=== PATIENT | male | born 1945 | race Caucasian/White ===

== ENCOUNTER 2023-04-12 18:54 | Emergency (ER) | payer MEDICARE, SELFPAY ==
[2023-04-12 19:12] VITALS: BP 151/61; PULSE 104; RESP 18; TEMP 36.7; O2SAT 95
--- NOTE | 2023-04-12 19:18 | ED.URI ---
HPI - URI/Sore Throat General Stated Complaint: Body Aches/Sore Throat/Cough History of Present Illness HPI Narrative: Patient presents requesting a covid test. Patient states 3 ays ago his symptoms started with runny nose, cough and body aches. no shortnnes of breath and no chest pain Related Data Home Medications Medication Instructions Recorded Confirmed allopurinol 300 mg tablet 300 mg PO DAILY 04/12/23 04/12/23 amlodipine 10 mg tablet 10 mg PO DAILY 04/12/23 04/12/23 atorvastatin 80 mg tablet 80 mg PO DAILY 04/12/23 04/12/23 finasteride 5 mg tablet 5 mg PO DAILY 04/12/23 04/12/23 lisinopril 40 mg tablet 40 mg PO DAILY 04/12/23 04/12/23 meloxicam 15 mg tablet 15 mg PO DAILY 04/12/23 04/12/23 terazosin 5 mg capsule 5 mg PO DAILY 04/12/23 04/12/23 testosterone 50 mg/5 gram (1 %) 2 packet transdermal DAILY 04/12/23 04/12/23 transdermal gel tramadol 50 mg tablet 50 mg PO TID PRN Pain (Scale Score 04/12/23 04/12/23 7-10) Allergies Allergy/AdvReac Type Severity Reaction Status Date / Time No Known Allergies Allergy Verified 04/12/23 19:25 Course Course Level of Care: Express Care Visit Vital Signs Vital signs: Vital Signs Temperature 36.7 C 04/12/23 19:12 Pulse Rate 104 H 04/12/23 19:12 Respiratory Rate 18 04/12/23 19:12 Blood Pressure 151/61 H 04/12/23 19:12 Pulse Oximetry 95 04/12/23 19:12 Oxygen Delivery Room Air 04/12/23 19:12 Temperature 36.7 C 04/12/23 19:12 Pulse Rate 104 H 04/12/23 19:12 Respiratory Rate 18 04/12/23 19:12 Blood Pressure 151/61 H 04/12/23 19:12 Pulse Oximetry 95 04/12/23 19:12 Oxygen Delivery Room Air 04/12/23 19:12 Discharge Plan Discharge Clinical Impression: COVID-19 Patient Disposition: Home, Self-Care Condition: Stable Instructions: Droplet Precautions (ED), COVID-19 (Coronavirus Disease 2019) (ED), Face Coverings (Masks) and COVID-19 (ED) Additional Instructions: Stay home - protect others by not exposing them. You are a public health risk if you have the flu. Don't go into public unless necessary. - Wash your hands, cover your cough/sneeze. - Stay hydrated - sip on things frequently. Water, tea, diluted lemon juice, and bone broth are all good choices. Eat if it sounds good, if not, just keep drinking - Vitamin C, Zinc, Echinacea may help in moderation. - Honey is as good as Robitussin for a cough, and has less side effects (do not give honey to babies under 2)- - Fevers = your body's way of fighting the virus. Your body knows that you can survive the fever, but hopes the virus can't. It means your immune system works - yay! It doesn't feel so good but as long as it can be kept below 103 and you can drink fluids, it is ok to have a fever. Remember, the fever is not the enemy! - The normal dose for acetaminophen (Tylenol) for an adult is 650 - 1,000 mg every 4-6 hours. It helps with pain and fever. - The normal dose for ibuprofen (Advil, Motrin) is 400 mg every 6 hours WITH FOOD. Do not take ibuprofen if you have heart disease, kidney disease, or ulcers. Acetaminophen would then be safer for you. - Taking more acetaminophen than recommended can cause liver failure. You don't want a liver transplant, follow the directions. - Taking more ibuprofen than recommended will increase your risk of high blood pressure, heart attack, kidney failure, or ulcers, but will NOT decrease your pain more than the normal dose. So please follow the directions. - If you are having trouble breathing, are vomiting so much that you aren't peeing at least 3 times per day, you have a severely stiff neck, a weird rash, fever greater than 103 or you seriously think you will not survive please return, call 911 or go to the Emergency Department. Prescriptions: No Action meloxicam 15 mg tablet 15 mg PO DAILY lisinopril 40 mg tablet 40 mg PO DAILY tramadol 50 mg tablet 50 mg PO TID PRN (Reason: Pain (Scale Score 7-10))
[2023-04-12 19:25] VITALS: BP 151/61; PULSE 104; RESP 18; TEMP 36.7; O2SAT 95
== END 2023-04-12 19:30 | disposition home or self-care (01) ==
PROVIDERS: Emergency Provider Nurse Practitioner Family; PCP Physician Assistant
DX: U07.1 COVID-19 (principal)
CPT/HCPCS: 87426; 87804; 99213; G0463

== ENCOUNTER 2024-01-25 10:03 | Emergency (ER) | payer MEDICARE, SELFPAY ==
--- NOTE | ~2024-01-25 | XR_ITS ---
EXAMINATION: XR chest 2V DATE: 01/25/2024 10:39 INDICATION: 2 weeks of cough TECHNIQUE: PA and lateral views of the chest were obtained. COMPARISON: None FINDINGS: Mild hyperexpansion of lungs with flattening of the diaphragm suggestive but not diagnostic of COPD. Very small right pleural effusion with blunting at the posterior sulcus. Mild streaky opacities at bi lateral lung bases and favor atelectasis over pneumonia. Subtle opacity with smooth curve margin pote ntially pleural-based projecting over the anterolateral right upper lung zone most evident for across the anterolateral right second rib. No pulmonary edema, pneumothorax or left pleural effusion. Heart size is normal. Mild thoracic spondylosis. IMPRESSION: 1. . Suggestive but not diagnostic of COPD. 2. Small right pleural effusion and mild streaky bibasilar opacities and favor atelectasis over pneum onia. 3. Indeterminate subtle masslike opacity projecting over the lateral right upper lung zone, potential ly pleural-based. Recommend chest CT for further evaluation. Reviewed, dictated and finalized at location [facility]. [facility] IMPRESSION: 1. . Suggestive but not diagnostic of COPD. 2. Small right pleural effusion and mild streaky bibasilar opacities and favor atelectasis over pneumonia. 3. Indeterminate subtle masslike opacity projecting over the lateral right uppe r lung zone, potentially pleural-based. Recommend chest CT for further evaluati on.
[2024-01-25 10:12] VITALS: BP 144/56; PULSE 66; RESP 16; TEMP 36.3; O2SAT 97
--- NOTE | 2024-01-25 10:23 | ED_ITS ---
HPI - URI/Sore Throat General Chief Complaint: Upper Respiratory Infection Stated Complaint: Chest Congestion/Shortness of Breath Time Seen by Provider: 01/25/24 10:17 Source: patient Mode of arrival: ambulatory Limitations: no limitations History of Present Illness HPI Narrative: 70-year-old male with history of hypertension presented for complaint of cough and chest congestion for 2 weeks. States the chest feels clogged, cough is nonproductive. Denies associated shortness of breath, wheezing, nausea, vomiting, diarrhea, fevers or lethargy. Taking Mucinex, TheraFlu for symptoms. Related Data Home Medications Medication Instructions Recorded Confirmed allopurinol 300 mg tablet 300 mg PO DAILY 04/12/23 04/12/23 amlodipine 10 mg tablet 10 mg PO DAILY 04/12/23 04/12/23 atorvastatin 80 mg tablet 80 mg PO DAILY 04/12/23 04/12/23 finasteride 5 mg tablet 5 mg PO DAILY 04/12/23 04/12/23 lisinopril 40 mg tablet 40 mg PO DAILY 04/12/23 04/12/23 meloxicam 15 mg tablet 15 mg PO DAILY 04/12/23 04/12/23 terazosin 5 mg capsule 5 mg PO DAILY 04/12/23 04/12/23 testosterone 50 mg/5 gram (1 %) 2 packet transdermal DAILY 04/12/23 04/12/23 transdermal gel tramadol 50 mg tablet 50 mg PO TID PRN Pain (Scale Score 04/12/23 04/12/23 7-10) Allergies Allergy/AdvReac Type Severity Reaction Status Date / Time No Known Allergies Allergy Verified 04/12/23 19:25 Review of Systems Review of Systems: CONSTITUTIONAL: Denies body aches, fever, chills, or sweats. EYES: Denies visual changes, redness, or discharge. ENT: Denies rhinorrhea, congestion, sore throat, or otalgia. CARDIOVASCULAR: Denies chest pain, palpitations, or edema. RESPIRATORY: Reports cough, denies sob, wheezing. GASTROINTESTINAL: Denies abdominal pain, nausea, vomiting, or diarrhea. SKIN: Denies rash MUSCULOSKELETAL: Denies back pain, joint pain, or myalgia. NEUROLOGIC: Denies headache All systems reviewed & are unremarkable except as noted in HPI and below PMFSH Past Medical History Medical History (Updated 01/25/24 @ 11:14 by QI Dotson HTN (hypertension) Comments At time of signature, I have reviewed and agree with nursing past medical, surgical, social and family history unless otherwise noted. Please see nursing chart for further information. There is no relevant family history pertinent to the presenting complaint Exam Narrative: GENERAL: Well-appearing, in no acute distress. EYES: EOMI. No redness or drainage. Conjunctivae normal. ENT: Mucous membranes pink and moist. No rhinorrhea. TMs normal bilaterally. Throat normal. Uvula midline. NECK: Normal AROM. Supple. CHEST: No respiratory distress. Faint rub to right mid lung otherwise Lungs clear. 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 HEART: Regular rate and rhythm. No murmur appreciated. ABDOMEN: Soft, nontender, nondistended, normal active bowel sounds. EXTREMITIES: Normal range of motion. No edema. SKIN: Warm, dry, Capillary refill normal. Normal skin turgor. NEURO: Alert and oriented x3. Gait steady. PSYCH: Normal affect. Course Course Emergency Course: Patient is aware of diagnosis, understands and agrees to treatment plan. Anticipatory guidance given. Patient agrees to follow-up as directed and is aware of reasons to seek care at the emergency department. Portions of this record may have been created with voice recognition software Level of Care: Express Care Visit Vital Signs Vital signs: Vital Signs Temperature 97.4 F L 01/25/24 10:12 Pulse Rate 66 01/25/24 10:12 Respiratory Rate 16 01/25/24 10:12 Blood Pressure 144/56 H 01/25/24 10:12 Pulse Oximetry 97 01/25/24 10:12 Oxygen Delivery Room Air 01/25/24 10:12 Temperature 97.4 F L 01/25/24 10:12 Pulse Rate 66 01/25/24 10:12 Respiratory Rate 16 01/25/24 10:12 Blood Pressure 144/56 H 01/25/24 10:12 Pulse Oximetry 97 01/25/24 10:12 Oxygen Delivery Room Air 01/25/24 10:12 MDM - URI/Sore Throat MDM Narrative Medical decision making narrative: Discussed physical exam findings and CXR with pt. States he was exposed to mesothelioma 24 years ago. Advised close f/u with pcp today. Faxed report of CXR to Jostin Gregory PA-C, provided disc for pt. Advised supportive measures and signs/symptoms to go to the ER. Pt is appropriate for outpt treatment and f/u. v/u. Differential Diagnosis Differential diagnosis: Likely bronchitis and other (Angioedema, perforation, asthma, pneumonia, PE, tension pneumothorax, cardiac tamponade [place], pericarditis, pleural effusion, CHF, bronchitis, cardiac arrhythmia) Imaging Data Radiologist's impression: Patient: Rufino Mike : 1945 MR#: [id number] Age: 78 Acct:[id number] Loc: [facility] ADM Date: 01/25/24Attending Dr: Ordering Physician: Yuko Ortega APRN Date of Service: 01/25/24 Procedure(s): XR chest 2V Accession Number(s): [id number] cc: Yuko Ortega APRN~ EXAMINATION: XR chest 2V DATE: 01/25/2024 10:39 INDICATION: 2 weeks of cough TECHNIQUE: PA and lateral views of the chest were obtained. COMPARISON: None FINDINGS: Mild hyperexpansion of lungs with flattening of the diaphragm suggestive but not diagnostic of COPD. Very small right pleural effusion with blunting at the posterior sulcus. Mild streaky opacities at bilateral lung bases and favor atelectasis over pneumonia. Subtle opacity with smooth curve margin potentially pleural-based projecting over the anterolateral right upper lung zone most evident for across the anterolateral right second rib. No pulmonary edema, pneumothorax or left pleural effusion. Heart size is normal. Mild thoracic spondylosis. IMPRESSION: 1. . Suggestive but not diagnostic of COPD. 2. Small right pleural effusion and mild streaky bibasilar opacities and favor atelectasis over pneumonia. 3. Indeterminate subtle masslike opacity projecting over the lateral right upper lung zone, potentially pleural-based. Recommend chest CT for further evaluation. Discharge Plan Discharge Clinical Impression: Acute lower respiratory tract infection, Abnormal chest x-ray Patient Disposition: Home, Self-Care Condition: Stable Instructions: Antibiotic Form, Pneumonia (ED) Additional Instructions: We discussed the need to follow up with your primary care provider today regarding the abnormal chest xray, and the need for CT scan for further evaluation. Call your primary care provider today. Pneumonia is a lung infection that can cause a fever, cough, and trouble breathing. How it spreads: When someone with bacterial pneumonia coughs, sneezes, or talks, they release respiratory droplets into the air that can be inhaled by others.?You can also get pneumonia by touching a contaminated surface or object and then touching your mouth or nose. You're generally contagious for around 48 hours after starting antibiotics and your fever goes away.? To prevent the spread of pneumonia, you can:? ? Get vaccinated? ? Wash your hands often with soap and water for 20 seconds? ? Cover your mouth with a tissue when you cough or sneeze? ? Avoid people who are already sick with pneumonia? ? Stay home when you have pneumonia Take antibiotics as directed until complete. eat small frequent meals. Get lots of rest and drink fluids. Alternate Tylenol and ibuprofen for pain/fever [id number] cough medication can cause drowsiness, take according to package directions If you have nasal congestion, you can take Zyrtec, Claritin along with Flonase spray Call your Primary Care Doctor and make a follow-up appointment in 3 days. Go to the ER for worsening symptoms or concerns Prescriptions: New azithromycin [Zithromax Z-Reynaldo] 250 mg tablet See Rx Instructions .ROUTE .COMPLEX Qty: 6 0RF Rx Instructions: For 250 mg dose pack: take 500 mg today (day 1), then 250 mg for 4 days (days 2-5) methylprednisolone [Medrol (Reynaldo)] 4 mg tablets,dose pack See Rx Instructions .ROUTE .COMPLEX Qty: 21 0RF Rx Instructions: orally per package directions No Action meloxicam 15 mg tablet 15 mg PO DAILY lisinopril 40 mg tablet 40 mg PO DAILY tramadol 50 mg tablet 50 mg PO TID PRN (Reason: Pain (Scale Score 7-10)) testosterone 50 mg/5 gram (1 %) gel 2 packet transdermal DAILY terazosin 5 mg capsule 5 mg PO DAILY atorvastatin 80 mg tablet 80 mg PO DAILY amlodipine 10 mg tablet 10 mg PO DAILY finasteride 5 mg tablet 5 mg PO DAILY allopurinol 300 mg tablet 300 mg PO DAILY Follow-up/Referrals: PHYSICIAN NOT ON STAFF,NONSTAFF [Primary Care Provider] - Time of Disposition: 11:15
== END 2024-01-25 11:23 | disposition home or self-care (01) ==
PROVIDERS: Emergency Provider Nurse Practitioner Family
DX: J22 Unspecified acute lower respiratory infection (principal); R91.8 Other nonspecific abnormal finding of lung field; I10 Essential (primary) hypertension
CPT/HCPCS: 71046; 99213; G0463

== ENCOUNTER 2024-10-30 20:31 | Observation (INO) | payer MEDICARE, SELFPAY ==
--- NOTE | ~2024-10-30 | CT_ITS ---
EXAMINATION: CT brain carl glez, 10/30/2024 20:55 CDT HISTORY: confusion COMPARISON: No comparisons available. Technique: Axial images obtained of the brain without contrast. One or more of the following dose reduction techniques were used: automated exposure control, adjustment of the mA and/or kV according to patient size, use of iterative reconstruction technique. Findings: No acute infarct or parenchymal hemorrhage. No abnormal mass or mass effect. No midline shift. No extra-axial fluid collections. No hydrocephalus. Mastoid air cells unremarkable. Sinuses and orbits unremarkable. No acute fracture. No significant facial or scalp soft tissue swelling evident. No radiopaque foreign body is seen. Impression: 1.No acute intracranial abnormality. Reviewed, dictated and finalized at location A. Impression: 1.No acute intracranial abnormality.
--- NOTE | ~2024-10-30 | XR_ITS ---
EXAMINATION: XR chest 1V portable 10/30/2024 21:33 INDICATION: Confusion TECHNIQUE:Portable AP supine frontal images of the chest were obtained. COMPARISON: 02/12/2024 FINDINGS: Left-sided central venous catheter with its tip at the junction between the left brachiocephalic vein and superior vena cava. No pneumothorax. No pleural effusion. No free air under the diaphragm. Cardiomediastinal silhouette is mildly enlarged. Right hilar region is prominent. IMPRESSION: 1: Right hilar region is prominent. Differential includes overlapping vasculature, adenopathy, consolidation or mass. A chest CT with contrast is recommended. 2. Left-sided central venous catheter with its tip at the junction between the left brachiocephalic vein and superior vena cava. Reviewed, dictated and finalized at location Q. IMPRESSION: 1: Right hilar region is prominent. Differential includes overlapping vasculatu re, adenopathy, consolidation or mass. A chest CT with contrast is recommended. 2. Left-sided central venous catheter with its tip at the junction between the left brachiocephalic vein and superior vena cava.
--- NOTE | ~2024-10-30 | MR_ITS ---
EXAMINATION: MR brain/brain stem wo/w con DATE: 10/31/2024 10:55 INDICATION: CTA brain/carotid dated 10/30/2024 TECHNIQUE: Magnetic resonance imaging (MRI) of the brain and brainstem was performed without and with 15 cc MultiHance intravenous contrast. Sequences included sagittal and axial T1-weighted SE, axial diffusion-weighted FS SE, axial T2*-weighted GRE, axial T2-weighted FLAIR Propeller, and axial T2-weighted Propeller. Apparent diffusion coefficient (ADC) maps were created. COMPARISON: CTA brain/carotid dated 10/30/2024. FINDINGS: Brain parenchymal volume is normal for age. There are scattered mild periventricular and subcortical white matter changes, most likely related to small vessel ischemic disease (microangiopathy). No acute infarction or hemorrhage. No ventriculomegaly or midline shift. No abnormal contrast enha ncement. Paranasal sinuses are unremarkable. Structures of the posterior fossa including 7/8th cranial nerve complexes are normal. IMPRESSION: 1. No acute intracranial abnormality. 2: Chronic age-related findings. Reviewed, dictated and finalized at location O.
--- NOTE | ~2024-10-30 | CT_ITS ---
EXAMINATION: CTA brain carotid DATE: 10/31/2024 13:27 CDT INDICATION: Confusion TECHNIQUE: Computed tomographic angiography (CTA) of the head was performed with intravenous contrast. CTA of the neck was performed with intravenous contrast. The dose-length product was 1009.97 mGy-cm. Maximum intensity projection and volume rendered 3D-reconstructions were created by the technologist on a separate workstation. COMPARISON: None. FINDINGS: HEAD CTA: Bilateral middle cerebral arteries, anterior cerebral arteries and posterior cerebral arteries are grossly unremarkable. Basilar artery is unremarkable. Left vertebral artery is smaller than the right vertebral artery but is patent. Dental hardware with surrounding artifact which slightly limits evaluation. Visualized venous sinuses are unremarkable. NECK CTA: Dental hardware with shadowing artifact which limits evaluation. Evaluation is slightly limited due to motion artifact. Origin of the right common carotid artery is unremarkable. Right common carotid artery, right external carotid artery and right internal carotid artery are unremarkable. Origin of the left common carotid artery is widely patent. Small amount of odalis cified plaque in the mid left common carotid artery causing less than 10% stenosis. Small amount of calcified plaque in the proximal left internal carotid artery causing less than 10% stenosis. Visualized left external carotid artery is unremarkable. Remaining portions of the left internal carotid artery are unremarkable. Ventricular arteries are unremarkable. Left vertebral artery is smaller than the right vertebral artery. IMPRESSION: 1. Unremarkable CTA of the head. Left vertebral artery is smaller than the right vertebral artery but is patent. 2. Small amount of calcified plaque in the mid left common carotid artery causing less than 10% stenosis. Small amount of calcified plaque in the proximal left internal carotid artery causing less than 10% stenosis. Otherwise, unremarkable CTA of the neck. Reviewed, dictated and finalized at location Q. IMPRESSION: 1. Unremarkable CTA of the head. Left vertebral artery is smaller than the righ t vertebral artery but is patent. 2. Small amount of calcified plaque in the mid left common carotid artery causi ng less than 10% stenosis. Small amount of calcified plaque in the proximal lef t internal carotid artery causing less than 10% stenosis. Otherwise, unremarkab le CTA of the neck.
[2024-10-30 20:36] VITALS: BP 143/67; PULSE 92; RESP 18; TEMP 36.8; O2SAT 97
--- NOTE | 2024-10-30 20:43 | ECG_ITS ---
Test Date: 2024-10-30 21:10:07 Measurements Intervals Karval Rate: 73 P: 34 WV: 183 QRS: 20 QRSD: 86 T: 49 QT: 362 QTc: 400 Interpretive Statements SINUS RHYTHM POSSIBLE LEFT ATRIAL ENLARGEMENT [-0.1mV P WAVE IN V1/V2] No previous ECG available for comparison Electronically Signed On 10-31-2024 10:31:33 CDT by Kalpesh Malhotra M.D.
[2024-10-30 21:08] VITALS: BP 176/71; PULSE 75; PULSE 76; RESP 15; O2SAT 98
[2024-10-30 21:13] LABS: Hematocrit 34.7 % (42.0-52.0); Hemoglobin 11.1 g/dL (14.0-18.0); Immature Granulocyte Percent A 0.1 % (0-0.5); Lymphocytes Absolute Auto 1.36 K/mm3 (0.9-3.2); Mean Corpuscular HGB Conc 32.0 g/dl (32-36); Mean Corpuscular Hemoglobin 27.6 pg (26-34); Mean Corpuscular Volume 86.3 fl (80-100); Nucleated Red Blood Cells Absolute Auto 0.000 K/mm3 (0.0-0.012); Nucleated Red Blood Cells Perc 0.0 % (0.0-0.2); Platelet Count Result 233 k/mm3 (150-375); Red Blood Count 4.02 M/mm3 (4.6-6.20); White Blood Count 8.6 K/mm3 (4.5-10.0)
[2024-10-30 21:15] VITALS: BP 176/71; PULSE 80; RESP 16; O2SAT 100
[2024-10-30 21:24] LABS: INR 1.0; Prothrombin Time 13.2 Seconds (11.1-14.7)
[2024-10-30 21:25] LABS: Partial Thromboplastin Time 23.9 Seconds (22.3-36.8)
[2024-10-30 21:27] LABS: Add Urine Microscopic? YES; Appearance Urine Clear (Clear); Glucose Urine UA Negative (Negative); Leukocyte Esterase Ur Negative LEU/UL (Negative); Nitrate Urine Negative (Negative); Non Pathogenic Casts 0-2; Specific Grav Ur 1.037 (1.001-1.035)
[2024-10-30 21:28] LABS: Alanine Aminotransferase 28 U/L (6-50); Albumin Level 3.9 g/dL (3.5-5.1); Alkaline Phosphatase 122 U/L (38-126); Anion Gap 7 mmol/L (4-12); Aspartate Amino Transferase 28 U/L (17-59); Bilirubin,Total 0.3 mg/dL (0.2-1.3); Blood Urea Nitrogen 33 mg/dL (9-20); Calcium 9.0 mg/dL (8.4-10.2); Carbon Dioxide 26 mmol/L (22-30); Chloride 103 mmol/L (98-107); Estimated CRCL calculation 60 ml/min; Estimated Glomerular Filt Rate > 60; Glucose 100 mg/dL (65-110); Potassium 4.3 mmol/L (3.4-5.0); Sodium 136 mmol/L (137-145); Total Protein 7.1 g/dL (6.3-8.2)
--- NOTE | 2024-10-30 21:36 | ED.GENADULT ---
HPI - General Adult General Chief complaint: Neuro Symptoms/Deficit Stated complaint: can't remember anything Time Seen by Provider: 10/30/24 20:42 History of Present Illness HPI narrative: Patient is a 79-year-old male who presents emergency department this evening due to concern for stroke-like symptoms. Patient states approximately 30 minutes to an hour prior to arrival he started to feel confused and states that he can not remember things and could not explain to his significant other when he wanted to do was having some trouble finding words. Denies any history of strokes. Denies any blood thinner use. Denies any head trauma today. Otherwise patient is answering all my questions appropriately, is alert and oriented to person, place, time and situation, any of score 0. Related Data Home Medications ?Medication ?Instructions ?Recorded ?Confirmed ?Last Taken ?Type allopurinol 300 mg tablet 300 mg PO DAILY 04/12/23 04/12/23 Unknown History amlodipine 10 mg tablet 10 mg PO DAILY 04/12/23 04/12/23 Unknown History atorvastatin 80 mg tablet 80 mg PO DAILY 04/12/23 04/12/23 Unknown History finasteride 5 mg tablet 5 mg PO DAILY 04/12/23 04/12/23 Unknown History lisinopril 40 mg tablet 40 mg PO DAILY 04/12/23 04/12/23 Unknown History meloxicam 15 mg tablet 15 mg PO DAILY 04/12/23 04/12/23 Unknown History terazosin 5 mg capsule 5 mg PO DAILY 04/12/23 04/12/23 Unknown History testosterone 50 mg/5 gram (1 %) 2 packet transdermal DAILY 04/12/23 04/12/23 Unknown History transdermal gel tramadol 50 mg tablet 50 mg PO TID PRN Pain (Scale Score 04/12/23 04/12/23 Unknown History 7-10) Allergies Allergy/AdvReac Type Severity Reaction Status Date / Time No Known Allergies Allergy Verified 04/12/23 19:25 Review of Systems Review of Systems: All systems are reviewed and are negative unless stated otherwise in the HPI. [facility] Past Medical History Medical History HTN (hypertension) Exam Narrative: General: Alert, awake, afebrile, in no acute distress. HEENT: PERRL, no rhinorrhea, no post nasal drip, oropharynx clear. Neck: Trachea midline, no JVD, no lymphadenopathy. Cardiovascular: Regular rate and rhythm, no murmurs, rubs or gallops, no peripheral edema. Respiratory: Clear to auscultation bilaterally, no tachypnea, no wheezing, no rhonchi, no rubs, no respiratory distress. Abdomen: Soft, nontender, nondistended, no rebound, no guarding, no peritoneal signs. Musculoskeletal: No joint swelling or deformity, normal muscle tone. Skin: No rashes or petechia, no signs of infection. Psychiatric: Alert and oriented, normal behavior and judgment for situation. Neurological: Alert and oriented to person, place, and time. Follows all commands. No focal deficits, 5/5 motor strength in the bilateral upper and lower extremity, sensation intact and equal in the bilateral upper and lower extremity, cranial nerves 2-12 grossly intact speech is clear and fluent, gait intact and normal. Course Vital Signs Vital signs: Vital Signs Temperature 98.3 F 10/30/24 20:36 Pulse Rate 92 10/30/24 20:36 Respiratory Rate 18 10/30/24 20:36 Blood Pressure 143/67 H 10/30/24 20:36 Pulse Oximetry 97 10/30/24 20:36 Oxygen Delivery Room Air 10/30/24 20:36 Temperature 98.3 F 10/30/24 20:36 Pulse Rate 80 10/30/24 21:15 Respiratory Rate 16 10/30/24 21:15 Blood Pressure 176/71 H 10/30/24 21:15 Pulse Oximetry 100 10/30/24 21:15 Oxygen Delivery Room Air 10/30/24 20:36 Medical Decision Making MDM Narrative Medical decision making narrative: The patient was evaluated by myself in the emergency department. History is obtained from patient who is an independent historian and physical exam was performed. External medical records were reviewed at this time. IV was established and pertinent tests were ordered. EKG was obtained which revealed sinus rhythm rate 73 beats per Min. No ST changes, T wave inversions or evidence of acute ischemia. EKG was independently interpreted by me and is currently pending official cardiology read. Laboratory results obtained revealing no acute process. Urinalysis unremarkable. Imaging studies obtained included CT brain without IV contrast and CT angiogram head and neck which was independently interpreted by me revealing no acute process, which is pending final radiology interpretation. At this time, patient was informed of these findings at bedside. Case discussed with the on-call neurologist Dr. Del Toro at 2150 and he accepted consultation. case was discussed with the on-call hospitalist Dr. Carlson who accepted admission. Differential diagnosis considerations include CVA, delirium, dementia. Comorbidities impacting this visit include none. I have evaluated and discussed social determinants of health with the patient that could potentially impact subsequent diagnosis and treatment plans. On repeat assessment of the patient, reevaluation revealed that the patient is doing well and is in no acute distress. Patient symptoms have improved since he arrived to our emergency department. Repeat vital signs were all reviewed and noted to be stable. Differential diagnosis and treatment plan were discussed with the patient at bedside. Patient agrees with discussion and after shared medical decision making agrees with admission. All questions were answered to the patient's satisfaction. Vital Signs Vital Signs: Vital Signs Temperature 98.3 F 10/30/24 20:36 Pulse Rate 92 10/30/24 20:36 Respiratory Rate 18 10/30/24 20:36 Blood Pressure 143/67 H 10/30/24 20:36 Pulse Oximetry 97 10/30/24 20:36 Oxygen Delivery Room Air 10/30/24 20:36 Temperature 98.3 F 10/30/24 20:36 Pulse Rate 80 10/30/24 21:15 Respiratory Rate 16 10/30/24 21:15 Blood Pressure 176/71 H 10/30/24 21:15 Pulse Oximetry 100 10/30/24 21:15 Oxygen Delivery Room Air 10/30/24 20:36 Lab Data 10/30/24 21:00 10/30/24 21:00 Labs: Lab Results 10/30/24 10/30/24 10/30/24 Range/Units 20:40 21:00 21:18 WBC 8.6 (4.5-10.0) K/mm3 RBC 4.02 L (4.6-6.20) M/mm3 Hgb 11.1 L (14.0-18.0) g/dL Hct 34.7 L (42.0-52.0) % MCV 86.3 (80-100) fl MCH 27.6 (26-34) pg MCHC 32.0 (32-36) g/dl RDW 16.4 H (11.5-14.5) % Plt Count 233 (150-375) k/mm3 MPV 10.3 (7.4-10.4) fl Immature Gran % (Auto) 0.1 (0-0.5) % Neut % (Auto) 65.9 (45.5-73.1) % Lymph % (Auto) 15.8 L (18.3-44.2) % [place] % (Auto) 8.7 H (2.6-8.5) % Eos % (Auto) 8.7 H (0-4.4) % Baso % (Auto) 0.8 (0.2-1.2) % Lymph # (Auto) 1.36 (0.9-3.2) K/mm3 [place] # (Auto) 0.8 H (0.1-0.6) K/mm3 Eos # (Auto) 0.8 H (0-0.3) K/mm3 Baso # (Auto) 0.1 (0.0-0.1) K/mm3 Abs Immat Gran (auto) 0.01 (0.00-0.031) K/mm3 Absolute Neuts (auto) 5.7 (1.3-6.7) K/mm3 Absolute Nucleated RBC 0.000 (0.0-0.012) K/mm3 Nucleated RBC % 0.0 (0.0-0.2) % PT 13.2 (11.1-14.7) Seconds INR 1.0 APTT 23.9 (22.3-36.8) Seconds Sodium 136 L (137-145) mmol/L Potassium 4.3 (3.4-5.0) mmol/L Chloride 103 (98-107) mmol/L Carbon Dioxide 26 (22-30) mmol/L Anion Gap 7 (4-12) mmol/L BUN 33 H (9-20) mg/dL Creatinine 0.81 (0.7-1.3) mg/dL Estim Creat Clear Calc 60 ml/min Estimated GFR > 60 (59 - ) Glucose 100 (65-110) mg/dL POC Capillary Glucose 95 (65-105) mg/dl Calcium 9.0 (8.4-10.2) mg/dL Magnesium 1.6 (1.6-2.3) mg/dL Total Bilirubin 0.3 (0.2-1.3) mg/dL AST 28 (17-59) U/L ALT 28 (6-50) U/L Alkaline Phosphatase 122 (38-126) U/L Total Protein 7.1 (6.3-8.2) g/dL Albumin 3.9 (3.5-5.1) g/dL Urine Color Yellow (Yellow) Urine Appearance Clear (Clear) Urine pH 6.5 (5.0-9.0) Ur Specific [place] 1.037 H (1.001-1.035) Urine Protein 1+ H (Negative) mg/dL Urine Glucose (UA) Negative (Negative) mg/dL Urine Ketones Negative (Negative) mg/dL Ur Blood (Man) Negative (Negative) Urine Nitrate Negative (Negative) Urine Bilirubin Negative (Negative) Urine Urobilinogen 1.0 (<2.0) mg/dL Leukocyte Esterase Rfl Negative (Negative) PENNIE/UL Urine RBC 0-2 (0-2) /hpf Urine WBC 0-5 (0-3) /hpf Ur Squamous Epith Cells None seen (Few) /hpf Urine Bacteria None seen /hpf Urine Casts 0-2 Discharge Plan Discharge Clinical Impression: Confusion, Expressive aphasia Patient Disposition: Still a Patient Condition: Improved Patient Language: [place] Citizen Prescriptions: No Action meloxicam 15 mg tablet 15 mg PO DAILY lisinopril 40 mg tablet 40 mg PO DAILY tramadol 50 mg tablet 50 mg PO TID PRN (Reason: Pain (Scale Score 7-10)) testosterone 50 mg/5 gram (1 %) gel 2 packet transdermal DAILY terazosin 5 mg capsule 5 mg PO DAILY atorvastatin 80 mg tablet 80 mg PO DAILY amlodipine 10 mg tablet 10 mg PO DAILY finasteride 5 mg tablet 5 mg PO DAILY allopurinol 300 mg tablet 300 mg PO DAILY azithromycin [Zithromax Z-Reynaldo] 250 mg tablet See Rx Instructions .ROUTE .COMPLEX Qty: 6 0RF Rx Instructions: For 250 mg dose pack: take 500 mg today (day 1), then 250 mg for 4 days (days 2-5) methylprednisolone [Medrol (Reynaldo)] 4 mg tablets,dose pack See Rx Instructions .ROUTE .COMPLEX Qty: 21 0RF Rx Instructions: orally per package directions Follow-up/Referrals: PHYSICIAN NOT ON STAFF,NONSTAFF [Non-Staff] Time of Disposition: 22:40
--- OUTSIDE RECORDS SUMMARY | 2024-10-30 21:50 | XMS_ITS | Clinical Summary ---
Author Organization [facility] Address [address] [place] [id number] Care Team Providers Care Materials Buyer Name Role Phone Jostin Gregory Primary Care Provider Liliana Cameron MD Unavailable Libertad Bolden MD Unavailable Johnny Kohler MD Unavailable [phone] Narinder Gore MD PhD Unavailable Allergies No known active allergies Medications multivitamin-Ca -iron-minerals tabletIndicatio ns:Mineral Deficiency Prevention,Magy min Deficiency Prevention Take 1 tablet by mouth every evening Active aspirin 81 mg enteric coated tabletIndicatio ns:prevention of thrombosis Take 1 tablet (81 mg total) by mouth every evening Active terazosin (HYTRIN) 5 mg capsule Take 1 capsule (5 mg total) by mouth nightly 90 capsule 11 4 025 Active acetaminophen 500 mg capsuleIndicati ons:Pain Take 2 capsules (1,000 mg total) by mouth every 6 (six) hours 5 Active polyethylene glycol (MIRALAX) 17 gram/dose bulk powder Take 17 g by mouth daily 5 Active allopurinoL (ZYLOPRIM) 300 mg tablet TAKE 1 TABLET BY MOUTH EVERY DAY 90 tablet 3 5 Active ramipriL (ALTACE) 5 mg capsule Take 1 capsule (5 mg total) by mouth daily 1 capsule 5 Active Gemtesa 75 mg tablet Take 75 mg by mouth daily 5 Active naloxone (NARCAN) 4 mg/actuation spray,non-aeros ol Administer 1 spray into affected nostril(s) as needed for opioid reversal or respiratory depression Call 911. Administer a single spray in one nostril. Repeat every 3 minutes as needed if no or minimal response. 1 each 1 5 Active finasteride (PROSCAR) 5 mg tablet Take 1 tablet (5 mg total) by mouth daily 90 tablet 3 5 Active famotidine (PEPCID) 20 mg tablet TAKE 1 TABLET BY MOUTH TWICE A DAY 180 tablet 3 5 Active inhalational spacing device spacer 1 each daily 1 each 5 Active albuterol HFA (PROVENTIL HFA,VENTOLIN HFA,PROAIR HFA) 90 mcg/actuation inhaler Inhale 2 puffs every 4 (four) hours as needed for shortness of breath (cough) 6.7 each 1 5 Active testosterone 50 mg/5 gram (1 %) APPLY 2 PACKETS ON THE SKIN DAILY 900 g 3 5 Active pancrelipase (CREON) 36,000 units of lipase capsule Take 2 pills with meals and 1 pill with snacks. Do not exceed 9 pills in 24 hours. 300 capsule 3 5 Active atorvastatin (LIPITOR) 40 mg tablet 1 tablet ONCE DAILY (route: oral) 5 Active cholecalciferol (VITAMIN D-3) 2000 unit tablet Take 1 tablet (2,000 Units total) by mouth daily Active oxyBUTYnin XL (DITROPAN-XL) 10 mg 24 hr tabletIndicatio ns:Nocturia Take 1 tablet (10 mg total) by mouth daily 30 tablet 11 5 026 Active amLODIPine (NORVASC) 10 mg tablet Take 1 tablet (10 mg total) by mouth daily 5 Active oxyCODONE (ROXICODONE) 5 mg immediate release tabletIndicatio ns:Pain Take 1 tablet (5 mg total) by mouth every 4 (four) hours as needed for pain 40 tablet 5 Active sertraline (ZOLOFT) 50 mg tabletIndicatio ns:Mesothelioma (pleural) (HCC),Depressio n, unspecified depression type Take 1 tablet (50 mg total) by mouth daily 30 tablet 1 5 026 Active fentaNYL (DURAGESIC) 25 mcg/hrIndicatio ns:Cancer related pain,Mesothelio ma (pleural) (HCC) Place 1 patch on the skin every third day for 72 hours 10 patch 5 025 Discontin ued(Thera py completed ) oxyCODONE (ROXICODONE) 5 mg immediate release tabletIndicatio ns:Pain Take 1 tablet (5 mg total) by mouth every 4 (four) hours as needed for pain 40 tablet 5 025 Discontin ued(Reord er) Active Problems Patient Care Coordination No te Formatting of this note migh t be different from the original. Referring provider: BIB Grider, Dr. Boogie Menchaca Mr. Rufino Mike is a 78-year-old with pleural thickening. He initially presented with symptoms of a cough and had an abnormal chest x-ray. On 02/10/2024 the patient underwent chest CT with contrast which showed a new small right pleural effusion with associated compressive atelectasis. There was chronic partially calcified pleural plaquing likely reflecting prior asbestos exposure. There does appear to be increased indeterminate noncalcified pleural thickening within the anterior right upper lobe and right lung base. On 02/25/2024 the patient underwent a PET scan which showed multifocal right pleural nodularity with a dominant mass, superiorly demonstrating marked FDG avidity, suspicious for malignant mesothelioma. There are other scattered areas of pleural thickening with moderate to marked increased FDG avidity which may represent additional sites of disease. There was interval increase in size of a now moderate pleural effusion which demonstrates minimal FDG avidity, suspicious for an associated malignant pleural effusion. There was interval development of fat stranding surrounding the pancreas with associated diffusely mildly increased FDG avidity which may be seen in the setting of acute interstitial edematous pancreatitis. Unfortunately they were unable to do a percutaneous biopsy as the right pleural lesion was not assessable. Patient has a history of renal oncocytoma status post resection in 2021 and testicular cancer status post radiation in the . He does report significant expressed this exposure in the past. Patient is a never smoker. Patient presents today for further surgical evaluation. Problem Noted Date Diagnosed Date Mediastinal lymphadenopathy 09/13/2024 Lightheadedness 08/31/2024 Dyspnea 06/14/2024 Fitting and adjustment of vascular catheter 03/27 Mesothelioma (pleural) 04/04/2024 Cancer Staging:Clinical stage from 04/04/2024:Stage IIIA(cT3, cN0, cM0) - Signed by Johnny Kohler MD on 04/04/2024 Pathologic stage from 04/04/2024: Unsigned Gout 03/23/2024 Assessment & Plan (03/23/2024 6:22 PM LEHR STRIPPER): - Restart home allopurinol VERNELL on CPAP 07/08/2023 Assessment & Plan (07/08/2023 7:04 AM CDT): On CPAP and following w/ Dr. Bolden Anemia of chronic disease 07/08/2023 Overview (07/08/2023): H/H have been stable. His last iron was normal and so is B12. We will continue to monitor and update the iron panel with next labs Vitamin D deficiency 07/08/2023 Overview (07/08/2023): D level 35, last 32. Carpal tunnel syndrome on right 07/02/2023 Hiatal hernia 06/09/2023 Renal cell carcinoma, left 06/09/2022 Personal history of colonic polyps 03/25/2022 Overview (03/25/2022): Added automatically from request for surgery [id number] Assessment & Plan (06/30/2022 10:47 AM CDT): Last colonoscopy completed 08/2017. Repeat colonoscopy due this year. 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 09/05/2021 Assessment & Plan (03/23/2024 6:20 PM LEHR STRIPPER): - Restart pancrelipase Irritable bowel syndrome with diarrhea 2 Pancreatic insufficiency 06/26/2021 Assessment & Plan (06/26/2021 9:58 AM CDT): On creo from gi and helps for most part Benign prostatic hyperplasia 06/26/2021 Assessment & Plan (03/23/2024 6:21 PM LEHR STRIPPER): - Restart home finasteride Assessment & Plan (06/26/2021 10:13 AM CDT): See's uro again Orthostatic hypotension 06/26/2021 Assessment & Plan (06/26/2021 10:16 AM CDT): Mild and see if can push sitting bp a l ittle lower and not cause standing light headness Intermittent diarrhea 03/13/2021 Diarrhea 11/30/2020 Assessment & Plan (02/14/2021 4:22 PM LEHR STRIPPER): Patient has chronic diarrhea. Will start by stool culture and stool studies. Trial of Flagyl 500 mg p.o. t.i.d. for 7 days. Discussed with the patient diet modification to decrease dairy products. If no improvement with these simple lesions then will plan repeat colonoscopy with biopsy in the next visit. Assessment & Plan (11/30/2020 12:51 PM CDT): Intermittent. Usually associated with bloating and nausea whenever he eats salad in restaurants. I suspect this is more likely due to lactose intolerance. He was counseled to avoid excessive cheese, and other dairy products. He was advised to keep a food diary. Advised to call me if symptoms worsen. Gastroesophageal reflux disease 11/30/2020 Assessment & Plan (02/14/2021 4:23 PM LEHR STRIPPER): He has symptoms of mild gastroesophageal reflux disease and dyspepsia. This could be related to his the diabetes. He will continue Pepcid this time and the see if diet modifications will help. If not we can try Reglan before meals. Follow-up in the GI office in 4-6 weeks. Assessment & Plan (11/30/2020 12:50 PM CDT): Intermittently symptomatic. Doing well okay on Pepcid 20 mg daily. Counseled on anti-reflux measures. Diastasis recti 11/30/2020 Assessment & Plan (11/30/2020 12:49 PM CDT): Chronic. Continue close observation. PSA elevation 09/28/2019 Assessment & Plan (06/26/2021 10:12 AM CDT): Has seen uro for awhile and will refer Assessment & Plan (10/25/2020 10:34 AM CDT): psa down to .34 and now V laura nl . Release the dx. Or remove Assessment & Plan (09/28/2019 10:07 AM CDT): Will recheck PSA. referrral to urologist, Dr Hart At low risk for fall 02/08/2018 Assessment & Plan (06/26/2021 10:07 AM CDT): Low fall risk Assessment & Plan (02/10/2019 11:30 AM LEHR STRIPPER): Low fall risk Assessment & Plan (02/08/2018 11:05 AM LEHR STRIPPER): Low risk PE (physical exam), annual 02/08/2018 Assessment & Plan (11/12/2023 7:22 AM CDT): Discussed routine screenings and vaccines Assessment & Plan (06/26/2021 10:11 AM CDT): Well exam low fall risk depreoisn screen neg ad nscores 0. Cognitive screen Nl see's dr purdy(gi) and dr tom . Up to date on colon had flu shot both p shots covid updated. Shingles shot series Consider Assessment & Plan (02/10/2019 11:30 AM LEHR STRIPPER): Low fall risk depresion screen nl cog screen nl had flu shot and both hp shots colon up to date. Consider the shingles s hot series. Activity p rogram is important to ddo Assessment & Plan (02/08/2018 11:33 AM LEHR STRIPPER): depresoin screen not meeting criteria but screen to start higher. Declines meds for now and keep tract of. Screening cmp. ldl at 90/. Check spa on return. Colon screen 2017 and 4 monre yrs. psa marek and check onreturn. Flu shot todoay. Shingles shot in future. p shots up to date Chronic right shoulder pain 02/08/2018 Assessment & Plan (02/08/2018 11:27 AM LEHR STRIPPER): r shoulder reports partial tear but litle to co to me today. This is anot something to do Surgery for under your discription. So sself pt trial and ortho r\f/u or [id number] Retferral for. 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 Encouraged to schedule appointmennt for eval sooner than 05/2025 Continue Rx: Atorvastatin, ramipril aspirin daily Assessment & Plan (06/26/2021 10:07 AM CDT): Angina stable and keep meds same Assessment & Plan (03/14/2021 9:38 AM LEHR STRIPPER): Stable check pasin and con tmreedds as on Assessment & Plan (09/19/2019 10:36 AM CDT): Chest pain s table and contmeds and risk contorll Assessment & Plan (02/10/2019 11:33 AM LEHR STRIPPER): Chest pain r=free ekg with pacs nsr rate 69 axis 25 and nl. The extra b eats I heard are pac's not a fib that was loking for Assessment & Plan (01/13/2019 11:51 AM LEHR STRIPPER): Cardiac workup last year was negative patient remains asymptomatic continue current medications and focus on risk factor modifications especially he has borderline diabetes and needs to lose weight Assessment & Plan (05/12/2018 10:52 AM CDT): Stable heart. No changes and risk contorll Assessment & Plan (02/08/2018 11:14 AM LEHR STRIPPER): Chest pain free. And cont meds Assessment & Plan (08/06/2017 8:45 AM CDT): Stable with pain meds. Cont and watch heat. IGT (impaired glucose tolerance) 09/17/2016 Assessment & Plan (06/26/2021 10:05 AM CDT): a1c stable and a1c 5.7 now Assessment & Plan (10/25/2020 10:32 AM CDT): a1c droped to 5.7 from 6.1 so much beteter. Assessment & Plan (09/19/2019 10:37 AM CDT): a1c at 5.8 adm stable and mildly high Assessment & Plan (02/10/2019 11:28 AM LEHR STRIPPER): a1c ag 6.2 and 6.5 diabettes Assessment & Plan (05/12/2018 10:53 AM CDT): a1c at 5.8 and 5.6 nl. Assessment & Plan (02/08/2018 11:14 AM LEHR STRIPPER): a1c at 5.7 and 5.6 nl. Assessment & Plan (08/06/2017 8:46 AM CDT): a1c up to 6.0 and watch diet Assessment & Plan (04/08/2017 5:05 PM LEHR STRIPPER): a1c at 5.6 and 5.6 andlessnl. Assessment & Plan (09/17/2016 10:48 AM CDT): The a1c at 5.8 and a5.6 and less nl. So close but not quit nl. Igt is the reduction of tolerance to simple carbs and usually looked at as a pre diabetic state. For most losing weight. Controlling the intake of simple carbs is helpful in improving this. We follow the a1c of most patients to monitor this Nocturia 09/17/2016 Assessment & Plan (07/16/2023 11:17 AM CDT): Pt to follow up with urologist. Assessment & Plan (08/22/2021 2:53 PM CDT): Check psa Assessment & Plan (02/10/2019 11:32 AM LEHR STRIPPER): Check psa on return Assessment & Plan (05/12/2018 10:52 AM CDT): psa at .893 and good. Assessment & Plan (02/08/2018 11:26 AM LEHR STRIPPER): Check psa on retiurn. Assessment & Plan (09/17/2016 10:49 AM CDT): chesk psa on return Male hypogonadism 09/03/2016 Assessment & Plan (07/16/2023 11:16 AM CDT): Chronic , stable Continue T replacement Update PSA Assessment & Plan (08/22/2021 2:53 PM CDT): Continue T replacement with Androgel Assessment & Plan (03/14/2021 9:39 AM LEHR STRIPPER): ldl at 72 and with known ascvd risk would suggest ading a Small dose of zetia and drop tighte 5 mg on generally joyce drop 20 points and would not expet to need more Or ciet and see. Assessment & Plan (04/20/2020 10:18 AM LEHR STRIPPER): Continue T replacement with Androgel Assessment & Plan (09/28/2019 10:07 AM CDT): Continue T replacement with Androgel Assessment & Plan (09/22/2018 9:41 AM CDT): continue T replacement. rx sent Assessment & Plan (09/21/2017 2:42 PM CDT): Continue Androgel. Assessment & Plan (03/23/2017 11:26 AM LEHR STRIPPER): Continue Androgel Advised him on seeing his urologist to have prostate checked Assessment & Plan (09/17/2016 10:50 AM CDT): On hormones and not clear if makes a difference. joyce ask to review if this is worth the risk. As heart risk Hypertension, essential 12/24/2015 Overview (05/30/2016): BENIGN HYPERTENSION Assessment & Plan (09/05/2024 9:11 AM CDT): BP Readings from Last 3 Encounters: 09/05/24 110/60 08/31/24 163/72 08/22/24 141/51 Chronic condition. Stable and at goal SBP <140. Continue ramipril as Rx. -takes at HS, 12 hours before this visit Discussed the risks of hypertension. Recommend heart-healthy diet and regular exercise. Assessment & Plan (08/04/2024 7:30 AM CDT): Recommend DASH diet, heart healthy lifestyle, exercise. Discussed the risks of hypertension. Assessment & Plan (03/28/2024 10:23 AM LEHR STRIPPER): Recommend DASH diet, heart healthy lifestyle, exercise. Discussed the risks of hypertension. Assessment & Plan (11/12/2023 7:23 AM CDT): Recommend DASH diet, heart healthy lifestyle, exercise. Discussed the risks of hypertension. Assessment & Plan (07/08/2023 7:02 AM CDT): Recommend DASH diet, heart healthy lifestyle, exercise. Discussed the risks of hypertension. Assessment & Plan (01/07/2023 7:03 AM LEHR STRIPPER): Recommend DASH diet, heart healthy lifestyle, exercise. Discussed the risks of hypertension. Assessment & Plan (06/30/2022 10:48 AM CDT): -chronic, stable -continue on amlodipine 10 mg daily, lisinopril 40 mg daily -follow up in 6 months with PCP Assessment & Plan (06/09/2022 8:35 AM CDT): Recommend DASH diet, heart-healthy lifestyle, exercise. Discussed the risks of hypertension. Assessment & Plan (12/16/2021 11:34 AM CDT): Bp in the office today BP Readings from Last 1 Encounters: 12/16/21 144/50 Continue current regimen Recommend DASH diet, heart-healthy lifestyle, exercise. Discussed the risks of hypertension. F/u at annual Assessment & Plan (06/26/2021 10:06 AM CDT): Echo htn effects otherwise stable puch sfor tight bp Hypertension, Medical treament revolves around weight control, salt management, and meds when necessary. long as weight loss is necessary and you are able to drop weight we can cont to monitor the blood pressure and not add meds. Once the weight is not changing then it becomes nesessary to add meds to be able to reach the goal bp. Assessment & Plan (03/14/2021 9:39 AM LEHR STRIPPER): bp good and heart stable no added meds Assessment & Plan (10/25/2020 10:32 AM CDT): The bp much better and probaly has to do with cpap now and Stay same on meds heart stable Hypertension, Medical treament revolves around weight control, salt management, and meds when necessary. long as weight loss is necessary and you are able to drop weight we can cont to monitor the blood pressure and not add meds. Once the weight is not changing then it becomes nesessary to add meds to be able to reach the goal bp. Assessment & Plan (06/20/2020 7:44 AM CDT): Recommend DASH diet, heart-healthy lifestyle, exercise. Discussed the risks of hypertension. Assessment & Plan (09/19/2019 10:36 AM CDT): bp good and heart stable and cont meds as on . Assessment & Plan (06/16/2019 10:01 AM CDT): Recommend DASH diet, heart-healthy lifestyle, exercise. Discussed the risks of hypertension. Assessment & Plan (02/10/2019 11:27 AM LEHR STRIPPER): bp stable on meds and no changes an dself check mopnthly the heart st able and ekg essentially nl meds on stay and no changes for now Assessment & Plan (03/18/2018 9:51 AM LEHR STRIPPER): BP is now well-controlled and cont current meds. Recommend DASH diet, heart- healthy lifestyle, exercise. Discussed the risks of hypertension. Assessment & Plan (02/08/2018 11:32 AM LEHR STRIPPER): Bp[ better then past but still high. If can cont to drop wt will drop bpHypertension, Medical treament revolves around weight control, salt management, and meds when necessary. long as weight loss is necessary and you are able to drop weight we can cont to monitor the blood pressure and not add meds. Once the weight is not changing then it becomes nesessary to add meds to be able to reach the goal bp.add terazosin 1mg at night and then afdter severqal week if still up then go to 2 pill and rpot Assessment & Plan (08/06/2017 8:48 AM CDT): bp good but sweat.heat.work can drop more and needs to be aware of. fornow bp not droping with standing and perfect. But a short distane away is low. Spell the other day in peak heat and then going back outthe next day. Did not learn enough from first day and a long sugmmer. Please ;change behavior or will be in the er or worseHypertension, Medical treament revolves around weight control, salt management, and meds when necessary. long as weight loss is necessary and you are able to drop weight we can cont to monitor the blood pressure and not add meds. Once the weight is not changing then it becomes nesessary to add meds to be able to reach the goal bp. Assessment & Plan (04/08/2017 5:03 PM LEHR STRIPPER): bp needs tighter given issue in ghte past. maxed on lisinorp. norvax interacts with statins at Higher doses. Wt off not reachable. Go to 25 on the hctz and see if will doHypertension, Medical treament revolves around weight control, salt management, and meds when necessary. long as weight loss is necessary and you are able to drop weight we can cont to monitor the blood pressure and not add meds. Once the weight is not changing then it becomes nesessary to add meds to be able to reach the goal bp. Assessment & Plan (09/17/2016 10:45 AM CDT): bp good and no changesHypertension, Medical treament revolves around weight control, salt management, and meds when necessary. long as weight loss is necessary and you are able to drop weight we can cont to monitor the blood pressure and not add meds. Once the weight is not changing then it becomes nesessary to add meds to be able to reach the goal bp. 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 Exercise is recommended. Hyperlipidemia 07/09/2013 Overview (05/28/2016): MIXED HYPERLIPIDEMIA Assessment & Plan (03/23/2024 6:19 PM LEHR STRIPPER): - Restart atorvastatin Assessment & Plan (11/12/2023 7:23 AM CDT): Counseled on heart healthy diet exercise Assessment & Plan (07/08/2023 7:02 AM CDT): Counseled on heart healthy diet and exercise Assessment & Plan (12/16/2021 11:33 AM CDT): Stable Recent labs look great F/u at annual. Annual labs ordered under pcp Assessment & Plan (06/26/2021 10:06 AM CDT): ldl at 60 and great and keep hereYour cholesterol in the form of ldl (bad) cholesterol,hdl(good) cholesterol and triglycerides are monitored. The triglycerides respond to reduction/controll of your simple carbs/sugars In such items as sugared soda/sweet tea along with fruit juices(containing natural sugar) even if no added sugar is added. LDL cholesterol is reduced with reducing daily intake of fats and krys. saturated fats. The monosaturated fats like olive oil are not harmful except in the calories they contained. Whole milk cheese needs to be remembered along with whole milk products And limited. Assessment & Plan (10/25/2020 10:33 AM CDT): ldl dropepod to 59 from 80. Now great and keep hereYour cholesterol in the form of ldl (bad) cholesterol,hdl(good) cholesterol and triglycerides are monitored. The triglycerides respond to reduction/controll of your simple carbs/sugars In such items as sugared soda/sweet tea along with fruit juices(containing natural sugar) even if no added sugar is added. LDL cholesterol is reduced with reducing daily intake of fats and krys. saturated fats. The monosaturated fats like olive oil are not harmful except in the calories they contained. Whole milk cheese needs to be remembered along with whole milk products And limited. Assessment & Plan (09/19/2019 10:38 AM CDT): ldl at last food and pending fro this am no chanfds and con tmeds and check on From today Assessment & Plan (02/10/2019 11:28 AM LEHR STRIPPER): ldl at 63 and want in low 60's for chance of reversal of cad stay On meds as onYour cholesterol in the form of ldl (bad) cholesterol,hdl(good) cholesterol and triglycerides are monitored. The triglycerides respond to reduction/controll of your simple carbs/sugars In such items as sugared soda/sweet tea along with fruit juices(containing natural sugar) even if no added sugar is added. LDL cholesterol is reduced with reducing daily intake of fats and krys. saturated fats. The monosaturated fats like olive oil are not harmful except in the calories they contained. Whole milk cheese needs to be remembered along with whole milk products And limited. Assessment & Plan (01/13/2019 11:51 AM LEHR STRIPPER): Lipid numbers are good on current doses of statin Assessment & Plan (05/12/2018 10:54 AM CDT): hdl up to 38 ldl down to 67. On fenofiabrate 135 and maxed atorvastin . As not an issue. 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 His hdl higher from it. Told I would not now start but as wstable and correction meds will cotn on as is. Your cholesterol in the form of ldl (bad) cholesterol,hdl(good) cholesterol and triglycerides are monitored. The triglycerides respond to reduction/controll of your simple carbs/sugars In such items as sugared soda/sweet tea along with fruit juices(containing natural sugar) even if no added sugar is added. LDL cholesterol is reduced with reducing daily intake of fats and krys. saturated fats. The monosaturated fats like olive oil are not harmful except in the calories they contained. Whole milk cheese needs to be remembered along with whole milk products And limited. Assessment & Plan (02/08/2018 11:13 AM LEHR STRIPPER): ldl at 90 and good for now. Relates ocasional calf cramp. But not clear if foot d ropingYour cholesterol in the form of ldl (bad) cholesterol,hdl(good) cholesterol and triglycerides are monitored. The triglycerides respond to reduction/controll of your simple carbs/sugars In such items as sugared soda/sweet tea along with fruit juices(containing natural sugar) even if no added sugar is added. LDL cholesterol is reduced with reducing daily intake of fats and krys. saturated fats. The monosaturated fats like olive oil are not harmful except in the calories they contained. Whole milk cheese needs to be remembered along with whole milk products And limited. Assessment & Plan (08/06/2017 8:49 AM CDT): ldl great at 69 and want her or lower. If goes up will Push meds moreYour cholesterol in the form of ldl (bad) cholesterol,hdl(good) cholesterol and triglycerides are monitored. The triglycerides respond to reduction/controll of your simple carbs/sugars In such items as sugared soda/sweet tea along with fruit juices(containing natural sugar) even if no added sugar is added. LDL cholesterol is reduced with reducing daily intake of fats and krys. saturated fats. The monosaturated fats like olive oil are not harmful except in the calories they contained. Whole milk cheese needs to be remembered along with whole milk products And limited. Assessment & Plan (04/08/2017 5:04 PM LEHR STRIPPER): ldl at 75 and great. No changesYour cholesterol in the form of ldl (bad) cholesterol,hdl(good) cholesterol and triglycerides are monitored. The triglycerides respond to reduction/controll of your simple carbs/sugars In such items as sugared soda/sweet tea along with fruit juices(containing natural sugar) even if no added sugar is added. LDL cholesterol is reduced with reducing daily intake of fats and krys. saturated fats. The monosaturated fats like olive oil are not harmful except in the calories they contained. Whole milk cheese needs to be remembered along with whole milk products And limited. Assessment & Plan (09/17/2016 10:47 AM CDT): ldl at 57 and this is at a level that we see some arterial disease being rever sed. Your cholesterol in the form of ldl (bad) cholesterol,hdl(good) cholesterol and triglycerides are monitored. The triglycerides respond to reduction/controll of your simple carbs/sugars In such items as sugared soda/sweet tea along with fruit juices(containing natural sugar) even if no added sugar is added. LDL cholesterol is reduced with reducing daily intake of fats and krys. saturated fats. The monosaturated fats like olive oil are not harmful except in the calories they contained. Whole milk cheese needs to be remembered along with whole milk products And limited. Resolved Problems Problem Noted Date Diagnosed Date Resolved Date Pleural effusion 05/03/2024 08/04/2024 Malignant pleural effusion 03/23/2024 0 08/04/2024 Assessment & Plan (03/23/2024 6:18 PM LEHR STRIPPER): 03/23: s/p R thoracoscopy with drainage of effusion, pleural biopsies, and placement of PleurX catheter - PleurX catheter clamped - DVT ppx - multimodal oral pain regimen - antiemetics Abnormal PET scan of lung 03/22/2024 Asymptomatic gallstones 06/09/202306/23 Rotator cuff strain, right, initial encounter 04/12/1907/08/2023 Accidental fall 04/12/2023 07/08/2023 Right hand pain 04/01/2023 07/08/2023 Left renal mass 12/12/2021 06/09/2022 Renal mass 11/26/2021 01/07/2023 Overview (11/26/2021): Added automatically from request for surgery [id number] Assessment & Plan (12/16/2021 12:27 PM CDT): Recent partial nephrectomy on 12/12. Continue following with Dr. Smith Weight loss 09/05/2021 01/07/2023 Paroxysmal supraventricular tachycardia 06/26/2021 11/12/2023 Assessment & Plan (06/26/2021 10:04 AM CDT): Seen on prior monitor no clinical presence or indiction to eval further Tubular adenoma of colon 03/13/2021 History of colonoscopy with polypectomy 03/13/2021 07/08/2023 Class 1 obesity due to exces s calories with body mass index (BMI) of 31.0 to 31.9 in adult 06/16/2019 06/09/2022 Assessment & Plan (06/26/2021 10:07 AM CDT): Wt stable Assessment & Plan (03/14/2021 9:38 AM LEHR STRIPPER): Wt stable and keep here or drop Assessment & Plan (10/25/2020 10:33 AM CDT): Work to drop wt Assessment & Plan (06/16/2019 10:16 AM CDT): He was counseled on the importance of maintaining a healthy weight and the risks of obesity. Weight loss recommended. PAC (premature atrial contraction) 02/10/2019 06/26/2021 Assessment & Plan (02/10/2019 11:34 AM LEHR STRIPPER): ekg not showing a fib that was loking for but a nl varient of irr heart beat that by self not concern . Not aware of but Reviewed diffreencwe Essential hypertension 01/13/201902/10 Assessment & Plan (01/13/2019 11:51 AM LEHR STRIPPER): Stable continue current medications BMI 31.0-31.9,adult 02/08/2018 10/26/19 Assessment & Plan (09/19/2019 10:41 AM CDT): Work to dorp some Assessment & Plan (02/10/2019 11:30 AM LEHR STRIPPER): Work to keep stable Assessment & Plan (05/12/2018 10:52 AM CDT): Work to drop a few Colon cancer screening 08/06/201702/08 Assessment & Plan (08/06/2017 8:50 AM CDT): 5 yr f.u due Other male erectile dysfunction 03/23/2017 02/08/2018 Assessment & Plan (09/21/2017 2:42 PM CDT): On Sildenafil. Assessment & Plan (03/23/2017 11:25 AM LEHR STRIPPER): Start Sildenafil. Recurrent abdominal pain 01/22/2017 Assessment & Plan (01/22/2017 3:42 PM LEHR STRIPPER): Scattered recurrent abd pain . Pizza last night and now nl. Vomiting seemed to clear c.o Will check sono of gallbaldder and if neg consider a hipatobiliray scan to further eval . Maybe ct. 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 On asa and plavix Abnormal glucose tolerance test (GTT) 07/09/2013 09/17/2016 Overview (05/30/2016): IMPAIRED ORAL GLUCSE DEB Encounters Date Type Department Care Team Description 10/27/2024 9:30 AM CDT Infusion [facility] [place] [facility] [address] [place] [address] [address] [place] [address] Mario Dumont, SHANAE Fitting and adjustment of vascular catheter (Primary Dx); Mesothelioma (pleural) (HCC) 10/27/2024 9:15 AM CDT Office Visit [facility] [address] [place] [address] Medical Office [address] [place] [address] Johnny Kohler MD Mesothelioma (pleural) (HCC) (Primary Dx); Mesothelioma, malignant (HCC); Cancer related pain; Depression, unspecified depression type 10/27/2024 8:45 AM CDT Lab [facility] [address] [facility] [address] [place] [address] Mesothelioma (pleural) (HCC) 10/27/2024 [facility] Out[facility] Care [address] [address] Avery Granda LPN 10/27/2024 [facility] Outreach [address] [address] Sandra Hicks MA 10/26/2024 Telephone [facility] Physicians [facility] Oncology [address] [place] [address] Medical Office [facility] [address] [place] [address] Aga Murphy, CLT 10/24/2024 5:41 PM CDT - 10/24/2024 8:10 PM CDT Emergency [facility] Emergency Department [address] [place] [address] Memory loss (Primary Dx) Discharge Disposition: Discharge to home or self care 10/13/2024 2:00 PM CDT Office Visit [facility] Medicine Oncology [address] [place] [address] [address] [place] [address] Narinder Gore MD PhD Mesothelioma (pleural) (HCC) (Primary Dx) 10/03/2024 9:30 AM CDT Infusion [address] [place] [address] Sree Lee, SHANAE Mesothelioma (pleural) (HCC) (Primary Dx); Fitting and adjustment of vascular catheter 10/03/2024 9:15 AM CDT Office Visit [facility] [address] [place] [address] Medical Office [address] [place] [address] Johnny Kohler MD Mesothelioma (pleural) (HCC) 10/03/2024 8:45 AM CDT Lab [facility] at [address] [place] [address] Mesothelioma (pleural) (HCC) 09/27/2024 Orders Only [facility] [address] [place] [address] Medical Office [address] [place] [address] Johnny Kohler MD Mesothelioma (pleural) (HCC) (Primary Dx) 09/26/2024 7:49 AM CDT - 09/26/2024 11:59 PM CDT Hospital Encounter [address] [address] Mesothelioma (pleural) (HCC); Mesothelioma, malignant (HCC) Discharge Disposition: Discharge to home or self care 09/23/[address] [address] PhoebeJaya 09/12/2024 1:45 PM CDT Office Visit [facility] Pulmonary at [address] [place] [address] Boogie Menchaca DO Mesothelioma (pleural) (HCC) (Primary Dx); Mediastinal lymphadenopathy; Shortness of breath 09/12/2024 9:30 AM CDT Infusion [address] [place] [address] Fitting and adjustment of vascular catheter (Primary Dx); Mesothelioma (pleural) (HCC) 09/12/2024 9:15 AM CDT Office Visit [facility] [address] [place] [address] Medical Office [address] [place] [address] Emelyn Boone, SQL PROGRAMMER ANALYST Mesothelioma (pleural) (HCC) 09/12/2024 8:45 AM CDT Lab [facility] at [address] [place] [address] Mesothelioma (pleural) (HCC) 09/05/2024 8:30 AM CDT Office Visit [facility] [place] [address] [facility] [address] [place] [address] Ngoc Hollis NP Hypertension, essential (Primary Dx); 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 09/02/2024 Telephone [facility] [place] [address] [facility] [address] [place] [address] Jostin Gregory PA Hospital Follow Up 09/02/2024 [facility] Outreach [address] [address] Selin Cheung MA 09/01/2024 [facility] Outreach [address] [address] Selin Cheung MA 08/31/2024 1:20 PM CDT - 08/31/2024 4:08 PM CDT Emergency [facility] Emergency Department [address] [place] [address] Lightheadedness (Primary Dx); Dyspnea, unspecified type Discharge Disposition: Discharge to home or self care 08/31/2024 Orders Only [facility] of [address] [place] [address] Johnny Kohler MD 08/22/2024 10:30 AM CDT Infusion [facility] [place] [address] [facility] [address] [place] [address] Mesothelioma (pleural) (HCC) (Primary Dx); Fitting and adjustment of vascular catheter 08/22/2024 10:00 AM CDT Office Visit [facility] [address] [place] [address] Office [address] [place] [address] Johnny Kohler MD Mesothelioma (pleural) (HCC) (Primary Dx); Mesothelioma, malignant (HCC) 08/22/2024 9:30 AM CDT Lab [facility] [place] [address] [facility] [address] [place] [address] Mesothelioma (pleural) (HCC) 08/19/2024 Telephone [facility] [address] [place] [address] Office [address] [place] [address] Johnny Kohler MD 08/16/2024 Orders Only [facility] of [address] Office [facility] [address] [place] [address] Johnny Kohler MD 08/05/2024 Telephone [facility] of [address] Office [facility] [address] [place] [phone] Aga Murphy, [place] 08/05/2024 Telephone [facility] Primary Care at [address] [address] Jostin Gregory PA 08/05/2024 Orders Only [facility] Primary Care at [address] [phone] Jostin Gregory PA Vitamin D deficiency (Primary Dx); Hypertension, essential; Acquired hypothyroidism; Hyperlipidemia, unspecified hyperlipidemia type; IFG (impaired fasting glucose) 08/04/2024 11:45 AM CDT Lab [address] [address] Vitamin D deficiency; Pure hypercholesterolemia; IGT (impaired glucose tolerance) 08/04/2024 11:00 AM CDT Office Visit [facility] Primary Care at [address] [phone] Jostin Gregory PA Pure hypercholesterolemia (Primary Dx); Hypertension, essential; Mesothelioma (pleural) (HCC); Vitamin D deficiency; IGT (impaired glucose tolerance); Acquired hypothyroidism; VERNELL on CPAP; BMI 25.0-25.9,adult 08/04/2024 Results Follow-Up [facility] Primary Care at [address] [phone] Jostin Gregory PA Surgical pathology 08/02/2024 Telephone [facility] Primary Care at [address] [phone] Jostin Gregory PA Appointment 08/01/2024 9:30 AM CDT [facility] Cancer [address] [place] [address] Fitting and adjustment of vascular catheter (Primary Dx); Mesothelioma (pleural) (HCC) 08/01/2024 9:15 AM CDT Office Visit [facility] [address] [place] [address] B [facility] [address] [place] [address] Johnny Kohler MD Hypotension, unspecified hypotension type (Primary Dx); Mesothelioma (pleural) (HCC); Cancer related pain 08/01/2024 8:45 AM CDT Lab [facility] at [address] [place] [address] Mesothelioma (pleural) (HCC); Hypotension, unspecified hypotension type 08/01/2024 Documentation [facility] of [address] [facility] [address] [place] [address] Ada Sow RN from Last 3 Months Immunizations Immunization Administration Dates Next Due Influenza, Quadrivalent, Hig h Dose, Preservative Free, Intrr 01/07/2023,01/06/2022,01/05/2022,01/09,12/01/2019 Influenza, Split 02/10/2012,02/11/2011 Influenza, Trivalent, High D ose, Split, Preservative Free, Intramuscular 11/12/2023,01/03/2019,02/08/2018,01/30,11/19/2015,03/20/2015 Influenza, Unspecified 11/12/2023(Deferr ed: Patient Refused),12/16/2021(Deferred: Patient Refused),10/25/2020(Deferred: Patient Refused) Moderna SARS-CoV-2 Monovalen t Vaccination (12+ YRS) 01/09/2021,05/05/2020,04/07/2020 Pneumococcal Conjugate PCV 13 11/19/2015 Pneumococcal Polysaccharide PPV23 02/10/2012 Tdap 03/28/2009 Surgical History Surgery Date Site/Laterality Comments COLONOSCOPY 03/24/2012 SURGERY SCROTAL / TESTICULAR 02/23/1985 - 02/22/1986 Bilateral Testicular cancer w/removal of testes CARDIAC CATHETERIZATION 02/23/2013 - 02/22/2014 NEPHRECTOMY 12/12/2021 Left COLONOSCOPY W/ BIOPSIES 09/16/2017 COLONOSCOPY W/ BIOPSIES 09/17/2022 CARPAL TUNNEL RELEASE 07/27/2023 Right BILATERAL VATS ABLATION 03/23/2024 PORTACATH PLACEMENT 04/08/2024 Medical History Medical History Date Comments Diabetes mellitus (HCC) Diabetes Gout gout Hx Other Medical 04/17/2013 viral gastroent eritis; Outcome: improved Hypertension Hypertension Chronic coronary artery disease Coronary artery disease Colon polyp Sleep apnea CPAP Hyperlipidemia Pancreas (digestive gland) w orks poorly Diarrhea d/t pancreas Renal mass, left Cancer (HCC) testicular Pleural nodule Mesothelioma, malignant (HCC) Mesothelioma (pleural) (HCC) mesothelioma Mesothelioma, malignant (HCC) Mesothelioma (pleural) (HCC) Renal cancer (HCC) Mesothelioma (pleural) (HCC) Family History Medical History Relation Name Comments Alzheimer's disease Brother 1 Raji Mike Dementia Brother 1 Raji Mike Dementia; Coronary artery disease Father Maverick nary artery disease; Dementia Mother Anesthesia problems Neg Hx Relation Name Status Comments Brother 1 Raji Mike Brother 2 Leonel Alive Father possible blood clot Mother Social History Tobacco Use Types Packs/Day Years Used Date Smoking Tobacco: Never Passive Smoke Exposure: Never Smokeless Tobacco: Never Tobacco Cessation:Counseling Given: Not Answered Alcohol Use Standard Drinks/Week Comments No 0 (1 standard drink = 0.6 oz pur e alcohol) PHQ-2 Answer Date Recorded PHQ-2 Total Score (If total score is 3 or more points, staff should administer the PHQ-9) 0 08/04/2024 AUDIT-C Answer Date Recorded Q1: How often do you have a drink containing alc ohol? Never 10/03/2024 Average Number of Drinks Not on file 025 Frequency of Binge Drinking Not on file 09/23 Personal Safety Answer Date Recorded Have you ever been in or are you currently in a harmful physical or emotional relationship or is someone making you feel afraid or unsafe? Denies 10/24/2024 Sex and Gender Information Value Date Recorded Sex Assigned at Not on file Legal Sex Male 9:41 AM LEHR STRIPPER Gender Identity Not on file Sexual Orientation Not on file Obstetrics History Last Filed Vital Signs Vital Sign Reading Time Taken Comments Blood Pressure 136/59 10/27/2024 9:16 AM CDT Pulse 80 10/27/2024 9:16 AM CDT Temperature 36.3 C (97.3 F) 10/27/2024 9:16 AM CDT Respiratory Rate 20 10/27/2024 9:16 AM CDT Oxygen Saturation 95% 10/27/2024 9:16 AM CDT Inhaled Oxygen Concentration - - Weight 75.1 kg (165 lb 9.6 oz) 10/27/2024 9:16 A M CDT Height 175.3 cm (5' 9) 10/03/2024 9:39 AM CDT Body Mass Index 24.45 10/03/2024 9:39 AM CDT Plan of Treatment Health Maintenance Due Date Last Done Comments Zoster Vaccine (1 of 2) 10/16/1995 DTaP/Tdap/Td Vaccine (2 - Td or Tdap) 03/28/2019 03/28/2009 Covid-19 Vaccine (4 - 2024-2 6 season) 2024 01/09/2021, 05/05/2020, 04/07/2020 Influenza Vaccine (#1) 2024 , 01/07/2023, 01/06/2022, Additional history exists Well Visit 65+ 11/11/2024 11/12/2023, 0509/2022, 06/26/2021, Additional history exists Prostate Cancer Screening-PSA 07/06/2025, 07/16/2023, 07/03/2022, Additional history exists Depression Screening 08/04/2025 08/04/2024, 07/06/2024, 03/28/2024, Additional history exists Fall Risk Assessment 10/27/2025 10/27/2024, 10/03/2024, 08/22/2024, Additional history exists Pneumococcal vaccine 65+ Completed 11/19/2015, 01/23 Hepatitis C Screening Completed 05/01/2016 Colon Cancer Screening-CT Colonography Discontinued 09/17/2022, 09/16/2017, 03/24/2012, Additional history exists Colon Cancer Screening-Colonoscopy Discontinued 09/17/2022, 09/16/2017, 03/24/2012, Additional history exists Colon Cancer Screening-DNA Stool Discontinued 09/17/2022, 09/16/2017, 03/24/2012, Additional history exists Colon Cancer Screening-FIT Discontinued 09/17, 09/16/2017, 03/24/2012, Additional history exists Colon Cancer Screening-FOBT Discontinued 08/24, 09/16/2017, 03/24/2012, Additional history exists Colon Cancer Screening-Sigmoidoscopy Discontinued 09/17/2022, 09/16/2017, 03/24/2012, Additional history exists Colorectal Cancer Screening Discontinued Hepatitis B Screening Completed 11/12/2023 Medical Devices Implanted Type Area Ward Nurse Device Identifier Shelf Expiration Date Model / Serial / Lot Carol Vicky Powerport Mri Airguard 8fr 1 Lumen Attachable Catheter Latex Free [id number] - [id number] Implanted:Qty: 1 on 04/08/2024 by Sylvester Rosales MD at [facility] Left: Subclavian Carol [place] 05/23/2025 [id number] / / [id number] Procedures Procedure Name Priority Date/Time Associated Diagnosis Comments EGFR STAT 10/27/2024 9:05 AM CDT Mesothelioma (pleural) (HCC) DIFFERENTIAL AUTO Routine 10/27/2024 9:0 5 AM CDT Mesothelioma (pleural) (HCC) CBC WITH AUTO DIFFERENTIAL Routine 10/27/2024 9:05 AM CDT Mesothelioma (pleural) (HCC) COMPREHENSIVE METABOLIC PANEL STAT 10/27/2024 9:05 AM CDT Mesothelioma (pleural) (HCC) URINALYSIS, MICROSCOPIC ONLY STAT 10/24/2024 7:42 PM CDT URINALYSIS AND REFLEX TO MICROSCOPIC AND CULTURE STAT 10/24/2024 7:42 PM CDT EGFR STAT 10/24/2024 6:56 PM CDT DIFFERENTIAL AUTO STAT 10/24/2024 6:5 6 PM CDT MAGNESIUM Routine 10/24/2024 6:56 PM CDT COMPREHENSIVE METABOLIC PANEL STAT 10/24/2024 6:56 PM CDT CBC WITH AUTO DIFFERENTIAL STAT 10/24/2024 6:56 PM CDT INFLUENZA A/B, RSV, AND COVID-19 PCR STAT 10/24/2024 6:[address] HEAD WO CONTRAST ED 10/24/2024 6 :27 PM CDT XR CHEST 1 VIEW ED 10/24/2024 6:20 PM CDT ECG 12-LEAD Routine 10/24/2024 6:15 PM CDT T4, FREE Routine 10/03/2024 9:25 AM CDT Mesothelioma (pleural) (HCC) EGFR STAT 10/03/2024 9:25 AM CDT Mesothelioma (pleural) (HCC) DIFFERENTIAL AUTO Routine 10/03/2024 9:2 5 AM CDT Mesothelioma (pleural) (HCC) CBC WITH AUTO DIFFERENTIAL Routine 10/03/2024 9:25 AM CDT Mesothelioma (pleural) (HCC) COMPREHENSIVE METABOLIC PANEL STAT 10/03/2024 9:25 AM CDT Mesothelioma (pleural) (HCC) CORTISOL Routine 10/03/2024 9:25 AM CDT Mesothelioma (pleural) (HCC) THYROID FUNCTION CASCADE Routine 10/03/2024 9:25 AM CDT Mesothelioma (pleural) (HCC) CT CHEST W CONTRAST Schedule Routine, Read Routine (OP Routine) 09/26/2024 8:31 AM CDT Mesothelioma (pleural) (HCC) Mesothelioma, malignant (HCC) DIFFERENTIAL AUTO Routine 09/12/2024 8:3 0 AM CDT Mesothelioma (pleural) (HCC) CBC WITH AUTO DIFFERENTIAL Routine 09/12/2024 8:30 AM CDT Mesothelioma (pleural) (HCC) EGFR STAT 09/12/2024 8:20 AM CDT Mesothelioma (pleural) (HCC) COMPREHENSIVE METABOLIC PANEL STAT 09/12/2024 8:20 AM CDT Mesothelioma (pleural) (HCC) TROPONIN T HIGH-SENSITIVITY 4-HR Timed 08/31/2024 3:08 PM CDT XR CHEST PA LATERAL 2 VIEWS ED 08/31/2024 1:57 PM CDT EGFR STAT 08/31/2024 11:08 AM CDT DIFFERENTIAL AUTO STAT 08/31/2024 11: 08 AM CDT TROPONIN T HIGH-SENSITIVITY SERIES (BASELINE, 2HR, 4HR, 6HR) STAT 08/31/2024 11:08 AM CDT COMPREHENSIVE METABOLIC PANEL STAT 08/31/2024 11:08 AM CDT CBC WITH AUTO DIFFERENTIAL STAT 08/31/2024 11:08 AM CDT ECG 12-LEAD STAT 08/31/2024 11:02 AM CDT EGFR STAT 08/22/2024 9:00 AM CDT Mesothelioma (pleural) (HCC) DIFFERENTIAL AUTO Routine 08/22/2024 9:0 0 AM CDT Mesothelioma (pleural) (HCC) CBC WITH AUTO DIFFERENTIAL Routine 08/22/2024 9:00 AM CDT Mesothelioma (pleural) (HCC) COMPREHENSIVE METABOLIC PANEL STAT 08/22/2024 9:00 AM CDT Mesothelioma (pleural) (HCC) CORTISOL Routine 08/22/2024 9:00 AM CDT Mesothelioma (pleural) (HCC) THYROID FUNCTION CASCADE Routine 08/22/2024 9:00 AM CDT Mesothelioma (pleural) (HCC) HEMOGLOBIN A1C Routine 08/04/2024 11:47 AM CDT Pure hypercholesterolem ia IGT (impaired glucose tolerance) LIPID PANEL Routine 08/04/2024 11:47 AM CDT Pure hypercholesterolem ia IGT (impaired glucose tolerance) VITAMIN D 25 HYDROXY Routine 08/04/2024 11:47 AM CDT Vitamin D deficiency TEMPUS XT DNA AND RNA SOLID TUMOR Routine 08/01/2024 9:39 AM CDT Mesothelioma (pleural) (HCC) Cancer related pain Hypotension, unspecified hypotension type CORTISOL Routine 08/01/2024 8:15 AM CDT Mesothelioma (pleural) (HCC) Hypotension, unspecified hypotension type EGFR STAT 08/01/2024 8:15 AM CDT Mesothelioma (pleural) (HCC) DIFFERENTIAL AUTO Routine 08/01/2024 8:1 5 AM CDT Mesothelioma (pleural) (HCC) CBC WITH AUTO DIFFERENTIAL Routine 08/01/2024 8:15 AM CDT Mesothelioma (pleural) (HCC) COMPREHENSIVE METABOLIC PANEL STAT 08/01/2024 8:15 AM CDT Mesothelioma (pleural) (HCC) PSA SCREEN Routine 07/06/2024 12:07 PM CDT Nocturia COLONOSCOPY 09/17/2022 9:33 AM CDT HM HEPATITIS C SCREENING Routine 05/01/2016 from Last 3 Months or Most Recently Relevant to Health Maintenance Results * eGFR (10/27/2024 9:05 AM CDT) eGFR >90 >=60 mL/min/1. 73 m2 Comment: Interpretive Data Reference Interval Normal >/= 90 mL/min/1.73m2 Mildly decreased* 60 - 89 mL/min/1.73m2 Mildly to moderately decreased 45 - 59 mL/min/1.73m2 Moderately to severely decreased 30 - 44 mL/min/1.73m2 Severely decreased 15 - 29 mL/min/1.73m2 Kidney Failure < 15 mL/min/1.73m2 *Relative to young adult level Estimated glomerular filtration rate is determined by the 2020 CKD-EPI equation recommended by the National [employer] (A Unifying Approach to GFR Estimation: Recommendations of the NKF-ASK Task Force on Reassessing the Inclusion of Race in Diagnosing Kidney Disease, JASN 2020). The CKD-EPI equation should not be used for patients with unstable renal function and has not been validated in children and those over 70. Current interpretive data was last reviewed 2020. Testing performed by: [facility], [place], [address] Blood 10/27/2024 9:05 AM CDT 10/27/2024 9:22 AM CDT us Johnny Kohler MD LAB BLOOD ORDERABLES Ramya l Result GABBY CHAIREZ ([place]) 1 [facility] [place] [address] * (ABNORMAL) Differential, auto (10/27/2024 9:05 AM CDT) Neutrophil abs 5.27 1.50 - 6.50 K/cumm GABBY CHAIREZ ([place]) Comment:Testing performed by : [facility] [address], Medical Office [address], [place] [address] Imm gran abs 0.01 0.00 - 0.10 K/cumm GABBY CHAIREZ ([place]) Comment:Testing performed by : [facility] [address], Medical Office [facility] [address], [place] [address] Lymphocyte abs 1.49 0.80 - 3.30 K/cumm [facility] ([place]) Comment:Testing performed by : [facility] [address], Medical Office [address], [place] [address] Monocyte abs 0.52 0.20 - 0.80 K/cumm [facility] ([place]) Comment:Testing performed by : [facility] [address], Medical Office [address], [place] [address] Eosinophil abs 0.77(H) 0.00 - 0.50 K/cumm [facility] ([place]) Comment:Testing performed by : [facility] [address], Medical Office [address], [place] [address] Basophil abs 0.09 0.00 - 0.10 K/cumm [facility] ([place]) Comment:Testing performed by : [facility] [address], Medical Office [address], [place] [address] Neutrophil pct 64.7 % [facility] ([place]) Comment: Interpretive Data Percent cell count reference ranges are not reported, since discordance with absolute values may lead to misinterpretation of CBC data. Current Interpretive Data was last revised on 2022. Testing performed by: [facility] [address], Medical Office [facility] [address], [place] [address] Imm gran pct 0.1 % [facility] ([place]) Comment: Interpretive Data Percent cell count reference ranges are not reported, since discordance with absolute values may lead to misinterpretation of CBC data. Current Interpretive Data was last revised on 2022. Testing performed by: [facility] [address], Medical Office [facility] [address], [place] [address] Lymphocyte pct 18.3 % [facility] ([place]) Comment: Interpretive Data Percent cell count reference ranges are not reported, since discordance with absolute values may lead to misinterpretation of CBC data. Current Interpretive Data was last revised on 2022. Testing performed by: [facility] [address], Medical Office [address], [place] [address] Monocyte pct 6.4 % [facility] ([place]) Comment: Interpretive Data Percent cell count reference ranges are not reported, since discordance with absolute values may lead to misinterpretation of CBC data. Current Interpretive Data was last revised on 2022. Testing performed by: [facility] [address], Medical Office [facility] [address] [facility] [address], [place] [address] Eosinophil pct 9.4 % JOHANNY CHAIREZ ([place]) Comment: Interpretive Data Percent cell count reference ranges are not reported, since discordance with absolute values may lead to misinterpretation of CBC data. Current Interpretive Data was last revised on 2022. Testing performed by: [facility] [address], Medical Office [facility] B [facility] [address], [place] [address] Basophil pct 1.1 % GABBY CHAIREZ ([place]) Comment: Interpretive Data Percent cell count reference ranges are not reported, since discordance with absolute values may lead to misinterpretation of CBC data. Current Interpretive Data was last revised on 2022. Testing performed by: [facility] [address], Medical Office [facility] B [facility] [address], [place] [address] Blood 10/27/2024 9:05 AM CDT 10/27/2024 9:08 AM CDT Johnny Kohler MD LAB BLOOD ORDERABLES Ramya marcos Result GABBY CHAIREZ ([place]) 1 [facility] Department [place] [address] * (ABNORMAL) CBC with auto differential (10/27/2024 9:05 AM CDT) WBC 8.15 3.80 - 9.90 K/cumm GABBY CHAIREZ ([place]) Comment:Testing performed by : [facility] [address], Medical Office [facility] [address], [place] [address] Hgb 12.6(L) 13.0 - 17.5 g/dL GABBY CHAIREZ ([place]) Comment:Testing performed by : [facility] [address], Medical Office [facility] [address], [place] [address] Hct 38.9 38.9 - 50.3 % GABBY CHAIREZ ([place]) Comment:Testing performed by : [facility] [address], Medical Office [facility] [address], [place] [address] Plt 193 150 - 400 K/cumm [facility] ([place]) Comment:Testing performed by : [facility] [address], Medical Office [facility] [address], [place] [address] MPV 10.3 9.1 - 12.3 fL [facility] ([place]) Comment:Testing performed by : [facility] [address], Medical Office [facility] [address], [place] [address] RBC 4.53 4.30 - 5.80 M/cumm [facility] ([place]) Comment:Testing performed by : [facility] [address], Medical Office [facility] [address], [place] [address] MCV 85.9 81.3 - 96.4 fL [facility] ([place]) Comment:Testing performed by : [facility] [address], Medical Office [facility] B [facility] [address], [place] [address] MCH 27.8 27.1 - 33.3 pg [facility] ([place]) Comment:Testing performed by : [facility] [address], Medical Office [facility] [address], [place] [address] MCHC 32.4 32.3 - 35.7 g/dL [facility] ([place]) Comment:Testing performed by : [facility] [address], Medical Office [facility] [address], [place] [address] RDW CV 16.3(H) 11.1 - 14.9 % [facility] ([place]) Comment:Testing performed by : [facility] [address], Medical Office [facility] [address], [place] [address] RDW SD 52.4(H) 35.7 - 48.1 fL [facility] ([place]) Comment:Testing performed by : [facility] [address], Medical Office [facility] B [facility] [address], [place] [address] Blood 10/27/2024 9:05 AM CDT 10/27/2024 9:08 AM CDT us Johnny Kohler MD LAB BLOOD ORDERABLES Ramya marcos Result [facility] ([place]) 1 [facility] Department [place] [address] * (ABNORMAL) Comprehensive metabolic panel (10/27/2024 9:05 AM CDT) Sodium 138 135 - 145 mmol/L [facility] ([place]) Potassium, pl 4.1 3.3 - 4.9 mmol/L [facility] ([place]) Chloride 103 97 - 110 mmol/L [facility] ([place]) CO2 24 22 - 32 mmol/L [facility] ([place]) Anion gap 11 2 - 15 mmol/L [facility] ([place]) BUN 25 6 - 25 mg/dL [facility] ([place]) Creatinine 0.74(L) 0.80 - 1.30 mg/dL [facility] ([place]) Glucose 110 70 - 199 mg/dL [facility] ([place]) Comment: Interpretive Data Fasting glucose >/= 126 mg/dl is diagnostic for diabetes. Fasting is defined as no caloric intake for at least 8 hours. Fasting glucose between 100 mg/dl to 125 mg/dl is diagnostic of prediabetes. In a patient with classic symptoms of hyperglycemia or hyperglycemic crisis, a random glucose >/= 200 mg/dl is diagnostic for diabetes. In the absence of unequivocal hyperglycemia, results should be confirmed by repeat testing. The classification and Diagnosis of Diabetes Diabetes Care 2021; 46: S19-S40. Current interpretive data was last revised 2022. Calcium 9.8 8.5 - 10.3 mg/dL [facility] ([place]) Bilirubin, total 0.4 0.1 - 1.2 mg/dL [facility] ([place]) Protein, pl 7.4 6.5 - 8.5 g/dL [facility] ([place]) Albumin 3.9 3.5 - 5.0 g/dL [facility] ([place]) Alk phos 140(H) 40 - 130 Units/L [facility] ([place]) ALT 17 7 - 55 Units/L [facility] ([place]) AST 19 10 - 50 Units/L [facility] ([place]) Blood 10/27/2024 9:05 AM CDT 10/27/2024 9:22 AM CDT us Johnny Kohler MD LAB BLOOD ORDERABLES Ramya l Result GABBY CHAIREZ ([place]) 1 [facility] [place] [address] * (ABNORMAL) Urinalysis reflex to microscopic and culture Urine (10/24/2024 7:42 PM CDT) Color, ur Yellow Yellow Clarity, ur Clear Clear [facility] ([place]) Specific gravity, ur 1.021 1.003 - 1.030 [facility] ([place]) pH, urine 6.5 [facility] ([place]) Comment: Interpretive Data U rine pH is affected by diet, medications, systemic acid-base disturbances, and renal tubular function. pH may affect urinary stone formation. For example, urine pH below 6.0 may help reduce the tendency for calcium phosphate stones and pH greater than 6.0 may reduce the tendency for uric acid stone formation. Source: [facility] [employer] Current Interpretive Data was last revised on 2017 Protein, ur ql 1+(A) Negative [facility] ([place]) Glucose, ur ql Negative Negative [facility] ([place]) Ketones, ur Negative Negative [facility] ([place]) Bilirubin, ur Negative Negative [facility] ([place]) Blood, ur Negative Negative [facility] ([place]) Urobilinogen, ur <2.0 <2.0 mg/dL [facility] ([place]) Nitrite, ur Negative Negative [facility] ([place]) Leukocyte esterase, ur Negative Negative [facility] ([place]) UA reflex comment Reflex to microscopic UA will be performed. [facility] ([place]) Urine 10/24/2024 7:42 PM CDT 10/24/2024 7:45 PM CDT us [facility] LAB MICROBIOLOGY - GENERAL CRISTA GONZALEZ Final Result GABBY CHAIREZ ([place]) 1 [facility] [place] [address] * (ABNORMAL) Urinalysis, microscopic only (10/24/2024 7:42 PM CDT) WBC, ur 0-5 0 - 5 /HPF RBC, ur 0-2 0 - 2 /HPF [facility] ([place]) Mucous, ur Present(A) GABBY A ([place]) Hyaline casts, ur 1-5 0 - 10 /LPF [facility] ([place]) Culture Reflex Comment Reflex conditions for urine culture (WBC >10) not met. [facility] ([place]) Urine 10/24/2024 7:42 PM CDT 10/24/2024 7:45 PM CDT Brook [facility] LAB URINE ORDERABLES Final Resu lt [facility] ([place]) 1 [facility] [place] [address] * Influenza A/B, RSV, and COVID-19 PCR Nasopharyngeal (10/24/2024 6:56 PM CDT) COVID-19 RNA Negative Negative Influenza A RNA Negative Negative [facility] ([place]) Influenza B RNA Negative Negative [facility] ([place]) RSV RNA Negative Negative [facility] ([place]) Comment: Interpretive data: Testing performed by [facility]. This test is performed using the [employer] Xpert Xpress CoV-2/Flu/RSV plus assay. This is a multiplex, real- time reverse transcriptase PCR assay intended for the qualitative detection of nucleic acid from SARS-CoV-2, influenza A, influenza B, and respiratory syncytial virus. This assay has been cleared by the [place] Food and Drug administration. The performance characteristics have been verified by the [facility]. Results must be considered in the clinical context, and a negative result does not rule out infection. Interpretive Data last revised 2023 Nasopharyngeal 10/24/2024 6: 56 PM CDT 10/24/2024 7:08 PM CDT Narrative [facility] ([place]) - 10/24/2024 7:50 PM CDT Is the Patient experiencing symptoms consistent with COVID?->Yes [facility] LAB MICROBIOLOGY - GENERAL ORDE RABLES Final Result Performing Organization Address City/[facility]/ZIP Co de Phone Number GABBY CHAIREZ ([place]) 1 [facility] [place] [address] * eGFR (10/24/2024 6:56 PM CDT) eGFR >90 >=60 mL/min/1. 73 m2 Comment: Interpretive Data Reference Interval Normal >/= 90 mL/min/1.73m2 Mildly decreased* 60 - 89 mL/min/1.73m2 Mildly to moderately decreased 45 - 59 mL/min/1.73m2 Moderately to severely decreased 30 - 44 mL/min/1.73m2 Severely decreased 15 - 29 mL/min/1.73m2 Kidney Failure < 15 mL/min/1.73m2 *Relative to young adult level Estimated glomerular filtration rate is determined by the 2020 CKD-EPI equation recommended by the National Kidney [employer] (A Unifying Approach to GFR Estimation: Recommendations of the NKF-ASK Task Force on Reassessing the Inclusion of Race in Diagnosing Kidney Disease, JASN 2020). The CKD-EPI equation should not be used for patients with unstable renal function and has not been validated in children and those over 70. Current interpretive data was last reviewed 2020. Blood 10/24/2024 6:56 PM CDT 10/24/2024 7:08 PM CDT Brook [facility] LAB BLOOD ORDERABLES Final Resu lt GABBY CHAIREZ ([place]) 1 [facility] [place] [address] * (ABNORMAL) Differential, auto (10/24/2024 6:56 PM CDT) Neutrophil abs 4.98 1.50 - 6.50 K/cumm Imm gran abs 0.03 0.00 - 0.10 K/cumm GABBY MIHAELA ([place]) Lymphocyte abs 0.97 0.80 - 3.30 K/cumm [facility] ([place]) Monocyte abs 0.63 0.20 - 0.80 K/cumm [facility] ([place]) Eosinophil abs 1.23(H) 0.00 - 0.50 K/cumm [facility] ([place]) Basophil abs 0.05 0.00 - 0.10 K/cumm [facility] ([place]) Neutrophil pct 63.1 % [facility] ([place]) Comment: Interpretive Data Percent cell count reference ranges are not reported, since discordance with absolute values may lead to misinterpretation of CBC data. Current Interpretive Data was last revised on 2017. Imm gran pct 0.4 % [facility] ([place]) Comment: Interpretive Data Percent cell count reference ranges are not reported, since discordance with absolute values may lead to misinterpretation of CBC data. Current Interpretive Data was last revised on 2017. Lymphocyte pct 12.3 % [facility] ([place]) Comment: Interpretive Data Percent cell count reference ranges are not reported, since discordance with absolute values may lead to misinterpretation of CBC data. Current Interpretive Data was last revised on 2017. Monocyte pct 8.0 % [facility] ([place]) Comment: Interpretive Data Percent cell count reference ranges are not reported, since discordance with absolute values may lead to misinterpretation of CBC data. Current Interpretive Data was last revised on 2017. Eosinophil pct 15.6 % [facility] ([place]) Comment: Interpretive Data Percent cell count reference ranges are not reported, since discordance with absolute values may lead to misinterpretation of CBC data. Current Interpretive Data was last revised on 2017. Basophil pct 0.6 % [facility] ([place]) Comment: Interpretive Data Percent cell count reference ranges are not reported, since discordance with absolute values may lead to misinterpretation of CBC data. Current Interpretive Data was last revised on 2017. Blood 10/24/2024 6:56 PM CDT 10/24/2024 7:08 PM CDT Brook [facility]NEY LAB BLOOD ORDERABLES Final Resu lt [facility] ([place]) 1 [facility] [place] [address] * (ABNORMAL) CBC with auto differential (10/24/2024 6:56 PM CDT) WBC 7.89 3.80 - 9.90 K/cumm Hgb 11.4(L) 13.0 - 17.5 g/dL [facility] ([place]) Hct 35.3(L) 38.9 - 50.3 % [facility] ([place]) Plt 179 150 - 400 K/cumm [facility] ([place]) MPV 10.3 9.1 - 12.3 fL [facility] ([place]) RBC 4.05(L) 4.30 - 5.80 M/cumm [facility] ([place]) MCV 87.2 81.3 - 96.4 fL [facility] ([place]) MCH 28.1 27.1 - 33.3 pg [facility] ([place]) MCHC 32.3 32.3 - 35.7 g/dL [facility] ([place]) RDW CV 16.6(H) 11.1 - 14.9 % [facility] ([place]) RDW SD 52.4(H) 35.7 - 48.1 fL [facility] ([place]) NRBC abs 0.00 0.00 - 0.01 K/cumm [facility] ([place]) Blood 10/24/2024 6:56 PM CDT 10/24/2024 7:08 PM CDT us Brook [facility] LAB BLOOD ORDERABLES Final Resu lt GABBY CHAIREZ ([place]) 1 [facility] [employer] [place] [address] * Magnesium (10/24/2024 6:56 PM CDT) Magnesium 1.5 1.4 - 2.5 mg/dL [facility] ([place]) Blood 10/24/2024 6:56 PM CDT 10/24/2024 7:08 PM CDT us Brook [facility] LAB BLOOD ORDERABLES Final Resu lt [facility] ([place]) 1 [facility] [place] [address] * (ABNORMAL) Comprehensive metabolic panel (10/24/2024 6:56 PM CDT) Sodium 140 135 - 145 mmol/L [facility] ([place]) Potassium, pl 4.0 3.3 - 4.9 mmol/L [facility] ([place]) Chloride 101 97 - 110 mmol/L [facility] ([place]) CO2 26 22 - 32 mmol/L [facility] ([place]) Anion gap 13 2 - 15 mmol/L [facility] ([place]) BUN 21 6 - 25 mg/dL [facility] ([place]) Creatinine 0.70(L) 0.80 - 1.30 mg/dL [facility] ([place]) Glucose 104 70 - 199 mg/dL [facility] ([place]) Comment: Interpretive Data Fasting glucose >/= 126 mg/dl is diagnostic for diabetes. Fasting is defined as no caloric intake for at least 8 hours. Fasting glucose between 100 mg/dl to 125 mg/dl is diagnostic of prediabetes. In a patient with classic symptoms of hyperglycemia or hyperglycemic crisis, a random glucose >/= 200 mg/dl is diagnostic for diabetes. In the absence of unequivocal hyperglycemia, results should be confirmed by repeat testing. The classification and Diagnosis of Diabetes Diabetes Care 2021; 46: S19-S40. Current interpretive data was last revised 2022. Calcium 9.4 8.5 - 10.3 mg/dL [facility] ([place]) Bilirubin, total 0.3 0.1 - 1.2 mg/dL [facility] ([place]) Protein, pl 6.6 6.5 - 8.5 g/dL [facility] ([place]) Albumin 3.6 3.5 - 5.0 g/dL [facility] ([place]) Alk phos 128 40 - 130 Units/L [facility] ([place]) ALT 14 7 - 55 Units/L [facility] ([place]) AST 15 10 - 50 Units/L GABBY CHAIREZ ([place]) Blood 10/24/2024 6:56 PM CDT 10/24/2024 7:08 PM CDT Brook Eduardo MCCARTNEY LAB BLOOD ORDERABLES Final Resu lt GABBY CHAIREZ ([place]) 1 [facility] [place] [address] * CT Head WO Contrast (10/24/2024 6:27 PM CDT) Anatomical Region Laterality Modality Head and Neck N/A Computed Tomogra phy 10/24/2024 6:33 PM CDT Narrative 10/24/2024 6:40 PM CDT EXAM DESCRIPTION: CT HEAD WO CONTRAST REASON FOR STUDY: Memory loss feeling forgetful x 2 days. Pt states he woke up yesterday and felt like he was forgetting more. Pt denies pain or other problems. Pt is ax 4 TECHNIQUE: Axial images acquired through the brain without intravenous contrast. Images stored on PACS. Automated exposure control was used as a dose optimization technique for this examination. COMPARISON: None available FINDINGS: BRAIN: No hemorrhage, edema or mass effect. Periventricular white matter hypoattenuation is nonspecific but compatible with chronic microvascular ischemia in a patient of this age. There is mild cerebral volume loss and mild corresponding ex vacuo lateral and 3rd ventriculomegaly. No gross CT evidence for recent infarct. If there is clinical concern for acute ischemia, an MRI can be performed. No suspicious vascular hyperdensity is seen.. There are intracranial athero sclerotic calcifications. EXTRA-AXIAL SPACES: No fluid collections. No masses. CALVARIUM: No fracture. SINUSES/MASTOIDS: No fluid or mucosal thickening. 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 ORBITS: No significant abnormality. OTHER: No other significant abnormality. IMPRESSION: No acute intracranial findings. THIS IS AN ELECTRONICALLY VERIFIED FINAL REPORT 10/24/2024 6:40 PM - Electronically signed by Guillaume Michaud M.D. MZ: KWAN Report ID: [id number] Reading Location: [id number] Procedure Note Guillaume Michaud MD - 10/24/2024 EXAM DESCRIPTION: CT HEAD WO CONTRAST REASON FOR STUDY: Memory loss feeling forgetful x 2 days. Pt states he woke up yesterday and felt likehe was forgetting more. Pt denies pain or other problems. Pt is ax 4 TECHNIQUE: Axial images acquired through the brain without intravenous contrast. Images stored on PACS. Automated exposure control was used asa dose optimization technique for this examination. COMPARISON: None available FINDINGS: BRAIN: No hemorrhage, edema or mass effect. Periventricular whitematter hypoattenuation is nonspecific but compatible with chronic microvascular ischemia in a patient of this age. There is mild cerebral volume loss and mild corresponding ex vacuo lateral and 3rd ventriculomegaly. No gross CT evidence for recent infarct. If there is clinical concern for acuteischemia, an MRI can be performed. No suspicious vascular hyperdensity is seen..There are intracranial athero sclerotic calcifications. EXTRA-AXIAL SPACES: No fluid collections. No masses. CALVARIUM: No fracture. SINUSES/MASTOIDS: No fluid or mucosal thickening. Probable smallosteoma in the right frontal sinus. ORBITS: No significant abnormality. OTHER: No other significant abnormality. IMPRESSION: No acute intracranial findings. THIS IS AN ELECTRONICALLY VERIFIED FINAL REPORT 10/24/2024 6:40 PM - Electronically signed by Guillaume Michaud M.D. MZ: KWAN Report ID: [id number] Reading Location: [id number] [facility] MAIN CT PROCEDURES Final Result * XR Chest 1 Vw Portable (10/24/2024 6:20 PM CDT) Anatomical Region Laterality Modality Body, Chest N/A Computed Radiogr aphy 10/24/2024 6:29 PM CDT Narrative 10/24/2024 6:33 PM CDT EXAM DESCRIPTION: XR CHEST 1 VIEW REASON FOR STUDY: general weakness Pt arrives to ED via POV for feeling forgetful x 2 days. Pt states he woke up yesterday and felt like he was forgetting more. Pt denies pain or other problems. TECHNIQUE: 1 radiographic view(s) of the chest. COMPARISON: 08/31/2024. 05/02/2024. FINDINGS: LUNGS: Right basilar opacities are similar to 08/31/2024 and favored to be atelectasis. Correlate clinically to exclude pneumonia. There is a small right pleural effusion. Minimal left base atelectasis. No pneumothorax is seen. There are areas of calcified pleural plaquing HEART/MEDIASTINUM: Heart size and cardiomediastinal contours are unchanged. Aortic atherosclerosis is present. LINES/TUBES: Left subclavian approach port catheter projects in the superior vena cava. BONES: No acute displaced fracture or aggressive bone lesion is seen The visualized upper abdomen is grossly unremarkable. IMPRESSION: 1. Right basilar opacities are similar to 08/31/2024 and favored to be atelectasis. Correlate clinically to exclude pneumonia. 2. Small right pleural effusion. THIS IS AN ELECTRONICALLY VERIFIED FINAL REPORT 10/24/2024 6:33 PM - Electronically signed by Guillaume Michaud M.D. MZ: MZ Report ID: [id number] Reading Location: [id number] Procedure Note Guillaume Michaud MD - 10/24/2024 EXAM DESCRIPTION: XR CHEST 1 VIEW REASON FOR STUDY: general weakness Pt arrives to ED via POV for feeling forgetful x 2 days. Pt states he wokeup yesterday and felt like he was forgetting more. Pt denies pain or other problems. TECHNIQUE: 1 radiographic view(s) of the chest. COMPARISON: 08/31/2024. 05/02/2024. FINDINGS: LUNGS: Right basilar opacities are similar to 08/31/2024 and favored jignesh atelectasis. Correlate clinically to exclude pneumonia. There is a small right pleural effusion. Minimal left base atelectasis. No pneumothoraxis seen. There are areas of calcified pleural plaquing HEART/MEDIASTINUM: Heart size and cardiomediastinal contours areunchanged. Aortic atherosclerosis is present. LINES/TUBES: Left subclavian approach port catheter projects in thesuperior vena cava. BONES: No acute displaced fracture or aggressive bone lesion is seen The visualized upper abdomen is grossly unremarkable. IMPRESSION: 1. Right basilar opacities are similar to 08/31/2024 and favored to be atelectasis. Correlate clinically to exclude pneumonia. 2. Small right pleural effusion. THIS IS AN ELECTRONICALLY VERIFIED FINAL REPORT 10/24/2024 6:33 PM - Electronically signed by Guillaume Michaud M.D. MZ: KWAN Report ID: [id number] Reading Location: [place] [address] [facility] IMG XR PROCEDURES Final Result * ECG 12 lead (10/24/2024 6:15 PM CDT) 10/24/2024 6:15 PM CDT Narrative [facility] - 10/25/2024 8:24 AM CDT Vent Rate: 71 bpm RR Interval: 843 msec CA Interval: 152 msec QRS Duration: 85 msec QT Interval: 362 msec QTC Interval: 384 msec P-R-T Emerson: 40 - 17 - 70 degrees IMPRESSION: SINUS RHYTHM NONSPECIFIC T-WAVE ABNORMALITY BORDERLINE ECG No change compared to prior EKG Electronically Signed By: Jerry Bentley MD [facility] Brook MCCARTNEY ECG ORDERABLES Final Result [facility] * eGFR (10/03/2024 9:25 AM CDT) eGFR >90 >=60 mL/min/1. 73 m2 Comment: Interpretive Data Reference Interval Normal >/= 90 mL/min/1.73m2 Mildly decreased* 60 - 89 mL/min/1.73m2 Mildly to moderately decreased 45 - 59 mL/min/1.73m2 Moderately to severely decreased 30 - 44 mL/min/1.73m2 Severely decreased 15 - 29 mL/min/1.73m2 Kidney Failure < 15 mL/min/1.73m2 *Relative to young adult level Estimated glomerular filtration rate is determined by the 2020 CKD-EPI equation recommended by the National Kidney Foundation (A Unifying Approach to GFR Estimation: Recommendations of the NKF-ASK Task Force on Reassessing the Inclusion of Race in Diagnosing Kidney Disease, JASN 2020). The CKD-EPI equation should not be used for patients with unstable renal function and has not been validated in children and those over 70. Current interpretive data was last reviewed 2020. Testing performed by: [facility], [facility], [place], [address] Blood 10/03/2024 9:25 AM CDT 10/03/2024 9:39 AM CDT us Johnny Kohler MD LAB BLOOD ORDERABLES Ramya marcos Result GABBY CHAIREZ ([place]) 1 [facility] [place] [address] * (ABNORMAL) Differential, auto (10/03/2024 9:25 AM CDT) Neutrophil abs 4.77 1.50 - 6.50 K/cumm [facility] ([place]) Comment:Testing performed by : [facility] [address], Medical Office [facility] [address], [place] [address] Imm gran abs 0.01 0.00 - 0.10 K/cumm [facility] ([place]) Comment:Testing performed by : [facility] [address], Medical Office [facility] [address], [place] [address] Lymphocyte abs 1.19 0.80 - 3.30 K/cumm [facility] ([place]) Comment:Testing performed by : [facility] [address], Medical Office [facility] [address], [place] [address] Monocyte abs 0.53 0.20 - 0.80 K/cumm [facility] ([place]) Comment:Testing performed by : [facility] [address], Medical Office [facility] [address], [place] [address] Eosinophil abs 1.00(H) 0.00 - 0.50 K/cumm [facility] ([place]) Comment:Testing performed by : [facility] [address], Medical Office [address], [place] [address] Basophil abs 0.08 0.00 - 0.10 K/cumm [facility] ([place]) Comment:Testing performed by : [facility] [address], Medical Office [address], [place] [address] Neutrophil pct 62.9 % [facility] ([place]) Comment: Interpretive Data Percent cell count reference ranges are not reported, since discordance with absolute values may lead to misinterpretation of CBC data. Current Interpretive Data was last revised on 2022. Testing performed by: [facility] [address], Medical Office [facility] [address], [place] [address] Imm gran pct 0.1 % [facility] ([place]) Comment: Interpretive Data Percent cell count reference ranges are not reported, since discordance with absolute values may lead to misinterpretation of CBC data. Current Interpretive Data was last revised on 2022. Testing performed by: [facility] [address], Medical Office [facility] [address], [place] [address] Lymphocyte pct 15.7 % [facility] ([place]) Comment: Interpretive Data Percent cell count reference ranges are not reported, since discordance with absolute values may lead to misinterpretation of CBC data. Current Interpretive Data was last revised on 2022. Testing performed by: [facility] [address], Medical Office [facility] [address], [place] [address] Monocyte pct 7.0 % [facility] ([place]) Comment: Interpretive Data Percent cell count reference ranges are not reported, since discordance with absolute values may lead to misinterpretation of CBC data. Current Interpretive Data was last revised on 2022. Testing performed by: [facility] [address], Medical Office [address], [place] [address] Eosinophil pct 13.2 % [facility] ([place]) Comment: Interpretive Data Percent cell count reference ranges are not reported, since discordance with absolute values may lead to misinterpretation of CBC data. Current Interpretive Data was last revised on 2022. Testing performed by: [facility] [address], Medical Office [facility] [address], [place] [address] Basophil pct 1.1 % [facility] CHAIRE[facility] ([place]) Comment: Interpretive Data Percent cell count reference ranges are not reported, since discordance with absolute values may lead to misinterpretation of CBC data. Current Interpretive Data was last revised on 2022. Testing performed by: [facility] [address], Medical Office [facility] [address], [place] [address] Blood 10/03/2024 9:25 AM CDT 10/03/2024 9:29 AM CDT us Johnny Kohler MD LAB BLOOD ORDERABLES Ramya l Result [facility]BY CHAIRE[facility] ([place]) 1 [facility] [place] [address] * (ABNORMAL) Thyroid Function [place] (10/03/2024 9:25 AM CDT) TSH 4.93(H) 0.30 - 4.20 mcIUnit/mL [facility]AI[facility] ([place]) Blood 10/03/2024 9:25 AM CDT 10/03/2024 9:39 AM CDT us Johnny Kohler MD LAB BLOOD ORDERABLES Ramya l Result GABBY CHAIREZ ([place]) 1 [facility] Department [place] [address] * (ABNORMAL) CBC with auto differential (10/03/2024 9:25 AM CDT) WBC 7.58 3.80 - 9.90 K/cumm [facility]AI[facility] ([place]) Comment:Testing performed by : [facility] [address], Medical Office [facility] [address], [place] [address] Hgb 11.7(L) 13.0 - 17.5 g/dL [facility]BY CHAIRE[facility] ([place]) Comment:Testing performed by : [facility] [address], Medical Office [facility] [address], [place] [address] Hct 37.6(L) 38.9 - 50.3 % [facility] ([place]) Comment:Testing performed by : [facility] [address], Medical Office [facility] [address], [place] [address] Plt 250 150 - 400 K/cumm [facility] ([place]) Comment:Testing performed by : [facility] [address], Medical Office [facility] [address], [place] [address] MPV 9.7 9.1 - 12.3 fL [facility] ([place]) Comment:Testing performed by : [facility] [address], Medical Office [facility] [address], [place] [address] RBC 4.30 4.30 - 5.80 M/cumm [facility] ([place]) Comment:Testing performed by : [facility] [address], Medical Office [facility] [address], [place] [address] MCV 87.4 81.3 - 96.4 fL [facility] ([place]) Comment:Testing performed by : [facility] [address], Medical Office [facility] [address], [place] [address] MCH 27.2 27.1 - 33.3 pg [facility] ([place]) Comment:Testing performed by : [facility] [address], Medical Office [facility] [address], [place] [address] MCHC 31.1(L) 32.3 - 35.7 g/dL [facility] ([place]) Comment:Testing performed by : [facility] [address], Medical Office [facility] [address], [place] [address] RDW CV 17.2(H) 11.1 - 14.9 % [facility] ([place]) Comment:Testing performed by : [facility] [address], Medical Office [facility] [address], [place] [address] RDW SD 55.6(H) 35.7 - 48.1 fL [facility] ([place]) Comment:Testing performed by : [facility] [address], Medical Office [facility] [address], [place] [address] Blood 10/03/2024 9:25 AM CDT 10/03/2024 9:29 AM CDT Johnny Kohler MD LAB BLOOD ORDERABLES Ramya l Result GABBY CHAIREZ ([place]) 1 [facility] [place] [address] * T4, free (10/03/2024 9:25 AM CDT) [facility] Free T4 0.92 0.90 - 1.70 ng/dL [facility] ([place]) Blood 10/03/2024 9:25 AM CDT 10/03/2024 9:39 AM CDT N[facility]ative [facility] - 10/03/2024 1:41 PM CDT This test was reflexed from a TSH result. Johnny Kohler MD LAB BLOOD ORDERABLES Edit ed Result - Final Performing Organization Address [facility] Co de Phone Number GABBY CHAIREZ ([place]) [address] [place] [address] * Cortisol (10/03/2024 9:25 AM CDT) [facility] Cortisol 11.8 4.8 - 19.5 mcg/dl Comment: Interpretive Data Normal Range: 4.8 - 19.5 mcg/dL; Evening: Half of morning value. This analyte undergoes marked diurnal variation. Ranges indicated apply to morning specimens. Current interpretive data was last revised 2018. Testing performed by: [facility], [address] [place] [address]., [id number] Blood 10/03/2024 9:25 AM CDT 10/03/2024 11:19 AM CDT Johnny Kohler MD LAB BLOOD ORDERABLES Ramya l Result GABBY Mancuso[place]) [address] [place] [address] * (ABNORMAL) Comprehensive metabolic panel (10/03/2024 9:25 AM CDT) Sodium 141 135 - 145 mmol/L [facility] ([place]) Potassium, pl 4.4 3.3 - 4.9 mmol/L [facility] ([place]) Chloride 103 97 - 110 mmol/L [facility] ([place]) CO2 27 22 - 32 mmol/L [facility] ([place]) Anion gap 11 2 - 15 mmol/L [facility] ([place]) BUN 18 6 - 25 mg/dL [facility] ([place]) Creatinine 0.75(L) 0.80 - 1.30 mg/dL [facility] ([place]) Glucose 102 70 - 199 mg/dL [facility] ([place]) Comment: Interpretive Data Fasting glucose >/= 126 mg/dl is diagnostic for diabetes. Fasting is defined as no caloric intake for at least 8 hours. Fasting glucose between 100 mg/dl to 125 mg/dl is diagnostic of prediabetes. In a patient with classic symptoms of hyperglycemia or hyperglycemic crisis, a random glucose >/= 200 mg/dl is diagnostic for diabetes. In the absence of unequivocal hyperglycemia, results should be confirmed by repeat testing. The classification and Diagnosis of Diabetes Diabetes Care 2021; 46: S19-S40. Current interpretive data was last revised 2022. Calcium 9.5 8.5 - 10.3 mg/dL [facility] ([place]) Bilirubin, total 0.2 0.1 - 1.2 mg/dL [facility] ([place]) Protein, pl 6.9 6.5 - 8.5 g/dL [facility] ([place]) Albumin 3.7 3.5 - 5.0 g/dL [facility] ([place]) Alk phos 114 40 - 130 Units/L [facility] ([place]) ALT 15 7 - 55 Units/L [facility] ([place]) AST 15 10 - 50 Units/L [facility] ([place]) Blood 10/03/2024 9:25 AM CDT 10/03/2024 9:39 AM CDT us Johnny Kohler MD LAB BLOOD ORDERABLES Ramya marocs Result [facility] ([place]) 1 [facility] [place] [address] * CT Chest W Contrast (09/26/2024 8:31 AM CDT) Anatomical Region Laterality Modality Body N/A Computed Tomogra phy 09/30/2024 6:43 AM CDT Narrative 09/30/2024 7:01 AM CDT EXAM DESCRIPTION: CT CHEST W CONTRAST REASON FOR STUDY: Mesothelioma, assess treatment response, Pt. With mesothelioma, increasing pleural thickening and fluid collections on the right with increasing mediastinal and right hilar adenopathy, assess treatment response, assess for progression Hx of mesothelioma and testicular cancer, and immunotherapy treatments. TECHNIQUE: CT scan of the chest performed with intravenous contrast using helical scanning technique with dynamic intravenous contrast injection. Reconstructed coronal and sagittal MPR images reviewed. All images stored on PACS. Automated exposure control was used as a dose optimization technique for this examination. CONTRAST TYPE/DOSE: 75mL of IOVERSOL 350 MG IODINE/ML INTRAVENOUS SYRINGE injected via intravenous COMPARISON: 07/19/2024 CT FINDINGS: LUNGS: Central airways are patent. Band like density right infrahilar regions similar to previous with the adjacent pleural thickening. PLEURA: Small posterior right-sided effusion with marked surrounding pleural thickening redemonstrated and generally unchanged. Thin linear calcification in the region. Pleural thickening extends to the lateral and anterolateral aspect of the lower chest pleural surfaces similar to slightly increased from previous. Additional extent along the medial upper lobe similar to slightly increased from previous. Lobular contours are slightly increased in prominence diffusely. Adjacent ribs demonstrate multifocal lucencies in the posteromedial 4th, 5th, 6th, 7th ribs. Posterolateral lucent defects 7th, 9th, 10th, 11th ribs. Subtle linear lucencies within these foci could indicate developing pathologic nondisplaced nonsegmental fractures. MEDIASTINUM/JOSEFINA: Nonenlarged to mildly prominent lymph nodes thoracic inlet, retrocaval pretracheal space, subcarinal space similar to previous. Anterior mediastinal lymph node with a transverse dimension of 1.2 cm increased in size from previous. Adjacent lymph nodes along the pericardiophrenic recess generally similar to previous. HEART: Heart size remains enlarged. Coronary arterial calcification identified VASCULATURE: No thoracic aortic aneurysm. AXILLA: No adenopathy. CHEST WALL: No masses. No subcutaneous air. HARDWARE/LINES/TUBES: Left anterior chest implanted Infusaport with catheter tip extending to the brachiocephalic vein above the SVC junction. Similar to previous. UPPER ABDOMEN: No significant abnormality. MUSCULOSKELETAL: T5 vertebra along its inferior endplate anteriorly demonstrates a lucent lesion measuring 1.1 cm new from previous. OTHER: No other significant abnormality. IMPRESSION: 1. Redemonstration of right-sided pleural thickening and small effusion with adjacent band like densities in the lung parenchyma similar to slightly increased from previous. 2. Pleural thickening and nodularity diffusely similar to moderately increased from previously. 3. Multiple lucent lesions in the right-sided ribs and T5 vertebra new from previous concerning for metastatic disease. 4. Anterior mediastinal lymph node with a transverse dimension of 1.2 cm increased in size from previous. 5. Left anterior chest implanted Infusaport with catheter tip extending to the brachiocephalic vein above the SVC junction. Similar to previous. THIS IS AN ELECTRONICALLY VERIFIED FINAL REPORT 09/30/2024 7:01 AM - Electronically signed by Johnny Ortiz M.D. RB: DOMINIQUE Report ID: [id number] Reading Location: [id number] Procedure Note Johnny Ortiz MD - 09/30/2024 EXAM DESCRIPTION: CT CHEST W CONTRAST REASON FOR STUDY: Mesothelioma, assess treatment response, Pt. With mesothelioma, increasing pleural thickening and fluid collections on theright with increasing mediastinal and right hilar adenopathy, assess treatment response, assess for progression Hx of mesothelioma and testicular cancer, and immunotherapy treatments. TECHNIQUE: CT scan of the chest performed with intravenous contrast using helical scanning technique with dynamic intravenous contrast injection. Reconstructed coronal and sagittal MPR images reviewed. All images storedon PACS. Automated exposure control was used as a dose optimizationtechnique for this examination. CONTRAST TYPE/DOSE: 75mL of IOVERSOL 350 MG IODINE/ML INTRAVENOUS SYRINGE injected via intravenous COMPARISON: 07/19/2024 CT FINDINGS: LUNGS: Central airways are patent. Band like density right infrahilar regions similar to previous with the adjacent pleural thickening. PLEURA: Small posterior right-sided effusion with marked surroundingpleural thickening redemonstrated and generally unchanged. Thin linearcalcification in the region. Pleural thickening extends to the lateral andanterolateral aspect of the lower chest pleural surfaces similar to slightly increasedfrom previous. Additional extent along the medial upper lobe similar toslightly increased from previous. Lobular contours are slightly increased in prominence diffusely. Adjacent ribs demonstrate multifocal lucencies in the posteromedial 4th,5th, 6th, 7th ribs. Posterolateral lucent defects 7th, 9th, 10th, 11th ribs. Subtle linear lucencies within these foci could indicate developingpathologic nondisplaced nonsegmental fractures. MEDIASTINUM/JOSEFINA: Nonenlarged to mildly prominent lymph nodes thoracic inlet, retrocaval pretracheal space, subcarinal space similar to previous. Anterior mediastinal lymph node with a transverse dimension of 1.2 cm increased in size from previous. Adjacent lymph nodes along the pericardiophrenic recess generally similar to previous. HEART: Heart size remains enlarged. Coronary arterial calcification identified VASCULATURE: No thoracic aortic aneurysm. AXILLA: No adenopathy. CHEST WALL: No masses. No subcutaneous air. HARDWARE/LINES/TUBES: Left anterior chest implanted Infusaport withcatheter tip extending to the brachiocephalic vein above the SVC junction. Similarto previous. UPPER ABDOMEN: No significant abnormality. MUSCULOSKELETAL: T5 vertebra along its inferior endplate anteriorly demonstrates a lucent lesion measuring 1.1 cm new from previous. OTHER: No other significant abnormality. IMPRESSION: 1. Redemonstration of right-sided pleural thickening and small effusionwith adjacent band like densities in the lung parenchyma similar to slightly increased from previous. 2. Pleural thickening and nodularity diffusely similar to moderately increased from previously. 3. Multiple lucent lesions in the right-sided ribs and T5 vertebra newfrom previous concerning for metastatic disease. 4. Anterior mediastinal lymph node with a transverse dimension of 1.2 cm increased in size from previous. 5. Left anterior chest implanted Infusaport with catheter tip extendingto the brachiocephalic vein above the SVC junction. Similar to previous. THIS IS AN ELECTRONICALLY VERIFIED FINAL REPORT 09/30/2024 7:01 AM - Electronically signed by Johnny Ortiz M.D. RB: DOMINIQUE Report ID: [id number] Reading Location: [id number] Johnny Kohler MD IMG CT PROCEDURES Final R esult * (ABNORMAL) Differential, auto (09/12/2024 8:30 AM CDT) Neutrophil abs 3.45 1.50 - 6.50 K/cumm [facility] ([place]) Comment:Testing performed by : [facility] [address], Medical Office [address], [place] [address] Imm gran abs 0.02 0.00 - 0.10 K/cumm [facility] ([place]) Comment:Testing performed by : [facility] [address], Medical Office [facility] [address], [place] [address] Lymphocyte abs 1.15 0.80 - 3.30 K/cumm [facility] ([place]) Comment:Testing performed by : [facility] [address], Medical Office [address], [place] [address] Monocyte abs 0.58 0.20 - 0.80 K/cumm [facility] ([place]) Comment:Testing performed by : [facility] [address], Medical Office [address], [place] [address] Eosinophil abs 0.80(H) 0.00 - 0.50 K/cumm [facility] ([place]) Comment:Testing performed by : [facility] [address], Medical Office [address], [place] [address] Basophil abs 0.06 0.00 - 0.10 K/cumm [facility] ([place]) Comment:Testing performed by : [facility] [address], Medical Office [address], [place] [address] Neutrophil pct 56.9 % [facility] ([place]) Comment: Interpretive Data Percent cell count reference ranges are not reported, since discordance with absolute values may lead to misinterpretation of CBC data. Current Interpretive Data was last revised on 2022. Testing performed by: [facility] [address], Medical Office [address], [place] [address] Imm gran pct 0.3 % [facility] ([place]) Comment: Interpretive Data Percent cell count reference ranges are not reported, since discordance with absolute values may lead to misinterpretation of CBC data. Current Interpretive Data was last revised on 2022. Testing performed by: [facility] [address], Medical Office [address], [place] [address] Lymphocyte pct 19.0 % [facility] ([place]) Comment: Interpretive Data Percent cell count reference ranges are not reported, since discordance with absolute values may lead to misinterpretation of CBC data. Current Interpretive Data was last revised on 2022. Testing performed by: [facility] [address], Medical Office [address], [place] [address] Monocyte pct 9.6 % [facility] ([place]) Comment: Interpretive Data Percent cell count reference ranges are not reported, since discordance with absolute values may lead to misinterpretation of CBC data. Current Interpretive Data was last revised on 2022. Testing performed by: [facility] [address], Medical Office [address], [place] [address] Eosinophil pct 13.2 % [facility] ([place]) Comment: Interpretive Data Percent cell count reference ranges are not reported, since discordance with absolute values may lead to misinterpretation of CBC data. Current Interpretive Data was last revised on 2022. Testing performed by: [facility] [address], Medical Office [address], [place] [address] Basophil pct 1.0 % [facility] ([place]) Comment: Interpretive Data Percent cell count reference ranges are not reported, since discordance with absolute values may lead to misinterpretation of CBC data. Current Interpretive Data was last revised on 2022. Testing performed by: [facility] [address], Medical Office [address], [place] [address] Blood 09/12/2024 8:30 AM CDT 09/12/2024 8:35 AM CDT us Johnny Kohler MD LAB BLOOD ORDERABLES Ramya marcos Result GABBY CHAIREZ ([place]) 1 [facility] [place] [address] * (ABNORMAL) CBC with auto differential (09/12/2024 8:30 AM CDT) WBC 6.06 3.80 - 9.90 K/cumm [facility] ([place]) Comment:Testing performed by : [facility] [address], Medical Office [address], [place] [address] Hgb 11.2(L) 13.0 - 17.5 g/dL [facility] ([place]) Comment:Testing performed by : [facility] [address], Medical Office [facility] [address], [place] [address] Hct 36.1(L) 38.9 - 50.3 % [facility] ([place]) Comment:Testing performed by : [facility] [address], Medical Office [facility] [address], [place] [address] Plt 226 150 - 400 K/cumm [facility] ([place]) Comment:Testing performed by : [facility] [address], Medical Office [facility] [address], [place] [address] MPV 9.6 9.1 - 12.3 fL [facility] ([place]) Comment:Testing performed by : [facility] [address], Medical Office [facility] [address], [place] [address] RBC 4.17(L) 4.30 - 5.80 M/cumm [facility] ([place]) Comment:Testing performed by : [facility] [address], Medical Office [facility] [address], [place] [address] MCV 86.6 81.3 - 96.4 fL [facility] ([place]) Comment:Testing performed by : [facility] [address], Medical Office [address], [place] [address] MCH 26.9(L) 27.1 - 33.3 pg [facility] ([place]) Comment:Testing performed by : [facility] [address], Medical Office [address], [place] [address] MCHC 31.0(L) 32.3 - 35.7 g/dL [facility] ([place]) Comment:Testing performed by : [facility] [address], Medical Office [address], [place] [address] RDW CV 17.0(H) 11.1 - 14.9 % G[facility]BY CHAIRE[facility] ([place]) Comment:Testing performed by : [facility] [facility] [address], Medical Office [address], [place] [address] RDW SD 54.7(H) 35.7 - 48.1 fL GABBY CHAIREZ ([place]) Comment:Testing performed by : [facility] [address], Medical Office [facility] [address], [place] [address] Blood 09/12/2024 8:30 AM CDT 09/12/2024 8:35 AM CDT Johnny Kohler MD LAB BLOOD ORDERABLES Ramya l Result GABBY CHAIREZ ([place]) 1 [facility] [place] [address] * eGFR (09/12/2024 8:20 AM CDT) eGFR >90 >=60 mL/min/1. 73 m2 Comment: Interpretive Data Reference Interval Normal >/= 90 mL/min/1.73m2 Mildly decreased* 60 - 89 mL/min/1.73m2 Mildly to moderately decreased 45 - 59 mL/min/1.73m2 Moderately to severely decreased 30 - 44 mL/min/1.73m2 Severely decreased 15 - 29 mL/min/1.73m2 Kidney Failure < 15 mL/min/1.73m2 *Relative to young adult level Estimated glomerular filtration rate is determined by the 2020 CKD-EPI equation recommended by the National Kidney Foundation (A Unifying Approach to GFR Estimation: Recommendations of the NKF-ASK Task Force on Reassessing the Inclusion of Race in Diagnosing Kidney Disease, JASN 2020). The CKD-EPI equation should not be used for patients with unstable renal function and has not been validated in children and those over 70. Current interpretive data was last reviewed 2020. Testing performed by: [facility], One [facility], [place], [address] Blood 09/12/2024 8:20 AM CDT 09/12/2024 8:44 AM CDT us Johnny Kohler MD LAB BLOOD ORDERABLES Ramya marcos Result [facility] ([place]) 1 [facility] [place] [address] * (ABNORMAL) Comprehensive metabolic panel (09/12/2024 8:20 AM CDT) Sodium 139 135 - 145 mmol/L [facility] ([place]) Potassium, pl 4.2 3.3 - 4.9 mmol/L [facility] ([place]) Chloride 103 97 - 110 mmol/L [facility] ([place]) CO2 28 22 - 32 mmol/L [facility] ([place]) Anion gap 8 2 - 15 mmol/L [facility] ([place]) BUN 19 6 - 25 mg/dL [facility] ([place]) Creatinine 0.67(L) 0.80 - 1.30 mg/dL [facility] ([place]) Glucose 104 70 - 199 mg/dL [facility] ([place]) Comment: Interpretive Data Fasting glucose >/= 126 mg/dl is diagnostic for diabetes. Fasting is defined as no caloric intake for at least 8 hours. Fasting glucose between 100 mg/dl to 125 mg/dl is diagnostic of prediabetes. In a patient with classic symptoms of hyperglycemia or hyperglycemic crisis, a random glucose >/= 200 mg/dl is diagnostic for diabetes. In the absence of unequivocal hyperglycemia, results should be confirmed by repeat testing. The classification and Diagnosis of Diabetes Diabetes Care 2021; 46: S19-S40. Current interpretive data was last revised 2022. Calcium 9.3 8.5 - 10.3 mg/dL [facility] ([place]) Bilirubin, total 0.2 0.1 - 1.2 mg/dL [facility] ([place]) Protein, pl 6.7 6.5 - 8.5 g/dL [facility] ([place]) Albumin 3.6 3.5 - 5.0 g/dL [facility] ([place]) Alk phos 124 40 - 130 Units/L [facility] ([place]) ALT 21 7 - 55 Units/L [facility] ([place]) AST 18 10 - 50 Units/L [facility] ([place]) Blood 09/12/2024 8:20 AM CDT 09/12/2024 8:44 AM CDT us Johnny Kohler MD LAB BLOOD ORDERABLES Ramya l Result Performing Organization Address [facility] Co de Phone Number [facility] ([place]) 1 [facility] [place] [address] * (ABNORMAL) Troponin T high-sensitivity 4-hour (08/31/2024 3:08 PM CDT) Trop T hs 29(H) <=22 ng/L Comment: Interpretive Data For further hscTnT resources including the diagnostic algorithm and an aid in interpretation, copy and paste this link: https://nrl.testcatalog.org/show/hsTrop Current Interpretive Data last revised 2020. Trop T hs delta -5 ng/L [facility] ([place]) Trop T hs interp Equivocal [facility] ([place]) Blood 08/31/2024 3:08 PM CDT 08/31/2024 3:13 PM CDT us Kaushal Jordan MD LAB BLOOD ORDERABLES Final R esult Performing Organization Address City/[facility] Co de Phone Number GABBY CHAIREZ ([place]) 1 [facility] [place] [address] * XR Chest Pa Lateral 2 Vw (08/31/2024 1:57 PM CDT) Anatomical Region Laterality Modality Body, Chest N/A Computed Radiogr aphy 08/31/2024 2:13 PM CDT Narrative 08/31/2024 2:17 PM CDT EXAM DESCRIPTION: XR CHEST PA LATERAL 2 VIEWS REASON FOR STUDY: Shortness of breath Pt arrives to ED via POV c/o low blood pressure. Pt states he took it at home and it wouldn't register. Pt states he has hx of low BP. Pt reports being lightheaded. TECHNIQUE: 1 radiographic view(s) of the chest. COMPARISON: Chest radiograph 05/02/2024 FINDINGS: LUNGS: A chronic appearing small right pleural effusion appears stable. No left effusion. No evidence of pneumothorax. Right basilar opacities, favoring atelectasis. HEART/MEDIASTINUM: Cardiac silhouette normal in size. Mediastinal and hilar contours appear normal. LINES/TUBES: A left-sided MediPort catheter is in stable position in the SVC. BONES: No acute osseous abnormality. IMPRESSION: Stable chronic small right pleural effusion. Right basilar opacities favoring atelectasis. THIS IS AN ELECTRONICALLY VERIFIED FINAL REPORT 08/31/2024 2:17 PM - Electronically signed by Willian Gutierrez M.D. KR: MELODY Report ID: [id number] Reading Location: [place] [address] Procedure Note Willian Gutierrez MD - 08/31/2024 EXAM DESCRIPTION: XR CHEST PA LATERAL 2 VIEWS REASON FOR STUDY: Shortness of breath Pt arrives to ED via POV c/o low blood pressure. Pt states he took it athome and it wouldn't register. Pt states he has hx of low BP. Pt reports being lightheaded. TECHNIQUE: 1 radiographic view(s) of the chest. COMPARISON: Chest radiograph 05/02/2024 FINDINGS: LUNGS: A chronic appearing small right pleural effusion appears stable.No left effusion. No evidence of pneumothorax. Right basilar opacities, favoring atelectasis. HEART/MEDIASTINUM: Cardiac silhouette normal in size. Mediastinal andhilar contours appear normal. LINES/TUBES: A left-sided MediPort catheter is in stable position in theSVC. BONES: No acute osseous abnormality. IMPRESSION: Stable chronic small right pleural effusion. Right basilar opacitiesfavoring atelectasis. THIS IS AN ELECTRONICALLY VERIFIED FINAL REPORT 08/31/2024 2:17 PM - Electronically signed by Willian Gutierrez M.D. KR: MELODY Report ID: [id number] Reading Location: [id number] us Fred MCCARTNEY IMG XR PROCEDURES Final Resu lt * (ABNORMAL) Troponin T high-sensitivity series (baseline, 2hr, 4hr, 6hr) (08/31/2024 11:08 AM CDT) Trop T hs 34(H) <=22 ng/L Comment: Interpretive Data For further hscTnT resources including the diagnostic algorithm and an aid in interpretation, copy and paste this link: https://nrl.testcatalog.org/show/hsTrop Current Interpretive Data last revised 2020. Blood 08/31/2024 11:0 8 AM CDT 08/31/2024 11:11 AM CDT Kaushal Jordan MD LAB BLOOD ORDERABLES Final R esult [facility] [place] [address] [place] [address] [place] [address] * eGFR (08/31/2024 11:08 AM CDT) eGFR >90 >=60 mL/min/1. 73 m2 Comment: Interpretive Data Reference Interval Normal >/= 90 mL/min/1.73m2 Mildly decreased* 60 - 89 mL/min/1.73m2 Mildly to moderately decreased 45 - 59 mL/min/1.73m2 Moderately to severely decreased 30 - 44 mL/min/1.73m2 Severely decreased 15 - 29 mL/min/1.73m2 Kidney Failure < 15 mL/min/1.73m2 *Relative to young adult level Estimated glomerular filtration rate is determined by the 2020 CKD-EPI equation recommended by the National Kidney Foundation (A Unifying Approach to GFR Estimation: Recommendations of the NKF-ASK Task Force on Reassessing the Inclusion of Race in Diagnosing Kidney Disease, JASN 202). The CKD-EPI equation should not be used for patients with unstable renal function and has not been validated in children and those over 70. Current interpretive data was last reviewed 2020. Blood 08/31/2024 11:0 8 AM CDT 08/31/2024 11:11 AM CDT us Kaushal Jordan MD LAB BLOOD ORDERABLES Final R esult [facility] ([place]) 1 [facility] Department [place] [address] * (ABNORMAL) Differential, auto (08/31/2024 11:08 AM CDT) Neutrophil abs 4.90 1.50 - 6.50 K/cumm Imm gran abs 0.02 0.00 - 0.10 K/cumm [facility] ([place]) Lymphocyte abs 1.01 0.80 - 3.30 K/cumm [facility] ([place]) Monocyte abs 0.51 0.20 - 0.80 K/cumm [facility] ([place]) Eosinophil abs 0.68(H) 0.00 - 0.50 K/cumm [facility] ([place]) Basophil abs 0.07 0.00 - 0.10 K/cumm [facility] ([place]) Neutrophil pct 68.1 % [facility] ([place]) Comment: Interpretive Data Percent cell count reference ranges are not reported, since discordance with absolute values may lead to misinterpretation of CBC data. Current Interpretive Data was last revised on 2017. Imm gran pct 0.3 % [facility] ([place]) Comment: Interpretive Data Percent cell count reference ranges are not reported, since discordance with absolute values may lead to misinterpretation of CBC data. Current Interpretive Data was last revised on 2017. Lymphocyte pct 14.0 % [facility] ([place]) Comment: Interpretive Data Percent cell count reference ranges are not reported, since discordance with absolute values may lead to misinterpretation of CBC data. Current Interpretive Data was last revised on 2017. Monocyte pct 7.1 % [facility] ([place]) Comment: Interpretive Data Percent cell count reference ranges are not reported, since discordance with absolute values may lead to misinterpretation of CBC data. Current Interpretive Data was last revised on 2017. Eosinophil pct 9.5 % [facility] ([place]) Comment: Interpretive Data Percent cell count reference ranges are not reported, since discordance with absolute values may lead to misinterpretation of CBC data. Current Interpretive Data was last revised on 2017. Basophil pct 1.0 % [facility] ([place]) Comment: Interpretive Data Percent cell count reference ranges are not reported, since discordance with absolute values may lead to misinterpretation of CBC data. Current Interpretive Data was last revised on 2017. Blood 08/31/2024 11:0 8 AM CDT 08/31/2024 11:11 AM CDT us Kaushal Jordan MD LAB BLOOD ORDERABLES Final R esult [facility] ([place]) 1 [facility] Department [place] [address] * (ABNORMAL) CBC with auto differential (08/31/2024 11:08 AM CDT) WBC 7.19 3.80 - 9.90 K/cumm Hgb 11.1(L) 13.0 - 17.5 g/dL [facility] ([place]) Hct 36.4(L) 38.9 - 50.3 % [facility] ([place]) Plt 270 150 - 400 K/cumm [facility] ([place]) MPV 9.2 9.1 - 12.3 fL [facility] ([place]) RBC 4.24(L) 4.30 - 5.80 M/cumm [facility] ([place]) MCV 85.8 81.3 - 96.4 fL [facility] ([place]) MCH 26.2(L) 27.1 - 33.3 pg [facility] ([place]) MCHC 30.5(L) 32.3 - 35.7 g/dL [facility] ([place]) RDW CV 17.2(H) 11.1 - 14.9 % [facility] ([place]) RDW SD 54.1(H) 35.7 - 48.1 fL [facility] ([place]) NRBC abs 0.00 0.00 - 0.01 K/cumm [facility] ([place]) Blood 08/31/2024 11:0 8 AM CDT 08/31/2024 11:11 AM CDT us Kaushal Jordan MD LAB BLOOD ORDERABLES Final R esult [facility] ([place]) 1 [facility] [place] [address] * (ABNORMAL) Comprehensive metabolic panel (08/31/2024 11:08 AM CDT) Sodium 139 135 - 145 mmol/L Potassium, pl 4.1 3.3 - 4.9 mmol/L [facility] ([place]) Chloride 102 97 - 110 mmol/L [facility] ([place]) CO2 25 22 - 32 mmol/L [facility] ([place]) Anion gap 12 2 - 15 mmol/L [facility] ([place]) BUN 15 6 - 25 mg/dL [facility] ([place]) Creatinine 0.76(L) 0.80 - 1.30 mg/dL [facility] ([place]) Glucose 133 70 - 199 mg/dL [facility] ([place]) Comment: Interpretive Data Fasting glucose >/= 126 mg/dl is diagnostic for diabetes. Fasting is defined as no caloric intake for at least 8 hours. Fasting glucose between 100 mg/dl to 125 mg/dl is diagnostic of prediabetes. In a patient with classic symptoms of hyperglycemia or hyperglycemic crisis, a random glucose >/= 200 mg/dl is diagnostic for diabetes. In the absence of unequivocal hyperglycemia, results should be confirmed by repeat testing. The classification and Diagnosis of Diabetes Diabetes Care 2021; 46: S19-S40. Current interpretive data was last revised 2022. Calcium 9.4 8.5 - 10.3 mg/dL [facility] ([place]) Bilirubin, total 0.3 0.1 - 1.2 mg/dL [facility] ([place]) Protein, pl 6.8 6.5 - 8.5 g/dL [facility] ([place]) Albumin 3.6 3.5 - 5.0 g/dL [facility] ([place]) Alk phos 124 40 - 130 Units/L [facility] ([place]) ALT 15 7 - 55 Units/L [facility] ([place]) AST 15 10 - 50 Units/L [facility] ([place]) Blood 08/31/2024 11:0 8 AM CDT 08/31/2024 11:11 AM CDT Kaushal Jordan MD LAB BLOOD ORDERABLES Final R esult Performing Organization Address City/[facility] Co de Phone Number [facility] ([place]) 1 [facility] [place] [address] * ECG 12 lead (08/31/2024 11:02 AM CDT) 08/31/2024 11:0 2 AM CDT Narrative [facility] - 08/31/2024 2:09 PM CDT Vent Rate: 93 bpm RR Interval: 641 msec CA Interval: 141 msec QRS Duration: 81 msec QT Interval: 326 msec QTC Interval: 377 msec P-R-T Emerson: 49 - 28 - 60 degrees IMPRESSION: SINUS RHYTHM POSSIBLE LEFT ATRIAL ENLARGEMENT [-0.1mV P-WAVE IN V1/V2] BORDERLINE ECG NO CHANGE FROM PREVIOUS TRACING NOTED Electronically Signed By: Mark Mccray MD Kaushal Jordan MD ECG ORDERABLES Final Result Performing Organization Address [facility] de Phone Number [facility] Conjur [facility] * eGFR (08/22/2024 9:00 AM CDT) eGFR >90 >=60 mL/min/1. 73 m2 Comment: Interpretive Data Reference Interval Normal >/= 90 mL/min/1.73m2 Mildly decreased* 60 - 89 mL/min/1.73m2 Mildly to moderately decreased 45 - 59 mL/min/1.73m2 Moderately to severely decreased 30 - 44 mL/min/1.73m2 Severely decreased 15 - 29 mL/min/1.73m2 Kidney Failure < 15 mL/min/1.73m2 *Relative to young adult level Estimated glomerular filtration rate is determined by the 2020 CKD-EPI equation recommended by the National Kidney Foundation (A Unifying Approach to GFR Estimation: Recommendations of the NKF-ASK Task Force on Reassessing the Inclusion of Race in Diagnosing Kidney Disease, JASN 2020). The CKD-EPI equation should not be used for patients with unstable renal function and has not been validated in children and those over 70. Current interpretive data was last reviewed 2020. Testing performed by: [facility], [facility], [place], [address] Blood 08/22/2024 9:00 AM CDT 08/22/2024 9:12 AM CDT us Johnny Kohler MD LAB BLOOD ORDERABLES Ramya marcos Result GABBY CHAIREZ ([place]) 1 [facility] Department [place] [address] * (ABNORMAL) Differential, auto (08/22/2024 9:00 AM CDT) Neutrophil abs 5.69 1.50 - 6.50 K/cumm [facility] ([place]) Comment:Testing performed by : [facility] [address], Medical Office [facility] [address], [place] [address] Imm gran abs 0.01 0.00 - 0.10 K/cumm [facility] ([place]) Comment:Testing performed by : [facility] [address], Medical Office [facility] [address], [place] [address] Lymphocyte abs 0.79(L) 0.80 - 3.30 K/cumm [facility] ([place]) Comment:Testing performed by : [facility] [address], Medical Office [facility] [address], [place] [address] Monocyte abs 0.64 0.20 - 0.80 K/cumm [facility] ([place]) Comment:Testing performed by : [facility] [address], Medical Office [facility] [address], [place] [address] Eosinophil abs 0.49 0.00 - 0.50 K/cumm [facility] ([place]) Comment:Testing performed by : [facility] [address], Medical Office [facility] [address], [place] [address] Basophil abs 0.06 0.00 - 0.10 K/cumm [facility] ([place]) Comment:Testing performed by : [facility] [address], Medical Office [facility] [address], [place] [address] Neutrophil pct 74.1 % [facility] ([place]) Comment: Interpretive Data Percent cell count reference ranges are not reported, since discordance with absolute values may lead to misinterpretation of CBC data. Current Interpretive Data was last revised on 2022. Testing performed by: [facility] [address], Medical Office [facility] [address], [place] [address] Imm gran pct 0.1 % [facility] ([place]) Comment: Interpretive Data Percent cell count reference ranges are not reported, since discordance with absolute values may lead to misinterpretation of CBC data. Current Interpretive Data was last revised on 2022. Testing performed by: [facility] [address], Medical Office [facility] B [facility] [address], [place] [address] Lymphocyte pct 10.3 % [facility] ([place]) Comment: Interpretive Data Percent cell count reference ranges are not reported, since discordance with absolute values may lead to misinterpretation of CBC data. Current Interpretive Data was last revised on 2022. Testing performed by: [facility] [address], Medical Office [facility] B [facility] [address], [place] [address] Monocyte pct 8.3 % [facility] ([place]) Comment: Interpretive Data Percent cell count reference ranges are not reported, since discordance with absolute values may lead to misinterpretation of CBC data. Current Interpretive Data was last revised on 2022. Testing performed by: [facility] [address], Medical Office [facility] [address], [place] [address] Eosinophil pct 6.4 % [facility] ([place]) Comment: Interpretive Data Percent cell count reference ranges are not reported, since discordance with absolute values may lead to misinterpretation of CBC data. Current Interpretive Data was last revised on 2022. Testing performed by: [facility] [address], Medical Office [facility] [address], [place] [address] Basophil pct 0.8 % GABBY CHAIREZ ([place]) Comment: Interpretive Data Percent cell count reference ranges are not reported, since discordance with absolute values may lead to misinterpretation of CBC data. Current Interpretive Data was last revised on 2022. Testing performed by: [facility] [address], Medical Office [facility] [address], [place] [address] Blood 08/22/2024 9:00 AM CDT 08/22/2024 9:01 AM CDT us Johnny Kohler MD LAB BLOOD ORDERABLES Ramya l Result GABBY CHAIREZ ([place]) 1 [facility] [place] [address] * Thyroid Function [place] (08/22/2024 9:00 AM CDT) TSH 2.64 0.30 - 4.20 mcIUnit/mL Comment:Testing performed by : [facility], [facility], [place], [address] Blood 08/22/2024 9:00 AM CDT 08/22/2024 9:12 AM CDT us Johnny Kohler MD LAB BLOOD ORDERABLES Ramya l Result GABBY CHAIREZ ([place]) 1 [facility] [place] [address] * (ABNORMAL) CBC with auto differential (08/22/2024 9:00 AM CDT) WBC 7.68 3.80 - 9.90 K/cumm GABBY CHAIREZ ([place]) Comment:Testing performed by : [facility] [address], Medical Office [facility] [address], [place] [address] Hgb 10.9(L) 13.0 - 17.5 g/dL GABBY CHAIREZ ([place]) Comment:Testing performed by : [facility] [address], Medical Office [address], [place] [address] Hct 34.9(L) 38.9 - 50.3 % [facility] ([place]) Comment:Testing performed by : [facility] [address], Medical Office [facility] [address], [place] [address] Plt 240 150 - 400 K/cumm [facility] ([place]) Comment:Testing performed by : [facility] [address], Medical Office [facility] [address], [place] [address] MPV 9.3 9.1 - 12.3 fL [facility] ([place]) Comment:Testing performed by : [facility] [address], Medical Office [facility] [address], [place] [address] RBC 4.08(L) 4.30 - 5.80 M/cumm [facility] ([place]) Comment:Testing performed by : [facility] [address], Medical Office [facility] [address], [place] [address] MCV 85.5 81.3 - 96.4 fL [facility] ([place]) Comment:Testing performed by : [facility] [address], Medical Office [facility] [address], [place] [address] MCH 26.7(L) 27.1 - 33.3 pg [facility] ([place]) Comment:Testing performed by : [facility] [address], Medical Office [facility] [address], [place] [address] MCHC 31.2(L) 32.3 - 35.7 g/dL [facility] ([place]) Comment:Testing performed by : [facility] [address], Medical Office [facility] [address], [place] [address] RDW CV 17.1(H) 11.1 - 14.9 % [facility] ([place]) Comment:Testing performed by : [facility] [address], Medical Office [facility] [address], [place] [address] RDW SD 54.2(H) 35.7 - 48.1 fL [facility] ([place]) Comment:Testing performed by : [facility] [address], Medical Office [facility] [address], [place] [address] Blood 08/22/2024 9:00 AM CDT 08/22/2024 9:01 AM CDT us Johnny Kohler MD LAB BLOOD ORDERABLES Ramya l Result Performing Organization Address [facility] Co de Phone Number GABBY CHAIRE[facility] ([place]) 1 [facility] [place] [address] * Cortisol (08/22/2024 9:00 AM CDT) Cortisol 10.5 4.8 - 19.5 mcg/dl Comment: Interpretive Data Normal Range: 4.8 - 19.5 mcg/dL; Evening: Half of morning value. This analyte undergoes marked diurnal variation. Ranges indicated apply to morning specimens. Current interpretive data was last revised 2018. Testing performed by: [facility], [address] [place] [address]., [address] Blood 08/22/2024 9:00 AM CDT 08/22/2024 5:13 PM CDT us Johnny Kohler MD LAB BLOOD ORDERABLES Ramya l Result Performing Organization Address [facility] Co de Phone Number GABBY CHAIRE[facility] ([place]) 1 [facility] [place] [address] * (ABNORMAL) Comprehensive metabolic panel (08/22/2024 9:00 AM CDT) Sodium 135 135 - 145 mmol/L Comment:Testing performed by : [place], [address] Potassium, pl 4.3 3.3 - 4.9 mmol/L [facility] ([place]) Comment:Testing performed by : [place], [address] Chloride 101 97 - 110 mmol/L [facility] ([place]) Comment:Testing performed by : [place], [address] CO2 24 22 - 32 mmol/L [facility] ([place]) Comment:Testing performed by : [place], [address] Anion gap 11 2 - 15 mmol/L [facility] ([place]) Comment:Testing performed by : [facility], [facility], [place], [address] BUN 22 6 - 25 mg/dL [facility] ([place]) Comment:Testing performed by : [facility], [place], [address] Creatinine 0.79(L) 0.80 - 1.30 mg/dL [facility] ([place]) Comment:Testing performed by : [facility], [place], [address] Glucose 106 70 - 199 mg/dL [facility] ([place]) Comment: Interpretive Data Fasting glucose >/= 126 mg/dl is diagnostic for diabetes. Fasting is defined as no caloric intake for at least 8 hours. Fasting glucose between 100 mg/dl to 125 mg/dl is diagnostic of prediabetes. In a patient with classic symptoms of hyperglycemia or hyperglycemic crisis, a random glucose >/= 200 mg/dl is diagnostic for diabetes. In the absence of unequivocal hyperglycemia, results should be confirmed by repeat testing. The classification and Diagnosis of Diabetes Diabetes Care 2021; 46: S19-S40. Current interpretive data was last revised 2022. Testing performed by: [facility], [place], [address] Calcium 8.9 8.5 - 10.3 mg/dL [facility] ([place]) Comment:Testing performed by : [facility], [place], [address] Bilirubin, total 0.2 0.1 - 1.2 mg/dL [facility] ([place]) Comment:Testing performed by : [facility], [place], [address] Protein, pl 6.9 6.5 - 8.5 g/dL [facility] ([place]) Comment:Testing performed by : [facility], [place], [address] Albumin 3.3(L) 3.5 - 5.0 g/dL [facility] ([place]) Comment:Testing performed by : [facility], [place], [address] Alk phos 125 40 - 130 Units/L [facility] ([place]) Comment:Testing performed by : [facility], [place], [address] ALT 14 7 - 55 Units/L [facility] ([place]) Comment:Testing performed by : [facility], [place], [address] AST 13 10 - 50 Units/L [facility] ([place]) Comment:Testing performed by : [place], [address] Blood 08/22/2024 9:00 AM CDT 08/22/2024 9:12 AM CDT Johnny Kohler MD LAB BLOOD ORDERABLES Ramya l Result [facility]AI[facility] ([place]) 1 [facility] [place] [address] * (ABNORMAL) Vitamin D 25 hydroxy (08/04/2024 11:47 AM CDT) Vitamin D 25-OH 29(L) 30 - 80 ng/mL Blood 08/04/2024 11:4 7 AM CDT 08/04/2024 12:02 PM CDT Jostin MCCARTNEY LAB BLOOD ORDERABLES Fi nal Result Performing Organization Address [facility] Co de Phone Number [facility]BY CHAIREZ ([place]) [address] [place] [address] [place] [address] * (ABNORMAL) Hemoglobin A1c (08/04/2024 11:47 AM CDT) Hgb A1C 6.0(H) 4.0 - 5.6 % Estimated Average Glucose 126 mg/dL [facility] ([place]) Comment: The ADA recommends reporting an estimated Average Glucose (eAG) with all Hemoglobin A1c results using the equation derived from a study of 507 normal and diabetic adults. Minority populations were underrepresented and children were not included. (Diabetes Care 31:3576-9034, 2008). The eAG is not equivalent to a fasting glucose. Blood 08/04/2024 11:4 7 AM CDT 08/04/2024 12:02 PM CDT us Jostin MCCARTNEY LAB BLOOD ORDERABLES Fi nal Result [facility] ([place]) 1 [facility] [place] [address] * Lipid panel (08/04/2024 11:47 AM CDT) Cholesterol 146 30 - 199 mg/dL Comment: Interpretive Data Ages < or = 19 years Acceptable: <170 mg/dL Borderline high: 170-199 mg/dL High: >or= 200 mg/dL Ages > or = 20 years Desirable: <200 mg/dL Borderline high: 200-239 mg/dL High: >or= 240 mg/dL Literature References: 1. Expert Panel on Integrated Guidelines for Cardiovascular Health and Risk Reduction in Children and Adolescents. Pediatrics 2011;128:S213 2. NCEP Expert Panel. Circulation 2004;110:227 Current Interpretive Data was last revised on 2017. Triglycerides 105 <=149 mg/dL [facility]AI[facility] ([place]) Comment: Interpretive Data Ages < or = 9 years Acceptable: <75 mg/dL Borderline high: 75-99 mg/dL High: >or= 100 mg/dL Ages 10 to 20 years Acceptable: <90 mg/dL Borderline high: 90-129 mg/dL High: >or= 130 mg/dL Ages > or = 20 years Desirable: <150 mg/dL Borderline high: 150-199 mg/dL High: 200-499 mg/dL Very high: >or= 499 mg/dL Literature References: 1. Expert Panel on Integrated Guidelines for Cardiovascular Health and Risk Reduction in Children and Adolescents. Pediatrics 2011;128:S213 2. NCEP Expert Panel. Circulation 2004;110:227 Current Interpretive Data was last revised on 2017. HDL 40 >=40 mg/dL [facility]BY [facility] ([place]) Comment: Interpretive Data Ages < or = 19 years Acceptable: >45 mg/dL Borderline low: 40-45 mg/dL Low: <40 mg/dL Ages > or = 20 years Desirable: >or= 60 mg/dL Low: <40 mg/dL Literature References: 1. Expert Panel on Integrated Guidelines for Cardiovascular Health and Risk Reduction in Children and Adolescents. Pediatrics 2011;128:S213 2. NCEP Expert Panel. Circulation 2004;110:227 Current Interpretive Data was last revised on 2017. LDL, calculated 87 <=129 mg/dL [facility]AI[facility] ([place]) Comment: Interpretive Data Ages < or = 19 years Acceptable: <110 mg/dL Borderline high: 110-129 mg/dL High: >or= 130 mg/dL Ages > or = 20 years Optimal: <100 mg/dL Near optimal: 100-129 mg/dL Borderline high: 130-159 mg/dL High: >160 mg/dL Calculated using the Brian LDL-C estimating equation. This equation was implemented on 2023. Prior to this date LDL-C was estimated using the Friedewald equation. Literature References: 1. Expert Panel on Integrated Guidelines for Cardiovascular Health and Risk Reduction in Children and Adolescents. Pediatrics 2011;128:S213 2. NCEP Expert Panel. Circulation 2004;110:227 3. Brian Pacheco et al. TRIPP Cardiol. 2020 June 23;5(5):540-548. doi: 10.1001/jamacardio.2020.0013 Current Interpretive Data was last revised on 2023. Non-HDL Cholesterol 106 mg/dL [facility] ([place]) Comment: Interpretive Data Ages < or = 19 years Acceptable: <120 mg/dL Borderline high: 120-144 mg/dL High: >145 mg/dL Ages > or = 20 years When triglycerides are >200 mg/dL, Non-HDL cholesterol is a secondary target of therapy with treatment goals that are 30 mg/dL greater than the LDL cholesterol target. Literature References: 1. Expert Panel on Integrated Guidelines for Cardiovascular Health and Risk Reduction in Children and Adolescents. Pediatrics 2011;128:S213 2. NCEP Expert Panel. Circulation 2004;110:227 Current Interpretive Data was last revised on 2017. Chol/HDL ratio 4 JOHANNY CHAIREZ ([place]) Blood 08/04/2024 11:4 7 AM CDT 08/04/2024 12:02 PM CDT us Jostin MCCARTNEY LAB BLOOD ORDERABLES Fi nal Result [facility]BY CHAIRE[facility] ([place]) 1 [facility] [place] [address] * Tempus xT DNA and RNA - Tumor Only (08/01/2024 9:39 AM CDT) Reason for Study To identify somatic and germline mutations relevant to patient's cancer. 08/18/2024 9:35 AM CDT [facility] Genetic Diseases Assessed Cancer 08/18/2024 9:35 AM CDT [facility] Description of Ranges of DNA Sequences Examined 648 gene panel 08/18/2024 9:35 AM CDT [facility] Overall Interpretation positive 08/18/2024 9:35 AM CDT [facility] MSI Stable 08/18/2024 9:35 AM CDT [facility] TMB 3.2 m/MB 08/18/2024 9:35 AM CDT [facility] Tempus Portal [email or web address] 08/18/2024 9:35 AM CDT [facility] Comment:[facility] Portal link PD-L1 (22C3) Combined Positive Score 30 08/18/2024 9:35 AM CDT [facility] PD-L1 (22C3) Tumor Proportion Score 30 % 08/18/2024 9:35 AM CDT [facility] Low Coverage Regions EPHB2, FLT3, KDM5D, PTPRT, RXRA, TGFBR1 08/18/2024 9:35 AM CDT [facility] Trial Count 3 08/18/2024 9:35 AM CDT [facility] Tempus: Clinical Trial Match 1 Clinical Trial NCT ID: [id number] Clinical Trial Title: A Study of AMG 193 in Participants With Advanced MTAP-null Solid Tumors (MTAPESTRY 101) Clinical Trial URL: [email or web address] [email or web address]/[email or web address] Clinical Phase: Phase 1/Phase 2 Clinical Trial Matches: CDKN2A deletion Clinical Trial Distance and Location: [address] [place] [address] 08/18/2024 9:35 AM CDT [facility] Tempus: Clinical Trial Match 2 Clinical Trial NCT ID: [id number] Clinical Trial Title: TAPUR: Testing the Use of Food and Drug Administration (FDA) Approved Drugs That Target a Specific Abnormality in a Tumor Gene in People With Advanced Stage Cancer Clinical Trial URL: [email or web address] [email or web address]/[email or web address] Clinical Phase: Phase 2 Clinical Trial Matches: CDKN2A deletion, CDKN2B deletion Clinical Trial Distance and Location: [address], [facility] [place] 08/18/2024 9:35 AM CDT [facility] Tempus: Clinical Trial Match 3 Clinical Trial NCT ID: [id number] Clinical Trial Title: A Phase I Study of YPU327 in Patients With Advanced Mesothelioma and Other Solid Tumors Clinical Trial URL: [email or web address] [email or web address].[email or web address]/[email or web address] Clinical Phase: Phase 1 Clinical Trial Matches: LATS1 p.K734* mutation Clinical Trial Distance and Location: [address], [place], [place] 08/18/2024 9:35 AM CDT [facility] xR Result 1 NEGATIVE Negative - This report is being issued to report the results of gene rearrangement and altered splicing analysis from RNA sequencing. No gene rearrangements nor reportable altered splicing events were identified from RNA sequencing. 08/18/2024 9:35 AM CDT [facility] Germline Variant Note No normal sample was received, therefore tumor/normal matched analysis was not performed. 08/18/2024 9:35 AM CDT [facility] Treatment Implications Note No reportable treatment options found. 08/18/2024 9:35 AM CDT [facility] HLA-A Typing A*02:01,A*02:01 9:35 AM CDT [facility] HLA-B Typing B*44:02,B*57:01 9:35 AM CDT [facility] HLA-C Typing C*05:01,C*06:02 9:35 AM CDT [facility] HLA-A Ambiguous Alleles Yes 08/18/2024 9:35 AM CDT [facility] HLA-B Ambiguous Alleles Yes 08/18/2024 9:35 AM CDT [facility] HLA-C Ambiguous Alleles Yes 08/18/2024 9:35 AM CDT [facility] HLA-A Sample Type Tumor Only 025 9:35 AM CDT [facility] HLA-B Sample Type Tumor Only 025 9:35 AM CDT [facility] HLA-C Sample Type Tumor Only 025 9:35 AM CDT [facility] Tissue specimen (specimen) 08/01/2024 9:39 AM CDT 08/06/2024 5:30 PM CDT Narrative This result has genomic variants that were not included in this document. us Johnny Kohler MD LAB GENETIC TESTING Edite d Result - Final [facility] [address] [facility], [address] [place] [address], [facility] [phone] [facility] [address] [address] * eGFR (08/01/2024 8:15 AM CDT) eGFR >90 >=60 mL/min/1. 73 m2 Comment: Interpretive Data Reference Interval Normal >/= 90 mL/min/1.73m2 Mildly decreased* 60 - 89 mL/min/1.73m2 Mildly to moderately decreased 45 - 59 mL/min/1.73m2 Moderately to severely decreased 30 - 44 mL/min/1.73m2 Severely decreased 15 - 29 mL/min/1.73m2 Kidney Failure < 15 mL/min/1.73m2 *Relative to young adult level Estimated glomerular filtration rate is determined by the 2020 CKD-EPI equation recommended by the National Kidney Foundation (A Unifying Approach to GFR Estimation: Recommendations of the NKF-ASK Task Force on Reassessing the Inclusion of Race in Diagnosing Kidney Disease, JASN 2020). The CKD-EPI equation should not be used for patients with unstable renal function and has not been validated in children and those over 70. Current interpretive data was last reviewed 2020. Testing performed by: [facility], [facility], [place], [address] Blood 08/01/2024 8:15 AM CDT 08/01/2024 8:25 AM CDT us Johnny Kohler MD LAB BLOOD ORDERABLES Ramya marcos Result [facility] ([place]) 1 [facility] [place] [address] * Differential, auto (08/01/2024 8:15 AM CDT) Neutrophil abs 4.67 1.50 - 6.50 K/cumm [facility] ([place]) Comment:Testing performed by : [facility] [address], Medical Office [facility] [address], [place] [address] Imm gran abs 0.01 0.00 - 0.10 K/cumm [facility] ([place]) Comment:Testing performed by : [facility] [address], Medical Office [facility] [address], [place] [address] Lymphocyte abs 1.23 0.80 - 3.30 K/cumm [facility] ([place]) Comment:Testing performed by : [facility] [address], Medical Office [facility] [address], [place] [address] Monocyte abs 0.57 0.20 - 0.80 K/cumm [facility] ([place]) Comment:Testing performed by : [facility] [address], Medical Office [facility] [address], [place] [address] Eosinophil abs 0.44 0.00 - 0.50 K/cumm [facility] ([place]) Comment:Testing performed by : [facility] [address], Medical Office [facility] [address], [place] [address] Basophil abs 0.07 0.00 - 0.10 K/cumm [facility] ([place]) Comment:Testing performed by : [facility] [address], Medical Office [facility] [address], [place] [address] Neutrophil pct 66.8 % [facility] ([place]) Comment: Interpretive Data Percent cell count reference ranges are not reported, since discordance with absolute values may lead to misinterpretation of CBC data. Current Interpretive Data was last revised on 2022. Testing performed by: [facility] [address], Medical Office [address], [place] [address] Imm gran pct 0.1 % [facility] ([place]) Comment: Interpretive Data Percent cell count reference ranges are not reported, since discordance with absolute values may lead to misinterpretation of CBC data. Current Interpretive Data was last revised on 2022. Testing performed by: [facility] [address], Medical Office [facility] [address], [place] [address] Lymphocyte pct 17.6 % [facility] ([place]) Comment: Interpretive Data Percent cell count reference ranges are not reported, since discordance with absolute values may lead to misinterpretation of CBC data. Current Interpretive Data was last revised on 2022. Testing performed by: [facility] [address], Medical Office [address], [place] [address] Monocyte pct 8.2 % [facility] ([place]) Comment: Interpretive Data Percent cell count reference ranges are not reported, since discordance with absolute values may lead to misinterpretation of CBC data. Current Interpretive Data was last revised on 2022. Testing performed by: [facility] [address], Medical Office [facility] [address], [place] [address] Eosinophil pct 6.3 % [facility] ([place]) Comment: Interpretive Data Percent cell count reference ranges are not reported, since discordance with absolute values may lead to misinterpretation of CBC data. Current Interpretive Data was last revised on 2022. Testing performed by: [facility] [address], Medical Office [facility] [address], [place] [address] Basophil pct 1.0 % [facility] ([place]) Comment: Interpretive Data Percent cell count reference ranges are not reported, since discordance with absolute values may lead to misinterpretation of CBC data. Current Interpretive Data was last revised on 2022. Testing performed by: [facility] [address], Medical Office [facility] [address], [place] [address] Blood 08/01/2024 8:15 AM CDT 08/01/2024 8:18 AM CDT us Johnny Kohler MD LAB BLOOD ORDERABLES Ramya hemant Result [facility]BY CHAIRE[facility] ([place]) 1 [facility] Department [place] [address] * (ABNORMAL) CBC with auto differential (08/01/2024 8:15 AM CDT) WBC 6.99 3.80 - 9.90 K/cumm [facility] ([place]) Comment:Testing performed by : [facility] [address], Medical Office [facility] [address], [place] [address] Hgb 10.5(L) 13.0 - 17.5 g/dL [facility] ([place]) Comment:Testing performed by : [facility] [address], Medical Office [facility] [address], [place] [address] Hct 34.0(L) 38.9 - 50.3 % [facility] ([place]) Comment:Testing performed by : [facility] [address], Medical Office [facility] [address], [place] [address] Plt 299 150 - 400 K/cumm [facility] ([place]) Comment:Testing performed by : [facility] [address], Medical Office [facility] [address], [place] [address] MPV 9.4 9.1 - 12.3 fL [facility] ([place]) Comment:Testing performed by : [facility] [address], Medical Office [facility] [address], [place] [address] RBC 4.03(L) 4.30 - 5.80 M/cumm [facility] ([place]) Comment:Testing performed by : [facility] [address], Medical Office [address], [place] [address] MCV 84.4 81.3 - 96.4 fL [facility] ([place]) Comment:Testing performed by : [facility] [address], Medical Office [address], [place] [address] MCH 26.1(L) 27.1 - 33.3 pg [facility] ([place]) Comment:Testing performed by : [facility] [address], Medical Office [facility] [address], [place] [address] MCHC 30.9(L) 32.3 - 35.7 g/dL [facility] ([place]) Comment:Testing performed by : [facility] [address], Medical Office [facility] [address], [place] [address] RDW CV 17.0(H) 11.1 - 14.9 % [facility] ([place]) Comment:Testing performed by : [facility] [address], Medical Office [facility] [address], [place] [address] RDW SD 52.4(H) 35.7 - 48.1 fL [facility] ([place]) Comment:Testing performed by : [facility] [address], Medical Office [facility] [address], [place] [address] Blood 08/01/2024 8:15 AM CDT 08/01/2024 8:18 AM CDT us Johnny Kohler MD LAB BLOOD ORDERABLES Ramya l Result [facility] ([place]) 1 [facility] [place] [address] * Cortisol (08/01/2024 8:15 AM CDT) Cortisol 15.1 4.8 - 19.5 mcg/dl Comment: Interpretive Data Normal Range: 4.8 - 19.5 mcg/dL; Evening: Half of morning value. This analyte undergoes marked diurnal variation. Ranges indicated apply to morning specimens. Current interpretive data was last revised 2018. Testing performed by: [facility], [address] [place] [address], [place]., [address] Blood 08/01/2024 8:15 AM CDT 08/01/2024 1:55 PM CDT us Johnny Kohler MD LAB BLOOD ORDERABLES Ramya l Result [facility] ([place]) 1 [facility] [place] [address] * (ABNORMAL) Comprehensive metabolic panel (08/01/2024 8:15 AM CDT) Sodium 140 135 - 145 mmol/L Comment:Testing performed by : [facility], [place], [address] Potassium, pl 4.3 3.3 - 4.9 mmol/L [facility] ([place]) Comment:Testing performed by : [facility], [place], [address] Chloride 104 97 - 110 mmol/L [facility] ([place]) Comment:Testing performed by : [facility], [facility], [place], [address] CO2 25 22 - 32 mmol/L [facility] ([place]) Comment:Testing performed by : [facility], [place], [address] Anion gap 11 2 - 15 mmol/L [facility] ([place]) Comment:Testing performed by : [facility], [place], [address] BUN 25 6 - 25 mg/dL [facility] ([place]) Comment:Testing performed by : [facility], [place], [address] Creatinine 0.77(L) 0.80 - 1.30 mg/dL [facility] ([place]) Comment:Testing performed by : [facility], [place], [address] Glucose 113 70 - 199 mg/dL [facility] ([place]) Comment: Interpretive Data Fasting glucose >/= 126 mg/dl is diagnostic for diabetes. Fasting is defined as no caloric intake for at least 8 hours. Fasting glucose between 100 mg/dl to 125 mg/dl is diagnostic of prediabetes. In a patient with classic symptoms of hyperglycemia or hyperglycemic crisis, a random glucose >/= 200 mg/dl is diagnostic for diabetes. In the absence of unequivocal hyperglycemia, results should be confirmed by repeat testing. The classification and Diagnosis of Diabetes Diabetes Care 2021; 46: S19-S40. Current interpretive data was last revised 2022. Testing performed by: [facility], [place], [address] Calcium 9.1 8.5 - 10.3 mg/dL [facility] ([place]) Comment:Testing performed by : [place], [address] Bilirubin, total 0.2 0.1 - 1.2 mg/dL [facility] ([place]) Comment:Testing performed by : [facility], [place], [address] Protein, pl 7.0 6.5 - 8.5 g/dL [facility] ([place]) Comment:Testing performed by : [facility], [place], [address] Albumin 3.5 3.5 - 5.0 g/dL [facility] ([place]) Comment:Testing performed by : [facility], [place], [address] Alk phos 120 40 - 130 Units/L [facility] ([place]) Comment:Testing performed by : [facility], [place], [address] ALT 15 7 - 55 Units/L [facility] ([place]) Comment:Testing performed by : [facility], [place], [address] AST 14 10 - 50 Units/L [facility] ([place]) Comment:Testing performed by : [facility], [place], [address] Blood 08/01/2024 8:15 AM CDT 08/01/2024 8:25 AM CDT us Johnny Kohler MD LAB BLOOD ORDERABLES Ramya l Result [facility] ([place]) 1 [facility] [place] [address] * PSA screen (07/06/2024 12:07 PM CDT) PSA-Total 0.07 <=6.20 ng/mL Comment: Interpretive Data AGE SEX REFERENCE INTERVAL 0 minutes-150 years Female None 0 minutes-49 years Male None 50-59 years Male 0-3.90 60-69 years Male 0-5.40 70-79 years Male 0-6.20 80-150 years Male 0-6.20 The Alvaro PSA Total assay procedure was used. Results from different manufacturers or methods may not be comparable. Serial testing should be performed using the same method. Current interpretive data last revised 21. Blood 07/06/2024 12:0 7 PM CDT 07/06/2024 5:50 PM CDT us Miguel Mello MD LAB BLOOD ORDERABLES Final Resul t G[facility] [id number] [facility] Department of Laboratories [place] [id number] * COLONOSCOPY (09/17/2022 9:33 AM CDT) Anatomical Region Laterality Modality Other Narrative Procedure Note Rafita Sanchez MD - 09/17/2022 9:33 AM CDT [facility] Patient Name: Rufino Mike Procedure Date: 09/17/2022 9:33 AM Date of : 1945 Admit Type: Outpatient Age: 76 Gender: Male Attending MD: Rafita Sanchez M.D. Room: [facility] ENDOSCOPY ROOM 1 Note Status: Finalized Patient Profile: This is a 76 year old male. History of polyps. No family history of colon cancer. Procedure: Colonoscopy Indications: High risk colon cancer surveillance: Personalhistory of colonic polyps, Last colonoscopy: August 2017 Referring MD: Jostin Gregory PA-C Providers: Rafita Sanchez M.D. Impression: - Large wart lesion in the Botox sacral area skin - One 3 mm polyp in the sigmoid colon, removed witha cold biopsy forceps. Resected and retrieved. - Diverticulosis in the sigmoid colon. - Internal hemorrhoids. Recommendation: - Await pathology results. - Repeat colonoscopy in 5 years for screeningpurposes. Medicines: Monitored Anesthesia Care Complications: No immediate complications. Estimated Blood Loss: Estimated blood loss: none. Procedure: Pre-Anesthesia Assessment: - Prior to the procedure, a History and Physicalwas performed, and patient medications and allergieswere reviewed. The patient's tolerance of previous anesthesia was also reviewed. The risks andbenefits of the procedure and the sedation options and risks were discussed with the patient. All questions were answered, and informed consent was obtained. Prior Anticoagulants: The patient has taken noanticoagulant or antiplatelet agents. ASA Grade Assessment: III -A patient with severe systemic disease. Afterreviewing the risks and benefits, the patient was deemed in satisfactory condition to undergo the procedure. - Prior to the procedure, a History and Physicalwas performed, and patient medications and allergieswere reviewed. The patient's tolerance of previous anesthesia was also reviewed. The risks andbenefits of the procedure and the sedation options and risks were discussed with the patient. All questions were answered, and informed consent was obtained. Prior Anticoagulants: The patient has taken noanticoagulant or antiplatelet agents. After reviewing the risksand benefits, the patient was deemed in satisfactory condition to undergo the procedure. The benefits, risks and alternatives of theprocedure and sedation were discussed and informed consentwas obtained. All questions were answered. Please referto the signed informed consent document in the medical record. The bowel preparation used was Miralax and bisacodyl tablets via split dose instruction. The scope was passed under direct vision. The Pediatric Colonoscope PCF-H190L [id number] was introducedthrough the anus and advanced to the the cecum, identifiedby appendiceal orifice and ileocecal valve. Thequality of the bowel preparation was good. Bowel prep was administered using a split dose. Findings: The perianal and digital rectal examinations were normal. There was a large wart lesion in the buttock sacral area The descending colon, transverse colon, ascending colon and cecum appeared normal. A 3 mm polyp was found in the sigmoid colon. The polyp was sessile.The polyp was removed with a cold biopsy forceps. Resection and retrieval were complete. Many medium-mouthed diverticula were found in the sigmoid colon. Internal hemorrhoids were found during retroflexion. The hemorrhoids were small. Electronically signed by Rafita Sanchez M.D. Rafita Sanchez M.D. 09/17/2022 12:25:19 PM Number of Addenda: 0 Note Initiated On: 09/17/2022 9:33 AM Procedure Code(s): --- Professional --- 70167, Colonoscopy, flexible; with biopsy, single or multiple Diagnosis Code(s): --- Professional --- Z86.010, Personal history of colonic polyps K64.8, Other hemorrhoids D12.5, Benign neoplasm of sigmoid colon K57.30, Diverticulosis of large intestine without perforation orabscess without bleeding CPT copyright 2020 [employer]. All rights reserved. The codes documented in this report are preliminary and upon custom frame assembler reviewmay be revised to meet current compliance requirements. Recognized by the [employer] for promoting quality in endoscopy Rafita Sanchez MD ENDOSCOPY PROCEDURES Final Result * HEPATITIS C SCREENING (05/01/2016) HEP C Normal Comment:NEGATIVE Historical Provider HEALTH MAINTENANCE Final Result from Last 3 Months or Most Recently Relevant to Health Maintenance Insurance [employer] MED[employer]ARE ADVANTAGE [employer] MED[employer]ARE ADVANTAGE [employer] MEDICARE ADVANTAGE WORKERS COMPENSATION [address] [place] [address] Advance Directives For more information, please contact: [phone] * Full Code (Latest Code Status on File) Date Activated Date Inactivated Comments 03/23/2024 3:10 PM 03/24/2024 7:12 PM * Full Code Date Activated Date Inactivated Comments 09/17/2022 9:45 AM 09/17/2022 4:54 PM * Full Code Date Activated Date Inactivated Comments 09/17/2022 9:45 AM 09/17/2022 9:45 AM * Full Code Date Activated Date Inactivated Comments 12/12/2021 3:47 PM 12/13/2021 7:52 PM * Full Code Date Activated Date Inactivated Comments 12/12/2021 3:47 PM 12/12/2021 3:47 PM Care Teams Materials Buyer Relationship Specialty Start Date End Date Jostin Gregory PA [address] [facility] [address] [place] [address] PCP - General Internal Medicine 10/24/21 Liliana Cameron MD [address] [place] [address] Consulting Physician Cardiology 01/07/23 Libertad Bolden MD [address] [facility] [address] [place] [address] Consulting Physician Sleep Medicine 01/07/23 Johnny Kohler MD [address] [facility] [address] [place] [address] Medical Oncologist/Commercial Credit Head Medical Oncology 06/16/24 Narinder Gore MD PhD [address] [facility]] MEDICAL ONCOLOGY, [facility] [address] [place] [address] Medical Oncologist/Commercial Credit Head Medical Oncology 10/05/24
--- OUTSIDE RECORDS SUMMARY | 2024-10-30 21:50 | XMS_ITS | Encounter Summary ---
Author Organization [facility] Address [address] [place] [address] Phone Care Team Providers Care Test Developer Name Role Phone Rufino Kang MD Primary Care Provi alexia Jostin Gregory Primary Care Provider Jostin Gregory Primary Care Provider Bianca Malik MA Unavailable Laure Spence MA Unavailable Lliiana Cameron MD Unavailable Libertad Bolden MD Unavailable Jacob Anderson MD Unavailable [phone] Sol Alegria MA Unavailable [phone] Johnny Kohler MD Unavailable [phone] Selin Cheung MA Unavailable [phone] Narinder Gore MD PhD Unavailable Encounter Details Date Type Department Care Team (Late st Contact Info) Description 03/11/2017 Orders Only [facility] ProviderBenita MD [address] [place] [address] Social History Tobacco Use Types Packs/Day Years Used Date Smoking Tobacco: Never Smokeless Tobacco: Never Alcohol Use Standard Drinks/Week Comments No 0 (1 standard drink = 0.6 oz pur e alcohol) Sex and Gender Information Value Date Recorded Sex Assigned at Not on file Legal Sex Male 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 Historical Provider LAB BLOOD ORDERABLES Ramya l Result documented in this encounter Visit Diagnoses Not on filedocumented in this encounter Additional Health Concerns Infection Onset Date Last Indicated Resolved Time COVID: Suspected 01/25/2022 01/25/2022 01/25/2022 10:58 AM PLANT MAINTENANCE SUPERVISOR COVID19 01/25/2022 01/25/2022 02/04/2022 3:05 AM PLANT MAINTENANCE SUPERVISOR COVID: Recovered Comment:Added based on recent COVID infection. 02/04/2022 03/07/2022 05/05/2022 3:05 AM C DT COVID: Suspected 10/24/2024 10/24/2024 10/24/2024 7:51 PM CDT documented as of this encounter Care Teams Test Developer Relationship Specialty Start Date End Date Rufino Kang MD PCP - General 05/23/16 10/20/21 Jostin Gregory PA [address] [place] [address] [place] [address] PCP - General Internal Medicine 10/24/21 Jostin Gregory PA [address] [place] [address] [place] [address] PCP - General 10/21/21 10/23/21 Bianca Malik MA [address] [place] [address] [address] [place] [address] ACO Care Edi Programmer Analyst 12/16/21 12/17/21 Laure Spence MA [address] [place] [address] [address] [place] [address] ACO Care Edi Programmer Analyst 05/26/22 05/28/22 Liliana Cameron MD [address] [place] [address] Consulting Physician Cardiology 01/07/23 Libertad Bolden MD [address] [place] [address] [address] [place] [address] Consulting Physician Sleep Medicine 01/07/23 Jacob Anderson MD [address] [place] [address] [address] [place] [address] Surgeon Orthopedic Surgery 07/08/23 08/21/24 Sol Alegria MA [address] [place] [address] [address] [place] [address] ACO Care Edi Programmer Analyst 03/25/24 03/25/24 Johnny Kohler MD [address] [place] [address] [address] [place] [address] Medical Oncologist/Functional Mental Disability Teacher Medical Oncology 06/16/24 Selin Cheung MA [address] [place] [address] [address] [place] [address] ACO Care Edi Programmer Analyst 09/01/24 09/01/24 Narinder Gore MD PhD [address] [facility], [address] [place] [address] Medical Oncologist/Functional Mental Disability Teacher Medical Oncology 10/05/24 [facility] Optometry 08/04/24 08/21/24 documented as of this encounter
--- OUTSIDE RECORDS SUMMARY | 2024-10-30 21:50 | XMS_ITS | Encounter Summary ---
Author Organization [facility] Address [address] [place] [address] Care Team Providers Care Virtual Reality Specialist Name Role Phone Jostin Gregory Primary Care Provider Liliana Cameron MD Unavailable Libertad Bolden MD Unavailable Jacob Anderson MD Unavailable Sol Alegria MA Unavailable [phone] Johnny Kohler MD Unavailable [phone] Selin Cheung MA Unavailable [phone] Narinder Gore MD PhD Unavailable Encounter Details Date Type Department Care Team (Late st Contact Info) Description 02/15/[address] [facility] Primary Care at [address] [place] [address] Jostin Gregory PA [address] [place] [address] [address] [place] [address] Social History Tobacco Use Types Packs/Day Years Used Date Smoking Tobacco: Never Smokeless Tobacco: Never Alcohol Use Standard Drinks/Week Comments No 0 (1 standard drink = 0.6 oz pur e alcohol) AUDIT-C Answer Date Recorded Q1: How often do you have a drink containing alcohol? Never 07/21/2023 Q2: How many drinks containi ng alcohol do you have on a typical day when you are drinking? Patient does not drink Q3: How often do you have si x or more drinks on one occasion? Never 07/21/2023 PHQ-2 Answer Date Recorded PHQ-2 Total Score (If total score is 3 or more points, staff should administer the PHQ-9) 0 11/12/2023 Personal Safety Answer Date Recorded Have you ever been in or are you currently in a harmful physical or emotional relationship or is someone making you feel afraid or unsafe? Denies 07/27/2023 Sex and Gender Information Value Date Recorded Sex Assigned at Not on file Legal Sex Male 9:41 AM SPINNER CAP FRAME Gender Identity Not on file Sexual Orientation Not on file documented as of this encounter Plan of Treatment Not on file documented as of this encounter Visit Diagnoses Not on filedocumented in this encounter Additional Health Concerns Infection Onset Date Last Indicated Resolved Time COVID: Suspected 10/24/2024 10/24/2024 10/24/2024 7:51 PM CDT documented as of this encounter Care Teams Virtual Reality Specialist Relationship Specialty Start Date End Date Jostin Gregory PA [address] [facility] [address] [place] [address] PCP - General Internal Medicine 10/24/21 Liliana Cameron MD [address] [place] [address] Consulting Physician Cardiology 01/07/23 Libertad Bolden MD [address] [facility] [address] [place] [address] Consulting Physician Sleep Medicine 01/07/23 Jacob Anderson MD [address] [facility] [address] [place] [address] Surgeon Orthopedic Surgery 07/08/23 08/21/24 Sol Alegria MA [address] [place] [address] [address] [place] [address] ACO Care Leader Writer 03/25/24 03/25/24 Johnny Kohler MD [address] [place] [address] [address] [place] [address] Medical Oncologist/Toddler Guide Medical Oncology 06/16/24 Selin Cheung MA [address] [facility] [address] [place] [address] ACO Care Leader Writer 09/01/24 09/01/24 Narinder Gore MD PhD [address] [facility], [facility] [address] [place] [address] Medical Oncologist/Toddler Guide Medical Oncology 10/05/24 [facility] Optometry 08/04/24 08/21/24 documented as of this encounter
--- OUTSIDE RECORDS SUMMARY | 2024-10-30 21:50 | XMS_ITS ---
Author Organization [facility] Address [address] [place] [address] Care Team Providers Care Custom Ski Maker Name Role Phone Jostin Gregory Primary Care Provider Liliana Cameorn MD Unavailable [phone] Libertad Bolden MD Unavailable Johnny Kohler MD Unavailable [phone] Narinder Gore MD PhD Unavailable [phone] Active Problems Patient Care Coordination No te Formatting of this note migh t be different from the original. Referring provider: IBB Grider, Dr. Boogie Menchaca Mr. Rufino Mike [...] 03/23/2024 Assessment & Plan (03/23/2024 6:22 PM CUSTOM SKI MAKER): - Restart home allopurinol VERNELL on CPAP [...] (03/25/2022): Added automatically from request for surgery [id number] Assessment & Plan (06/30/2022 10:47 AM CDT): Last colonoscopy completed 08/2017. Repeat colonoscopy due this year. 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 09/05/2021 Assessment & Plan (03/23/2024 6:20 PM CUSTOM SKI MAKER): - Restart pancrelipase Irritable bowel syndrome with diarrhea Pancreatic insufficiency 06/26/2021 Assessment & Plan (06/26/2021 9:58 AM CDT): On creo from gi and helps for most part Benign prostatic hyperplasia 06/26/2021 Assessment & Plan (03/23/2024 6:21 PM CUSTOM SKI MAKER): - Restart home finasteride Assessment & Plan (06/26/2021 10:13 AM CDT): See's uro again Orthostatic hypotension 06/26/2021 Assessment & Plan (06/26/2021 10:16 AM CDT): Mild and see if can push sitting bp a l ittle lower and not cause standing light headness Intermittent diarrhea 03/13/2021 Diarrhea 11/30/2020 Assessment & Plan (02/14/2021 4:22 PM CUSTOM SKI MAKER): Patient has chronic diarrhea. Will start by [...] 11/30/2020 Assessment & Plan (02/14/2021 4:23 PM CUSTOM SKI MAKER): He has symptoms of mild gastroesophageal reflux [...] risk Assessment & Plan (02/10/2019 11:30 AM CUSTOM SKI MAKER): Low fall risk Assessment & Plan (02/08/2018 11:05 AM CUSTOM SKI MAKER): Low risk PE (physical exam), annual 02/08/2018 [...] Consider Assessment & Plan (02/10/2019 11:30 AM CUSTOM SKI MAKER): Low fall risk depresion screen nl cog screen nl had flu shot and both hp shots colon up to date. Consider the shingles s hot series. Activity p rogram is important to ddo Assessment & Plan (02/08/2018 11:33 AM CUSTOM SKI MAKER): depresoin screen not meeting criteria but screen to start higher. Declines meds for now and keep tract of. Screening cmp. ldl at 90/. Check spa on return. Colon screen 2017 and 4 monre yrs. psa marek and check onreturn. Flu shot todoay. Shingles shot in future. p shots up to date Chronic right shoulder pain 02/08/2018 Assessment & Plan (02/08/2018 11:27 AM CUSTOM SKI MAKER): r shoulder reports partial tear but litle to co to me today. This is anot something to do Surgery for under your discription. So sself pt trial and ortho r\f/u or [id number] Retferral for. Went thru Self pt Coronary artery disease of n ative artery of [place] heart with stable angina pectoris 08/06/2017 Assessment & Plan (09/05/2024 11:17 AM CDT): Chronic condition, stable -Follows with Cardiology. Encouraged to schedule appointmennt for eval sooner than 05/2025 Continue Rx: Atorvastatin, ramipril aspirin daily Assessment & Plan (06/26/2021 10:07 AM CDT): Angina stable and keep meds same Assessment & Plan (03/14/2021 9:38 AM CUSTOM SKI MAKER): Stable check pasin and con tmreedds as on Assessment & Plan (09/19/2019 10:36 AM CDT): Chest pain s table and contmeds and risk contorll Assessment & Plan (02/10/2019 11:33 AM CUSTOM SKI MAKER): Chest pain r=free ekg with pacs nsr rate 69 axis 25 and nl. The extra b eats I heard are pac's not a fib that was loking for Assessment & Plan (01/13/2019 11:51 AM CUSTOM SKI MAKER): Cardiac workup last year was negative patient remains asymptomatic continue current medications and focus on risk factor modifications especially he has borderline diabetes and needs to lose weight Assessment & Plan (05/12/2018 10:52 AM CDT): Stable heart. No changes and risk contorll Assessment & Plan (02/08/2018 11:14 AM CUSTOM SKI MAKER): Chest pain free. And cont meds Assessment [...] high Assessment & Plan (02/10/2019 11:28 AM CUSTOM SKI MAKER): a1c ag 6.2 and 6.5 diabettes Assessment & Plan (05/12/2018 10:53 AM CDT): a1c at 5.8 and 5.6 nl. Assessment & Plan (02/08/2018 11:14 AM CUSTOM SKI MAKER): a1c at 5.7 and 5.6 nl. Assessment & Plan (08/06/2017 8:46 AM CDT): a1c up to 6.0 and watch diet Assessment & Plan (04/08/2017 5:05 PM CUSTOM SKI MAKER): a1c at 5.6 and 5.6 andlessnl. Assessment [...] psa Assessment & Plan (02/10/2019 11:32 AM CUSTOM SKI MAKER): Check psa on return Assessment & Plan (05/12/2018 10:52 AM CDT): psa at .893 and good. Assessment & Plan (02/08/2018 11:26 AM CUSTOM SKI MAKER): Check psa on retiurn. Assessment & Plan (09/17/2016 10:49 AM CDT): chesk psa on return Male hypogonadism 09/03/2016 Assessment & Plan (07/16/2023 11:16 AM CDT): Chronic , stable Continue T replacement Update PSA Assessment & Plan (08/22/2021 2:53 PM CDT): Continue T replacement with Androgel Assessment & Plan (03/14/2021 9:39 AM CUSTOM SKI MAKER): ldl at 72 and with known ascvd risk would suggest ading a Small dose of zetia and drop tighte 5 mg on generally joyce drop 20 points and would not expet to need more Or ciet and see. Assessment & Plan (04/20/2020 10:18 AM CUSTOM SKI MAKER): Continue T replacement with Androgel Assessment & Plan (09/28/2019 10:07 AM CDT): Continue T replacement with Androgel Assessment & Plan (09/22/2018 9:41 AM CDT): continue T replacement. rx sent Assessment & Plan (09/21/2017 2:42 PM CDT): Continue Androgel. Assessment & Plan (03/23/2017 11:26 AM CUSTOM SKI MAKER): Continue Androgel Advised him on seeing his [...] hypertension. Assessment & Plan (03/28/2024 10:23 AM CUSTOM SKI MAKER): Recommend DASH diet, heart healthy lifestyle, exercise. Discussed the risks of hypertension. Assessment & Plan (11/12/2023 7:23 AM CDT): Recommend DASH diet, heart healthy lifestyle, exercise. Discussed the risks of hypertension. Assessment & Plan (07/08/2023 7:02 AM CDT): Recommend DASH diet, heart healthy lifestyle, exercise. Discussed the risks of hypertension. Assessment & Plan (01/07/2023 7:03 AM CUSTOM SKI MAKER): Recommend DASH diet, heart healthy lifestyle, exercise. [...] bp. Assessment & Plan (03/14/2021 9:39 AM CUSTOM SKI MAKER): bp good and heart stable no added [...] hypertension. Assessment & Plan (02/10/2019 11:27 AM CUSTOM SKI MAKER): bp stable on meds and no changes an dself check mopnthly the heart st able and ekg essentially nl meds on stay and no changes for now Assessment & Plan (03/18/2018 9:51 AM CUSTOM SKI MAKER): BP is now well-controlled and cont current meds. Recommend DASH diet, heart- healthy lifestyle, exercise. Discussed the risks of hypertension. Assessment & Plan (02/08/2018 11:32 AM CUSTOM SKI MAKER): Bp[ better then past but still high. [...] bp. Assessment & Plan (04/08/2017 5:03 PM CUSTOM SKI MAKER): bp needs tighter given issue in ghte [...] Failure Assessment & Plan (02/08/2018 11:12 AM CUSTOM SKI MAKER): Seeing endocrine and treated Assessment & Plan (09/03/2016 11:21 AM CDT): Continue Androgel, 2 packets SE discussed. Exercise is recommended. Hyperlipidemia 07/09/2013 Overview (05/28/2016): MIXED HYPERLIPIDEMIA Assessment & Plan (03/23/2024 6:19 PM CUSTOM SKI MAKER): - Restart atorvastatin Assessment & Plan (11/12/2023 [...] today Assessment & Plan (02/10/2019 11:28 AM CUSTOM SKI MAKER): ldl at 63 and want in low [...] limited. Assessment & Plan (01/13/2019 11:51 AM CUSTOM SKI MAKER): Lipid numbers are good on current doses of statin Assessment & Plan (05/12/2018 10:54 AM CDT): hdl up to 38 ldl down to 67. On fenofiabrate 135 and maxed atorvastin . As not an issue. No side effects and on snf will cont. His hdl higher from it. Told I would not now start but as wstable and technician terminal and repeater meds will cotn on as is. Your [...] limited. Assessment & Plan (02/08/2018 11:13 AM CUSTOM SKI MAKER): ldl at 90 and good for now. [...] limited. Assessment & Plan (04/08/2017 5:04 PM CUSTOM SKI MAKER): ldl at 75 and great. No changesYour [...] along with whole milk products And limited. Current Treatment and Therapy Plans Nivolumab 360 mg Every 3 Weeks / Ipilimumab 1 mg/kg Every 6 Weeks 42 Day Cycles - Mesothelioma / NSCLC* Plan Start Date:04/14/2024 Plan Provider:Johnny Kohler MD Linked Problems Mesothelioma (pleural) (HCC) Treatment Medications Current Day (Day 1 , Cycle 6 - Planned for 11/17/2024) Next Day (Day 22, Cycle 6 - Planned for 12/08/2024) ipilimumab (YERVOY)ipilimumab (YERVOY) IVPB in 50 mLnivolumab (OPDIVO)nivolumab (OPDIVO) in 50 mL IVPB ipilimumab (YERVOY) 78.5 mg in sodium chloride 0.9% 50 mL IVPBnivolumab (OPDIVO) 360 mg in sodium chloride 0.9% 50 mL IVPB nivolumab (OPDIVO) 360 mg in sodium chloride 0.9% 50 mL IVPB Other Current Plans IV Maintenance Therapy Plan* Plan Start Date:04/18/2024 Plan Provider:Johnny Kohler MD Linked Problems Fitting and adjustment of va scular catheter Treatment Medications No medications scheduled. Past Treatment and Therapy Plans No past plan information found. Lifetime Dose Tracking * Chemical Lifetime Dose Automatic Entry Manual Entr y Fluoro Time 0.205 minutes 0.205 minutes 0 minutes Air kerma at the reference point (Ka,r) 1.25 mGy 1 .25 mGy 0 mGy Resolved Problems Problem Noted Date Diagnosed Date Resolved Date Pleural effusion 05/03/2024 08/04/2024 Malignant pleural effusion 03/23/2024 0 08/04/2024 Assessment & Plan (03/23/2024 6:18 PM CUSTOM SKI MAKER): 03/23: s/p R thoracoscopy with drainage of [...] (11/26/2021): Added automatically from request for surgery [id number] Assessment & Plan (12/16/2021 12:27 PM CDT): [...] stable Assessment & Plan (03/14/2021 9:38 AM CUSTOM SKI MAKER): Wt stable and keep here or drop Assessment & Plan (10/25/2020 10:33 AM CDT): Work to drop wt Assessment & Plan (06/16/2019 10:16 AM CDT): He was counseled on the importance of maintaining a healthy weight and the risks of obesity. Weight loss recommended. PAC (premature atrial contraction) 02/10/2019 06/26/2021 Assessment & Plan (02/10/2019 11:34 AM CUSTOM SKI MAKER): ekg not showing a fib that was loking for but a nl varient of irr heart beat that by self not concern . Not aware of but Reviewed diffreencwe Essential hypertension 01/13/201902/10 Assessment & Plan (01/13/2019 11:51 AM CUSTOM SKI MAKER): Stable continue current medications BMI 31.0-31.9,adult 02/08/2018 10/26/19 21 Assessment & Plan (09/19/2019 10:41 AM CDT): Work to dorp some Assessment & Plan (02/10/2019 11:30 AM CUSTOM SKI MAKER): Work to keep stable Assessment & Plan (05/12/2018 10:52 AM CDT): Work to drop a few Colon cancer screening 08/06/201702/08 Assessment & Plan (08/06/2017 8:50 AM CDT): 5 yr f.u due Other male erectile dysfunction 03/23/2017 02/08/2018 Assessment & Plan (09/21/2017 2:42 PM CDT): On Sildenafil. Assessment & Plan (03/23/2017 11:25 AM CUSTOM SKI MAKER): Start Sildenafil. Recurrent abdominal pain 01/22/2017 Assessment & Plan (01/22/2017 3:42 PM CUSTOM SKI MAKER): Scattered recurrent abd pain . Pizza last night and now nl. Vomiting seemed to clear c.o Will check sono of gallbaldder and if neg consider a hipatobiliray scan to further eval . Maybe ct. Re fereral next if theyh are not reviiiiiieling Coronary artery disease invo lving [place] coronary artery without angina pectoris 09/17/2016 08/06/2017 Assessment & Plan (04/08/2017 5:04 PM CUSTOM SKI MAKER): kep risk controlled so as to reduce risk Assessment & Plan (09/17/2016 10:46 AM CDT): The heart c.o gone and doing weell the risk are well controlled and the ldl at a level that we see some arterial reversal. On asa and plavix Abnormal glucose tolerance test (GTT) 07/09/2013 09/17/2016 Overview (05/30/2016): IMPAIRED ORAL GLUCSE DEB
--- OUTSIDE RECORDS SUMMARY | 2024-10-30 21:50 | XMS_ITS | Encounter Summary ---
Author Organization [facility] Address [address] [place] [address] Phone Care Team Providers Care Fiscal Services Director Name Role Phone Rufino Kang MD Primary Care Provi alexia oJstin Gregory Primary Care Provider Jostin Gregory Primary Care Provider Bianca Malik MA Unavailable Laure Spence MA Unavailable Liliana Cameron MD Unavailable [phone] Libertad Bolden MD Unavailable Jacob Anderson MD Unavailable Sol Alegria MA Unavailable [phone] Johnny Kohler MD Unavailable [phone] Selin Cheung MA Unavailable [phone] Narinder Gore MD PhD Unavailable Encounter Details Date Type Department Care Team (Late st Contact Info) Description 07/17/2017 Orders Only [facility] ProviderBenita MD [address] [place] [address] Social History Tobacco Use Types Packs/Day Years Used Date Smoking Tobacco: Never Smokeless Tobacco: Never Alcohol Use Standard Drinks/Week Comments No 0 (1 standard drink = 0.6 oz pur e alcohol) Sex and Gender Information Value Date Recorded Sex Assigned at Not on file Legal Sex Male 9:41 AM OLDER ADULT SOCIAL WORK SPECIALIST Gender Identity Not on file Sexual Orientation Not on file documented as of this encounter Plan of Treatment Not on file documented as of this encounter Procedures Procedure Name Priority Date/Time Associated Diagnosis Comments DISCHARGE LABORATORY CUMULATIVE REPORT 07/17/2017 12:00 AM CDT documented in this encounter Results * DISCHARGE LABORATORY CUMULATIVE REPORT (07/17/2017 12:00 AM CDT) Narrative 07/17/2017 12:00 AM CDT Ordered by an unspecified provider. us Historical Provider LAB BLOOD ORDERABLES Ramya l Result documented in this encounter Visit Diagnoses Not on filedocumented in this encounter Additional Health Concerns Infection Onset Date Last Indicated Resolved Time COVID: Suspected 01/25/2022 01/25/2022 01/25/2022 10:58 AM OLDER ADULT SOCIAL WORK SPECIALIST COVID19 01/25/2022 01/25/2022 02/04/2022 3:05 AM OLDER ADULT SOCIAL WORK SPECIALIST COVID: Recovered Comment:Added based on recent COVID infection. 02/04/2022 03/07/2022 05/05/2022 3:05 AM C DT COVID: Suspected 10/24/2024 10/24/2024 10/24/2024 7:51 PM CDT documented as of this encounter Care Teams Fiscal Services Director Relationship Specialty Start Date End Date Rufino Kang MD PCP - General 05/23/16 10/20/21 Jostin Gregory PA [address] [place] [address] [place] [id number] PCP - General Internal Medicine 10/24/21 Jostin Gregory PA [address] [place] [address] [place] [place] [id number] PCP - General 10/21/21 10/23/21 Bianca Malik MA [address] [facility] [address] [place] [address] ACO Care Acting Teacher 12/16/21 12/17/21 Laure Spence MA [address] [place] [address] [address] [place] [address] ACO Care Acting Teacher 05/26/22 05/28/22 Liliana Cameron MD [address] [place] [address] Consulting Physician Cardiology 01/07/23 Libertad Bolden MD [address] [place] [address] [address] [place] [address] Consulting Physician Sleep Medicine 01/07/23 Jacob Anderson MD [address] [place] [address] [address] [place] [address] Surgeon Orthopedic Surgery 07/08/23 08/21/24 Sol Alegria MA [address] [place] [address] [address] [place] [address] ACO Care Acting Teacher 03/25/24 03/25/24 Johnny Kohler MD [address] [place] [address] [address] [place] [address] Medical Oncologist/Farm Facility Manager Medical Oncology 06/16/24 Selin Cheung MA [address] [place] [address] [address] [place] [address] ACO Care Acting Teacher 09/01/24 09/01/24 Narinder Gore MD PhD [address] [facility] [address] [facility] ON[facility]OGY, [address] [place] [address] Medical Oncologist/Farm Facility Manager Medical Oncology 10/05/24 [facility] Optometry 08/04/24 08/21/24 documented as of this encounter
[2024-10-30 22:10] LABS: Magnesium 1.6 mg/dL (1.6-2.3)
[2024-10-30 23:06] VITALS: BMI 24.8
[2024-10-30 23:07] VITALS: BP 186/79; PULSE 75; RESP 16; O2SAT 98
--- NOTE | 2024-10-30 23:27 | ADMGEN ---
This patient, Rufino Mike, was admitted to Medical Room 256-. Patient/family oriented to hospital policies and general routines including ID bracelet, bed and alarms, visiting hours, pain management, procedures, bathroom and other care routines, personal items, smoking policy, room service/diet, and visiting hours. Information on how to activate the Rapid Response Team has been discussed. Patient/Family are encouraged to report perceived risks to care and to ask questions if they do not understand what they are told or what they should do.
[2024-10-30 23:31] VITALS: BP 184/70; PULSE 79; RESP 18; TEMP 36.6; O2SAT 98
[2024-10-31] VITALS (8 sets, daily range): BP systolic 144–164; BP diastolic 56–72; PULSE 68–77; RESP 14–20; TEMP 36.6–36.8; O2SAT 96–98
--- NOTE | 2024-10-31 | ECHO_ITS ---
Patient Info Name: Rufino Mike Age: 79 years : 1945 Gender: Male Ht: 67 in Wt: 158 lbs BSA: 1.85 m2 HR: 77 bpm BP: 144 / 59 mmHg Technical Quality: Poor Exam Date: 10/31/2024 12:58 PM Patient Status: O Admit Date: 10/30/2024 Exam Type: CA echo doppler w bubble study w con Complete two-dimentional, color flow and Doppler transthoracic echocardiogram is performed with agitated saline and with contrast to opacify the left ventricle and to improve the delineation of the left ventricle endocardial borders. Staff Referring Physician: Jena Carlson Soda Dispenser: Kaushal Petit III Attending Provider: Jena Carlson Contrast/Agitated Saline Contrast/Ag. Saline: Definity Amount: 2.00 ml Administered By: Kaushal Petit III Existing IV Access: Yes IV Access Condition: patent with no signs of infiltration Contrast/Ag. Saline: Agitated Saline Amount: 20.00 ml Administered By: Kaushal Petit III Existing IV Access: Yes IV Access Condition: patent with no signs of infiltration Summary 1. Poor quality study with limited views. 2. Repeat if clinically indicated. 3. Poor quality agitated saline study. While unlikely to have intracardiac [id number] shunting, unable to definitively rule out due to poor study. Left Ventricle Overall normal left ventricular size and systolic function. Right Ventricle Overall normal left ventricular size and systolic function. Left Atria The left atrium is mildly dilated. Right Atria The right atrium is mildly dilated. Atrial Septum Poor quality agitated saline study. While unlikely to have intracardiac [id number] shunting, unable to definitively rule out due to poor study. Aortic Valve Aortic valve is not assessed in this study. Pulmonic Valve Pulmonic valve is not fully assessed on this study. Mitral Valve Mitral valve was not assessed in this study. Tricuspid Valve Tricuspid valve is not fully assessed in this study. Left Ventricular Outflow Tract Name Value Normal LVOT 2D LVOT Diameter 2.0 cm LVOT Doppler LVOT Peak Velocity 121 cm/s LVOT Peak Gradient 6 mmHg LVOT Mean Gradient 3 mmHg LVOT VTI 22 cm LVOT VTI/AV VTI Ratio 0.8 LVOT Stroke Volume 72 ml LVOT CO 15.2 l/min LVOT CI 8.2 l/min/m2 Mitral Valve Name Value Normal MV Doppler MV Peak Gradient 4 mmHg MV Mean Gradient 1 mmHg MV Area (Cont Eq VTI) 2.9 cm2 MV Diastolic Function MV E Peak Velocity 62 cm/s MV A Peak Velocity 89 cm/s MV E/A 0.7 MV Decel Time (PW) 398 ms MV Annular TDI MV E/e' (Septal) 11.3 MV E/e' (Lateral) 6.7 MV E/e' (Average) 9.0 Tricuspid Valve Name Value Normal TV Annular TDI TV Lateral Lakshmi s' Velocity 28.2 cm/s >=9.5 Aortic Valve Name Value Normal AV Doppler AV Peak Velocity 173 cm/s AV Peak Gradient 12 mmHg AV Mean Gradient 6 mmHg AV VTI 29 cm AV Area (Cont Eq VTI) 2.5 cm2 >=3.0 AV Area (Cont Eq Rl) 2.3 cm2 AV DI (Rl) 0.70 AV Regurgitation 2D LVOT Area 3.3 cm2 Ventricles Name Value Normal LV Dimensions 2D/MM LVOT Diameter 2.0 cm Atria Name Value Normal LA Dimensions LA Volume (4C A-L) 70 ml LA Volume (BP A-L) 65 ml RA Dimensions RA Systolic Major Friedens Length (4C) 5.5 cm 2.1-2.7 RA Area (4C) 18.0 cm2 <=18.0 Report Signatures
--- NOTE | 2024-10-31 02:17 | PM.IMHP ---
H&P: HPI History of Present Illness Date/Time: 10/31/24 02:17 Chief Complaint: Confusion Narrative: 79-year-old male with history of mesothelioma currently on oxycodone p.r.n., fentanyl patch, presents to [facility] ER on 10/30/2024 with altered mental status. The patient lives alone and was accompanied by his girlfriend. She reports he has new onset confusion minutes prior to arrival. This is never happened before. Apparently he cannot remember anything correctly and cannot explain anything in detail, trouble finding words. Denies history of stroke. No trauma, no recent illness otherwise. NIH stroke scale 1. CT brain without IV contrast and CT angiogram head and neck performed reveals no significant stenosis in the carotid or vertebral arteries. No intracranial hemorrhage, mass effect or edema. Blood pressure initially 143/67 increasing to 186/79. Afebrile. Saturating well on room air. Hemoglobin 11.1, sodium 136, serum creatinine 0.81, urinalysis 1+ protein. Review of Systems Review of Systems: All systems reviewed & are unremarkable except as noted in HPI and below (Subjective) PMFSH Past Medical History Medical History HTN (hypertension) Family History Family History (Updated 10/30/24 @ 23:36 by Lakshmi Lee RN) Father History of blood clots Mother Colon cancer Social History Social History Smoking status: Never smoker Alcohol intake: never Substance use: never Lack of Transportation: No Lack of Food: Never True Current Housing: I Have Housing Concerned About Future Housing: No Difficulty Paying Gas/Electric Bills: No Difficulty Paying for Meds: No Currently Unemployed: No Education: High School Diploma/GED Difficulty w/ Childcare or Family Care: No Spiritual care concerns: No Meds Home Medications and Allergies Home Medications ?Medication ?Instructions ?Recorded ?Confirmed ?Type allopurinol 300 mg tablet 300 mg PO DAILY 04/12/23 10/30/24 History amlodipine 10 mg tablet 10 mg PO DAILY 04/12/23 10/30/24 History atorvastatin 80 mg tablet 80 mg PO DAILY 04/12/23 10/30/24 History finasteride 5 mg tablet 5 mg PO DAILY 04/12/23 10/30/24 History terazosin 5 mg capsule 5 mg PO DAILY 04/12/23 10/30/24 History testosterone 50 mg/5 gram (1 %) 2 packet transdermal DAILY 04/12/23 10/30/24 History transdermal gel famotidine 20 mg tablet 20 mg PO Q12H 10/30/24 10/30/24 History fentanyl 25 mcg/hr transdermal 1 patch topical Q72H 10/30/24 10/30/24 History patch [id number]-[id number] 2 cap PO .TIDMEALS 10/30/24 10/30/24 History 36,000-114,000-180,000 unit capsule,delay rel (Creon) oxybutynin chloride 10 mg 10 mg PO DAILY 10/30/24 10/30/24 History tablet,extended release 24 hr oxycodone 5 mg tablet 5 mg PO Q4H PRN pain 10/30/24 10/30/24 History sertraline 50 mg tablet 50 mg PO Q24H 10/30/24 10/30/24 History vibegron 75 mg tablet (Gemtesa) 75 mg PO DAILY 10/30/24 10/30/24 History Allergies Allergy/AdvReac Type Severity Reaction Status Date / Time No Known Allergies Allergy Verified 10/31/24 00:48 Vital Signs Vital Signs - 24 hr 10/30/24 20:36 10/30/24 21:08 10/30/24 21:08 Temperature 98.3 F Pulse Rate 92 76 75 Respiratory Rate 18 15 Blood Pressure 143/67 H 176/71 H Pulse Oximetry 97 98 Oxygen Delivery Room Air 10/30/24 21:15 10/30/24 23:07 10/30/24 23:31 Temperature 97.9 F Pulse Rate 80 75 79 Respiratory Rate 16 16 18 Blood Pressure 176/71 H 186/79 H 184/70 H Pulse Oximetry 100 98 98 Oxygen Delivery Exam Const: General: comfortable and no acute distress Other: A&O x3 HENMT: Mouth: Yes moist mucous membranes Eyes: Pupils: Equal, round and reactive pupils present Other: Pupils 3 mm bilaterally, reactive to light Neck: Neck: supple Resp: Effort & Inspection: normal respiratory effort Auscultation: clear to auscultation bilaterally Cardio: Rate: regular rate Rhythm: regular rhythm GI: Inspection: non-distended GI Palp: Yes Soft to palpation : General: Yes bladder normal to palpation Neuro: General: deep tendon reflexes 2+ bilaterally Motor exam (neuro): 5/5 motor strength present throughout and Normal motor muscle tone present throughout Sensory Exam: normal sensation Extrem: General: no edema Psych: Other: Distracted thoughts, strings multiple thoughts and ideas together in 1 long sentence. Cannot stay focused on the topic of conversation past a few seconds. H&P: Results Labs Labs: Short CBC 10/30/24 Range/Units 21:00 WBC 8.6 (4.5-10.0) K/mm3 Hgb 11.1 L (14.0-18.0) g/dL Hct 34.7 L (42.0-52.0) % Plt Count 233 (150-375) k/mm3 BMP 10/30/24 21:00 Sodium 136 L Potassium 4.3 Chloride 103 Carbon Dioxide 26 BUN 33 H Creatinine 0.81 Glucose 100 Calcium 9.0 Liver Function 10/30/24 Range/Units 21:00 Total Bilirubin 0.3 (0.2-1.3) mg/dL AST 28 (17-59) U/L ALT 28 (6-50) U/L Alkaline Phosphatase 122 (38-126) U/L Albumin 3.9 (3.5-5.1) g/dL Urine 10/30/24 Range/Units 21:18 Urine Color Yellow (Yellow) Urine Appearance Clear (Clear) Urine pH 6.5 (5.0-9.0) Ur Specific Hale 1.037 H (1.001-1.035) Urine Protein 1+ H (Negative) mg/dL Urine Glucose (UA) Negative (Negative) mg/dL Assessment and Plan Assessment and plan (1) Confusion: Code(s): R41.0 - Disorientation, unspecified Status: Acute Plan 79-year-old male with history of mesothelioma currently on oxycodone p.r.n., fentanyl patch, presents to [facility] ER on 10/30/2024 with altered mental status. The patient lives alone and was accompanied by his girlfriend. She reports he has new onset confusion minutes prior to arrival. This is never happened before. Apparently he cannot remember anything correctly and cannot explain anything in detail, trouble finding words. Denies history of stroke. No trauma, no recent illness otherwise. NIH stroke scale 1. CT brain without IV contrast and CT angiogram head and neck performed reveals no significant stenosis in the carotid or vertebral arteries. No intracranial hemorrhage, mass effect or edema. Blood pressure initially 143/67 increasing to 186/79. Afebrile. Saturating well on room air. Hemoglobin 11.1, sodium 136, serum creatinine 0.81, urinalysis 1+ protein. ----- Neurology consulted from the ER. Recommended MRI, pending MRI. Aspirin 325 mg p.o. daily. Appreciate further recommendations. Check urine drug screen. Hold fentanyl and oxycodone, there may be a component of adverse psychiatric effects of narcotic use. Uses these for his mesothelioma. Apparently 1 week prior he had taken off his fentanyl patch earlier and placed a new 1 on. But he has since taken it off and it has been a week. Although, his history seems quite unreliable. He is unsure how much oxycodone he takes. He also takes oxybutynin chloride. The girlfriend was able to assist with these medication reconciliation. Check vitamin B12, ammonia, drug urine screen, TSH. Neuro checks q.4 hours. Telemetry. Resume COAL DUMPING EQUIPMENT OPERATOR atorvastatin. Permissive hypertension. Hold COAL DUMPING EQUIPMENT OPERATOR antihypertensives. Patient wishes to be full code. SCDs. Hospitalist MIPS Advance Care Plan I have confirmed that the patient's Advanced Care Plan is present, code status is documented, or surrogate decision maker is listed in patient medical record.: Yes Medication Reconciliation I have utilized all available resources to obtain, update and review the patients current medications (includes all prescriptions, OTC, herbals, cannabis, and nutritional supplements).: Yes
[2024-10-31] MEDS: ASPIRIN 325 MG TABLET PO (02:39)
[2024-10-31 03:17] LABS: Cannabinoid Screen Urine Negative (Negative)
[2024-10-31 04:48] LABS: Hematocrit 35.4 % (42.0-52.0); Hemoglobin 11.6 g/dL (14.0-18.0); Immature Granulocyte Percent A 0.2 % (0-0.5); Lymphocytes Absolute Auto 1.33 K/mm3 (0.9-3.2); Mean Corpuscular HGB Conc 32.8 g/dl (32-36); Mean Corpuscular Hemoglobin 28.1 pg (26-34); Mean Corpuscular Volume 85.7 fl (80-100); Nucleated Red Blood Cells Absolute Auto 0.000 K/mm3 (0.0-0.012); Nucleated Red Blood Cells Perc 0.0 % (0.0-0.2); Platelet Count Result 205 k/mm3 (150-375); Red Blood Count 4.13 M/mm3 (4.6-6.20); White Blood Count 8.4 K/mm3 (4.5-10.0)
[2024-10-31 04:54] LABS: Ammonia 10 umol/L (9-30)
[2024-10-31 05:11] LABS: Alanine Aminotransferase 29 U/L (6-50); Albumin Level 3.8 g/dL (3.5-5.1); Alkaline Phosphatase 117 U/L (38-126); Anion Gap 6 mmol/L (4-12); Aspartate Amino Transferase 32 U/L (17-59); Bilirubin,Total 0.4 mg/dL (0.2-1.3); Blood Urea Nitrogen 25 mg/dL (9-20); Calcium 9.0 mg/dL (8.4-10.2); Carbon Dioxide 27 mmol/L (22-30); Chloride 102 mmol/L (98-107); Estimated CRCL calculation 73 ml/min; Estimated Glomerular Filt Rate > 60; Glucose 104 mg/dL (65-110); Magnesium 1.6 mg/dL (1.6-2.3); Potassium 4.3 mmol/L (3.4-5.0); Sodium 135 mmol/L (137-145); Total Protein 6.9 g/dL (6.3-8.2)
[2024-10-31 05:40] LABS: Thyroid Stimulating Hormone Reflex 2.150 uIU/mL (0.465-4.68)
[2024-10-31 06:04] LABS: Vitamin B12 318.0 pg/mL (239-931)
--- NOTE | 2024-10-31 07:05 | PM.IMPN ---
Progress Note: A&P Assessment and Plan (1) Confusion: Code(s): R41.0 - Disorientation, unspecified Status: Acute Assessment and Plan: patient lives alone but girlfriend reported he had new onset confusion minutes prior to arrival denies trauma or recent illness s/p CT brain and CTA head and neck with no significant stenosis in the carotid or vertebral arteries. No intracranial hemmorhage, mass effect or edema. Neurology consulted MRI brain ordered Apririn 325 mg daily atorvastatin hold fentanyl and oxycodone for now permissive hypertension - hold home antihypertensives (2) Expressive aphasia: Code(s): R47.01 - Aphasia Status: Acute Assessment and Plan: s/p CT brain and CTA head and neck with no significant stenosis in the carotid or vertebral arteries. No intracranial hemmorhage, mass effect or edema. Neurology consulted, will await recommendations MRI brain ordered, results pending Apririn 325 mg daily atorvastatin hold fentanyl and oxycodone for now permissive hypertension - hold home antihypertensives (3) BPH (benign prostatic hyperplasia): Code(s): N40.0 - Benign prostatic hyperplasia without lower urinary tract symptoms Status: Acute Assessment and Plan: continue finasteride continue terazosin (4) HTN (hypertension): Code(s): I10 - Essential (primary) hypertension Status: Acute Assessment and Plan: allow for permissive HTN at this time hold home amlodipine for now (5) HLD (hyperlipidemia): Code(s): E78.5 - Hyperlipidemia, unspecified Status: Acute Assessment and Plan: continue atorvastatin 80 mg PO daily FLP (6) Mesothelioma: Code(s): C45.9 - Mesothelioma, unspecified Status: Acute Assessment and Plan: patient takes oxycodone and fentanyl at home hold home medications at this time Subjective Date/time seen: 10/31/24 07:05 Interval history: Patient is a 79 year old male with PMh of mesothelioma, HTN, BPH and HLD. Patient presented to the ER with altered mental status. CT brain without IV contrast and CT angiogram head and neck performed reveals no significant stenosis in the carotid or vertebral arteries. Patient was admitted for further workup. Patient seen in his room, lying in his bed, in no acute distress. Patient denies acute pain currently. Patient has family at the bedside. Patient is able to converse today and is able to recall events from yesterday evening. Patient had a brain MRI completed, awaiting results. Patient was evaluated by neurology and will await recommendations. check lipid panel. PT/OT consulted. Review of Systems Review of Systems: All systems reviewed & are unremarkable except as noted in HPI and below (Subjective) Exam Const: General: comfortable and no acute distress Other: A&O x3 HENMT: Mouth: Yes moist mucous membranes Eyes: Pupils: Equal, round and reactive pupils present Neck: Neck: supple Resp: Effort & Inspection: normal respiratory effort Auscultation: clear to auscultation bilaterally Cardio: Rate: regular rate Rhythm: regular rhythm GI: Inspection: non-distended GI Palp: Yes Soft to palpation Auscultation: normal bowel sounds Skin: General skin exam: normal color and no rashes or lesions noted Neuro: Cranial nerves: Yes Equal, round and reactive pupils present Motor exam (neuro): 5/5 motor strength present throughout and Normal motor muscle tone present throughout Sensory Exam: normal sensation Extrem: General: no edema Psych: Other: Distracted thoughts, strings multiple thoughts and ideas together in 1 long sentence. Cannot stay focused on the topic of conversation past a few seconds. Objective Data Vital Signs Vital Signs: Vital Signs - 24 hr 10/30/24 20:36 10/30/24 21:08 10/30/24 21:08 Temperature 98.3 F Pulse Rate 92 76 75 Respiratory Rate 18 15 Blood Pressure 143/67 H 176/71 H Pulse Oximetry 97 98 Oxygen Delivery Room Air 10/30/24 21:15 10/30/24 23:07 10/30/24 23:31 Temperature 97.9 F Pulse Rate 80 75 79 Respiratory Rate 16 16 18 Blood Pressure 176/71 H 186/79 H 184/70 H Pulse Oximetry 100 98 98 Oxygen Delivery 10/31/24 02:36 10/31/24 04:00 10/31/24 04:00 Temperature 98.2 F Pulse Rate 71 72 69 Respiratory Rate 20 Blood Pressure 153/56 H Pulse Oximetry 97 Oxygen Delivery Intake/Output Intake/Output: Intake & Output 10/28/24 10/29/24 10/30/24 10/31/24 23:59 23:59 23:59 23:59 Intake Total 290 Balance 290 Meds/Results Medications: Active Medications Generic Name Dose Route Start Last Admin Trade Name Freq PRN Reason Stop Dose Admin Allopurinol 300 mg 10/31/24 08:00 Allopurinol 300 Mg Tablet PO DAILY@0800 [facility] Aspirin 325 mg 10/31/24 02:25 10/31/24 02:39 Aspirin 325 Mg Tablet PO 325 mg DAILY@0800 [facility] Administration Atorvastatin Calcium 80 mg 10/31/24 09:00 Atorvastatin 40 Mg Tablet PO DAILY [facility] Famotidine 20 mg 10/31/24 09:00 Famotidine 20 Mg Tablet PO Q12HR [facility] Finasteride 5 mg 10/31/24 09:00 Finasteride 5 Mg Tablet PO DAILY [facility] Non-Formulary Medication 2 cap 10/31/24 07:15 [id number] [Creon] PO 11/30/24 07:14 .TIDMEALS [facility] Sertraline HCl 50 mg 10/31/24 09:00 Sertraline Hcl 50 Mg Tablet PO DAILY [facility] Terazosin HCl 5 mg 10/31/24 09:00 Terazosin Hcl 5 Mg Capsule PO DAILY [facility] Labs Labs: Laboratory Results - last 24 hr 10/30/24 10/30/24 10/30/24 20:40 21:00 21:18 WBC 8.6 RBC 4.02 L Hgb 11.1 L Hct 34.7 L MCV 86.3 MCH 27.6 MCHC 32.0 RDW 16.4 H Plt Count 233 MPV 10.3 Immature Gran % (Auto) 0.1 Neut % (Auto) 65.9 Lymph % (Auto) 15.8 L [place] % (Auto) 8.7 H Eos % (Auto) 8.7 H Baso % (Auto) 0.8 Lymph # (Auto) 1.36 [place] # (Auto) 0.8 H Eos # (Auto) 0.8 H Baso # (Auto) 0.1 Abs Immat Gran (auto) 0.01 Absolute Neuts (auto) 5.7 Absolute Nucleated RBC 0.000 Nucleated RBC % 0.0 PT 13.2 INR 1.0 APTT 23.9 Sodium 136 L Potassium 4.3 Chloride 103 Carbon Dioxide 26 Anion Gap 7 BUN 33 H Creatinine 0.81 Estim Creat Clear Calc 60 Estimated GFR > 60 Glucose 100 POC Capillary Glucose 95 Calcium 9.0 Magnesium 1.6 Total Bilirubin 0.3 AST 28 ALT 28 Alkaline Phosphatase 122 Ammonia Total Protein 7.1 Albumin 3.9 Vitamin B12 TSH (Reflex) Urine Color Yellow Urine Appearance Clear Urine pH 6.5 Ur Specific [place] 1.037 H Urine Protein 1+ H Urine Glucose (UA) Negative Urine Ketones Negative Ur Blood (Man) Negative Urine Nitrate Negative Urine Bilirubin Negative Urine Urobilinogen 1.0 Leukocyte Esterase Rfl Negative Urine RBC 0-2 Urine WBC 0-5 Ur Squamous Epith Cells None seen Urine Bacteria None seen Urine Casts 0-2 Urine Opiates Screen Urine Methadone Screen Ur Barbiturates Screen Ur Phencyclidine Scrn Ur Amphetamine Screen U Benzodiazepines Scrn Urine Cocaine Screen U Cannabinoids Screen 10/31/24 10/31/24 02:46 04:39 WBC 8.4 RBC 4.13 L Hgb 11.6 L Hct 35.4 L MCV 85.7 MCH 28.1 MCHC 32.8 RDW 16.3 H Plt Count 205 MPV 9.9 Immature Gran % (Auto) 0.2 Neut % (Auto) 65.7 Lymph % (Auto) 15.9 L [place] % (Auto) 8.4 Eos % (Auto) 9.0 H Baso % (Auto) 0.8 Lymph # (Auto) 1.33 [place] # (Auto) 0.7 H Eos # (Auto) 0.8 H Baso # (Auto) 0.1 Abs Immat Gran (auto) 0.02 Absolute Neuts (auto) 5.5 Absolute Nucleated RBC 0.000 Nucleated RBC % 0.0 PT INR APTT Sodium 135 L Potassium 4.3 Chloride 102 Carbon Dioxide 27 Anion Gap 6 BUN 25 H Creatinine 0.66 L Estim Creat Clear Calc 73 Estimated GFR > 60 Glucose 104 POC Capillary Glucose Calcium 9.0 Magnesium 1.6 Total Bilirubin 0.4 AST 32 ALT 29 Alkaline Phosphatase 117 Ammonia 10 Total Protein 6.9 Albumin 3.8 Vitamin B12 318.0 TSH (Reflex) 2.150 Urine Color Urine Appearance Urine pH Ur Specific [place] Urine Protein Urine Glucose (UA) Urine Ketones Ur Blood (Man) Urine Nitrate Urine Bilirubin Urine Urobilinogen Leukocyte Esterase Rfl Urine RBC Urine WBC Ur Squamous Epith Cells Urine Bacteria Urine Casts Urine Opiates Screen Negative Urine Methadone Screen Negative Ur Barbiturates Screen Negative Ur Phencyclidine Scrn Negative Ur Amphetamine Screen Negative U Benzodiazepines Scrn Negative Urine Cocaine Screen Negative U Cannabinoids Screen Negative Quality VTE Prophylaxis VTE prophylaxis: mechanical ordered
--- OUTSIDE RECORDS SUMMARY | 2024-10-31 07:57 | XMS_ITS | Clinical Summary ---
Author Organization [facility] Address [address] [place] [id number] Care Team Providers Care Director Biostatistics Name Role Phone Jostin Gregory Primary Care Provider Liliana Cameron MD Unavailable Libertad Bolden MD Unavailable Johnny Kohler MD Unavailable [phone] Narinder Gore MD PhD Unavailable Allergies No [...] 03/23/2024 Assessment & Plan (03/23/2024 6:22 PM PERSONNEL ASSOCIATE): - Restart home allopurinol VERNELL on CPAP [...] (03/25/2022): Added automatically from request for surgery [id number] Assessment & Plan (06/30/2022 10:47 AM CDT): Last colonoscopy completed 08/2017. Repeat colonoscopy due this year. 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 09/05/2021 Assessment & Plan (03/23/2024 6:20 PM PERSONNEL ASSOCIATE): - Restart pancrelipase Irritable bowel syndrome with diarrhea 2 Pancreatic insufficiency 06/26/2021 Assessment & Plan (06/26/2021 9:58 AM CDT): On creo from gi and helps for most part Benign prostatic hyperplasia 06/26/2021 Assessment & Plan (03/23/2024 6:21 PM PERSONNEL ASSOCIATE): - Restart home finasteride Assessment & Plan (06/26/2021 10:13 AM CDT): See's uro again Orthostatic hypotension 06/26/2021 Assessment & Plan (06/26/2021 10:16 AM CDT): Mild and see if can push sitting bp a l ittle lower and not cause standing light headness Intermittent diarrhea 03/13/2021 Diarrhea 11/30/2020 Assessment & Plan (02/14/2021 4:22 PM PERSONNEL ASSOCIATE): Patient has chronic diarrhea. Will start by [...] 11/30/2020 Assessment & Plan (02/14/2021 4:23 PM PERSONNEL ASSOCIATE): He has symptoms of mild gastroesophageal reflux [...] risk Assessment & Plan (02/10/2019 11:30 AM PERSONNEL ASSOCIATE): Low fall risk Assessment & Plan (02/08/2018 11:05 AM PERSONNEL ASSOCIATE): Low risk PE (physical exam), annual 02/08/2018 [...] Consider Assessment & Plan (02/10/2019 11:30 AM PERSONNEL ASSOCIATE): Low fall risk depresion screen nl cog screen nl had flu shot and both hp shots colon up to date. Consider the shingles s hot series. Activity p rogram is important to ddo Assessment & Plan (02/08/2018 11:33 AM PERSONNEL ASSOCIATE): depresoin screen not meeting criteria but screen to start higher. Declines meds for now and keep tract of. Screening cmp. ldl at 90/. Check spa on return. Colon screen 2017 and 4 monre yrs. psa marek and check onreturn. Flu shot todoay. Shingles shot in future. p shots up to date Chronic right shoulder pain 02/08/2018 Assessment & Plan (02/08/2018 11:27 AM PERSONNEL ASSOCIATE): r shoulder reports partial tear but litle to co to me today. This is anot something to do Surgery for under your discription. So sself pt trial and ortho r\f/u or gg5ntld Retferral for. 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 Encouraged to schedule appointmennt for eval sooner than 05/2025 Continue Rx: Atorvastatin, ramipril aspirin daily Assessment & Plan (06/26/2021 10:07 AM CDT): Angina stable and keep meds same Assessment & Plan (03/14/2021 9:38 AM PERSONNEL ASSOCIATE): Stable check pasin and con tmreedds as on Assessment & Plan (09/19/2019 10:36 AM CDT): Chest pain s table and contmeds and risk contorll Assessment & Plan (02/10/2019 11:33 AM PERSONNEL ASSOCIATE): Chest pain r=free ekg with pacs nsr rate 69 axis 25 and nl. The extra b eats I heard are pac's not a fib that was loking for Assessment & Plan (01/13/2019 11:51 AM PERSONNEL ASSOCIATE): Cardiac workup last year was negative patient remains asymptomatic continue current medications and focus on risk factor modifications especially he has borderline diabetes and needs to lose weight Assessment & Plan (05/12/2018 10:52 AM CDT): Stable heart. No changes and risk contorll Assessment & Plan (02/08/2018 11:14 AM PERSONNEL ASSOCIATE): Chest pain free. And cont meds Assessment [...] high Assessment & Plan (02/10/2019 11:28 AM PERSONNEL ASSOCIATE): a1c ag 6.2 and 6.5 diabettes Assessment & Plan (05/12/2018 10:53 AM CDT): a1c at 5.8 and 5.6 nl. Assessment & Plan (02/08/2018 11:14 AM PERSONNEL ASSOCIATE): a1c at 5.7 and 5.6 nl. Assessment & Plan (08/06/2017 8:46 AM CDT): a1c up to 6.0 and watch diet Assessment & Plan (04/08/2017 5:05 PM PERSONNEL ASSOCIATE): a1c at 5.6 and 5.6 andlessnl. Assessment [...] psa Assessment & Plan (02/10/2019 11:32 AM PERSONNEL ASSOCIATE): Check psa on return Assessment & Plan (05/12/2018 10:52 AM CDT): psa at .893 and good. Assessment & Plan (02/08/2018 11:26 AM PERSONNEL ASSOCIATE): Check psa on retiurn. Assessment & Plan (09/17/2016 10:49 AM CDT): chesk psa on return Male hypogonadism 09/03/2016 Assessment & Plan (07/16/2023 11:16 AM CDT): Chronic , stable Continue T replacement Update PSA Assessment & Plan (08/22/2021 2:53 PM CDT): Continue T replacement with Androgel Assessment & Plan (03/14/2021 9:39 AM PERSONNEL ASSOCIATE): ldl at 72 and with known ascvd risk would suggest ading a Small dose of zetia and drop tighte 5 mg on generally joyce drop 20 points and would not expet to need more Or ciet and see. Assessment & Plan (04/20/2020 10:18 AM PERSONNEL ASSOCIATE): Continue T replacement with Androgel Assessment & Plan (09/28/2019 10:07 AM CDT): Continue T replacement with Androgel Assessment & Plan (09/22/2018 9:41 AM CDT): continue T replacement. rx sent Assessment & Plan (09/21/2017 2:42 PM CDT): Continue Androgel. Assessment & Plan (03/23/2017 11:26 AM PERSONNEL ASSOCIATE): Continue Androgel Advised him on seeing his [...] hypertension. Assessment & Plan (03/28/2024 10:23 AM PERSONNEL ASSOCIATE): Recommend DASH diet, heart healthy lifestyle, exercise. Discussed the risks of hypertension. Assessment & Plan (11/12/2023 7:23 AM CDT): Recommend DASH diet, heart healthy lifestyle, exercise. Discussed the risks of hypertension. Assessment & Plan (07/08/2023 7:02 AM CDT): Recommend DASH diet, heart healthy lifestyle, exercise. Discussed the risks of hypertension. Assessment & Plan (01/07/2023 7:03 AM PERSONNEL ASSOCIATE): Recommend DASH diet, heart healthy lifestyle, exercise. [...] bp. Assessment & Plan (03/14/2021 9:39 AM PERSONNEL ASSOCIATE): bp good and heart stable no added [...] hypertension. Assessment & Plan (02/10/2019 11:27 AM PERSONNEL ASSOCIATE): bp stable on meds and no changes an dself check mopnthly the heart st able and ekg essentially nl meds on stay and no changes for now Assessment & Plan (03/18/2018 9:51 AM PERSONNEL ASSOCIATE): BP is now well-controlled and cont current meds. Recommend DASH diet, heart- healthy lifestyle, exercise. Discussed the risks of hypertension. Assessment & Plan (02/08/2018 11:32 AM PERSONNEL ASSOCIATE): Bp[ better then past but still high. [...] bp. Assessment & Plan (04/08/2017 5:03 PM PERSONNEL ASSOCIATE): bp needs tighter given issue in ghte [...] Failure Assessment & Plan (02/08/2018 11:12 AM PERSONNEL ASSOCIATE): Seeing endocrine and treated Assessment & Plan (09/03/2016 11:21 AM CDT): Continue Androgel, 2 packets SE discussed. Exercise is recommended. Hyperlipidemia 07/09/2013 Overview (05/28/2016): MIXED HYPERLIPIDEMIA Assessment & Plan (03/23/2024 6:19 PM PERSONNEL ASSOCIATE): - Restart atorvastatin Assessment & Plan (11/12/2023 [...] today Assessment & Plan (02/10/2019 11:28 AM PERSONNEL ASSOCIATE): ldl at 63 and want in low [...] limited. Assessment & Plan (01/13/2019 11:51 AM PERSONNEL ASSOCIATE): Lipid numbers are good on current doses of statin Assessment & Plan (05/12/2018 10:54 AM CDT): hdl up to 38 ldl down to 67. On fenofiabrate 135 and maxed atorvastin . As not an issue. No side effects and on long term care phlebotomist will cont. His hdl higher from it. Told I would not now start but as wstable and intermediate meds will cotn on as is. Your [...] limited. Assessment & Plan (02/08/2018 11:13 AM PERSONNEL ASSOCIATE): ldl at 90 and good for now. [...] limited. Assessment & Plan (04/08/2017 5:04 PM PERSONNEL ASSOCIATE): ldl at 75 and great. No changesYour [...] 08/04/2024 Assessment & Plan (03/23/2024 6:18 PM PERSONNEL ASSOCIATE): 03/23: s/p R thoracoscopy with drainage of [...] (11/26/2021): Added automatically from request for surgery [id number] Assessment & Plan (12/16/2021 12:27 PM CDT): [...] stable Assessment & Plan (03/14/2021 9:38 AM PERSONNEL ASSOCIATE): Wt stable and keep here or drop Assessment & Plan (10/25/2020 10:33 AM CDT): Work to drop wt Assessment & Plan (06/16/2019 10:16 AM CDT): He was counseled on the importance of maintaining a healthy weight and the risks of obesity. Weight loss recommended. PAC (premature atrial contraction) 02/10/2019 06/26/2021 Assessment & Plan (02/10/2019 11:34 AM PERSONNEL ASSOCIATE): ekg not showing a fib that was loking for but a nl varient of irr heart beat that by self not concern . Not aware of but Reviewed diffreencwe Essential hypertension 01/13/201902/10 Assessment & Plan (01/13/2019 11:51 AM PERSONNEL ASSOCIATE): Stable continue current medications BMI 31.0-31.9,adult 02/08/2018 10/26/19 Assessment & Plan (09/19/2019 10:41 AM CDT): Work to dorp some Assessment & Plan (02/10/2019 11:30 AM PERSONNEL ASSOCIATE): Work to keep stable Assessment & Plan (05/12/2018 10:52 AM CDT): Work to drop a few Colon cancer screening 08/06/201702/08 Assessment & Plan (08/06/2017 8:50 AM CDT): 5 yr f.u due Other male erectile dysfunction 03/23/2017 02/08/2018 Assessment & Plan (09/21/2017 2:42 PM CDT): On Sildenafil. Assessment & Plan (03/23/2017 11:25 AM PERSONNEL ASSOCIATE): Start Sildenafil. Recurrent abdominal pain 01/22/2017 Assessment & Plan (01/22/2017 3:42 PM PERSONNEL ASSOCIATE): Scattered recurrent abd pain . Pizza last night and now nl. Vomiting seemed to clear c.o Will check sono of gallbaldder and if neg consider a hipatobiliray scan to further eval . Maybe ct. Re fereral next if theyh are not reviiiiiieling Coronary artery disease invo lving seneca coronary artery without angina pectoris 09/17/2016 08/06/2017 Assessment & Plan (04/08/2017 5:04 PM PERSONNEL ASSOCIATE): kep risk controlled so as to reduce [...] Team Description 10/27/2024 9:30 AM CDT Infusion [facility] [place] [facility] [address] [place] [address] [address] [place] [address] Mario Dumont, SHANAE Fitting and adjustment of vascular catheter (Primary Dx); Mesothelioma (pleural) (HCC) 10/27/2024 9:15 AM CDT Office Visit [facility] [address] [place] [address] Medical Office [address] [place] [address] Johnny Kohler MD Mesothelioma (pleural) (HCC) (Primary Dx); Mesothelioma, malignant (HCC); Cancer related pain; Depression, unspecified depression type 10/27/2024 8:45 AM CDT Lab [facility] [address] [facility] [address] [place] [address] Mesothelioma (pleural) (HCC) 10/27/2024 [facility] Outreach [facility] Care [address] [address] Avery Granda LPN 10/27/2024 [facility] Outreach [address] [address] Sandra Hicks MA 10/26/2024 Telephone [facility] Medicine Physicians [facility] Oncology [address] [place] [address] Medical Office [facility] B [facility] [address] [place] [address] Aga Murphy, CLT 10/24/2024 5:41 PM CDT - 10/24/2024 8:10 PM CDT Emergency [facility] Emergency Department [address] [place] [address] Memory loss (Primary Dx) Discharge Disposition: Discharge to home or self care 10/13/2024 2:00 PM CDT Office Visit [facility] Medicine Oncology [address] [place] [address] [address] [place] [address] Narinder Gore MD PhD Mesothelioma (pleural) (HCC) (Primary Dx) 10/03/2024 9:30 AM CDT Infusion [address] [place] [address] Sree Lee, SHANAE Mesothelioma (pleural) (HCC) (Primary Dx); Fitting and adjustment of vascular catheter 10/03/2024 9:15 AM CDT Office Visit [facility] [address] [place] [address] Medical Office [address] [place] [address] Johnny Kohler MD Mesothelioma (pleural) (HCC) 10/03/2024 8:45 AM CDT Lab [facility] [address] [place] [address] Mesothelioma (pleural) (HCC) 09/27/2024 Orders Only [facility] [address] [place] [address] Medical Office [address] [place] [address] Johnny Kohler MD Mesothelioma (pleural) (HCC) (Primary Dx) 09/26/2024 7:49 AM CDT - 09/26/2024 11:59 PM CDT Hospital Encounter [address] [address] Mesothelioma (pleural) (HCC); Mesothelioma, malignant (HCC) Discharge Disposition: Discharge to home or self care 09/23/[address] [address] PhoebeJaya 09/12/2024 1:45 PM CDT Office Visit [facility] Pulmonary at [address] [place] [address] Boogie Menchaca DO Mesothelioma (pleural) (HCC) (Primary Dx); Mediastinal lymphadenopathy; Shortness of breath 09/12/2024 9:30 AM CDT Infusion [address] [place] [address] Fitting and adjustment of vascular catheter (Primary Dx); Mesothelioma (pleural) (HCC) 09/12/2024 9:15 AM CDT Office Visit [facility] [address] [place] [address] Medical Office [address] [place] [address] Emelyn Boone, PRESSER ALL AROUND Mesothelioma (pleural) (HCC) 09/12/2024 8:45 AM CDT Lab [facility] at [address] [place] [address] Mesothelioma (pleural) (HCC) 09/05/2024 8:30 AM CDT Office Visit [facility] [place] [address] [facility] [address] [place] [address] Ngoc Hollis NP Hypertension, essential (Primary Dx); Coronary artery disease of seneca artery of seneca heart with stable angina pectoris 09/02/[address] [facility] [place] [address] [facility] [address] [place] [address] Jostin Gregory PA Hospital Follow Up 09/02/2024 [facility] Outreach [address] [address] Selin Cheung MA 09/01/2024 [facility] Outreach [address] [address] Selin Cheung MA 08/31/2024 1:20 PM CDT - 08/31/2024 4:08 PM CDT Emergency [facility] Emergency Department [address] [place] [address] Lightheadedness (Primary Dx); Dyspnea, unspecified type Discharge Disposition: Discharge to home or self care 08/31/2024 Orders Only [facility] Medicine Physicians of [address] [place] [address] Johnny Kohler MD 08/22/2024 10:30 AM CDT Infusion [facility] Infusion [place] [address] [facility] [address] [place] [address] Mesothelioma (pleural) (HCC) (Primary Dx); Fitting and adjustment of vascular catheter 08/22/2024 10:00 AM CDT Office Visit [facility] [address] [place] [address] Office [address] [place] [address] Johnny Kohler MD Mesothelioma (pleural) (HCC) (Primary Dx); Mesothelioma, malignant (HCC) 08/22/2024 9:30 AM CDT Lab [facility] Infusion [place] [address] [facility] [address] [place] [address] Mesothelioma (pleural) (HCC) 08/19/2024 Telephone [facility] [address] [place] [address] [address] [place] [address] Johnny Kohler MD 08/16/2024 Orders Only [facility] Medicine Physicians of [address] Office [facility] [address] [place] [address] Johnny Kohler MD 08/05/2024 Telephone [facility] Physicians of [address] Office [facility] [address] [place] [address] Aga Murphy, [place] 08/05/[address] [facility] Primary Care at [address] [address] Jostin Gregory PA 08/05/[address] [facility] Primary Care at [address] [address] Jostin Gregory PA Vitamin D deficiency (Primary Dx); Hypertension, essential; Acquired hypothyroidism; Hyperlipidemia, unspecified hyperlipidemia type; IFG (impaired fasting glucose) 08/04/2024 11:45 AM CDT Lab [address] [address] Vitamin D deficiency; Pure hypercholesterolemia; IGT (impaired glucose tolerance) 08/04/2024 11:00 AM CDT Office Visit [facility] Primary Care at [address] [address] Jostin Gregory PA Pure hypercholesterolemia (Primary Dx); Hypertension, essential; Mesothelioma (pleural) (HCC); Vitamin D deficiency; IGT (impaired glucose tolerance); Acquired hypothyroidism; VERNELL on CPAP; BMI 25.0-25.9,adult 08/04/2024 Results Follow-Up [facility] Primary Care at [address] [address] Jostin Gregory PA Surgical pathology 08/02/[address] [facility] Primary Care at [address] [phone] Jostin Gregory PA Appointment 08/01/2024 9:30 AM CDT [facility] [address] [place] [address] Fitting and adjustment of vascular catheter (Primary Dx); Mesothelioma (pleural) (HCC) 08/01/2024 9:15 AM CDT Office Visit [facility] [address] [place] [address] B [facility] [address] [place] [address] Johnny Kohler MD Hypotension, unspecified hypotension type (Primary Dx); Mesothelioma (pleural) (HCC); Cancer related pain 08/01/2024 8:45 AM CDT Lab [facility] at [address] [place] [address] Mesothelioma (pleural) (HCC); Hypotension, unspecified hypotension type 08/01/2024 Documentation [facility] Medicine Physicians of [address] [facility] [address] [place] [address] Ada Sow RN from Last 3 Months [...] on file Legal Sex Male 9:41 AM PERSONNEL ASSOCIATE Gender Identity Not on file Sexual Orientation [...] Completed 11/12/2023 Medical Devices Implanted Type Area Cognos Developer Device Identifier Shelf Expiration Date Model / Serial / Lot Carol Vicky Powerport Mri Airguard 8fr 1 Lumen Attachable Catheter Latex Free [id number] - [id number] Implanted:Qty: 1 on 04/08/2024 by Sylvester Rosales MD at [facility] Left: Subclavian Carol Mcbee 05/23/2025 [id number] / / [id number] Procedures Procedure Name Priority Date/Time Associated Diagnosis [...] was last reviewed 2020. Testing performed by: [facility], [place], [address] Blood 10/27/2024 9:05 AM CDT 10/27/2024 9:22 AM CDT us Johnny Kohler MD LAB BLOOD ORDERABLES Ramya l Result [facility] ([place]) [address] [facility] Department [place] [address] * (ABNORMAL) Differential, auto (10/27/2024 9:05 AM CDT) Neutrophil abs 5.27 1.50 - 6.50 K/cumm [facility] ([place]) Comment:Testing performed by : [facility] [address], Medical Office [address], [place] [address] Imm gran abs 0.01 0.00 - 0.10 K/cumm [facility] ([place]) Comment:Testing performed by : [facility] [address], Medical Office [facility] [address], [place] [address] Lymphocyte abs 1.49 0.80 - 3.30 K/cumm [facility] ([place]) Comment:Testing performed by : [facility] [address], Medical Office [address], [place] [address] Monocyte abs 0.52 0.20 - 0.80 K/cumm [facility] ([place]) Comment:Testing performed by : [facility] [address], Medical Office [address], [place] [address] Eosinophil abs 0.77(H) 0.00 - 0.50 K/cumm [facility] ([place]) Comment:Testing performed by : [facility] [address], Medical Office [address], [place] [address] Basophil abs 0.09 0.00 - 0.10 K/cumm [facility] ([place]) Comment:Testing performed by : [facility] [address], Medical Office [address], [place] [address] Neutrophil pct 64.7 % [facility] ([place]) Comment: Interpretive Data Percent cell count reference ranges are not reported, since discordance with absolute values may lead to misinterpretation of CBC data. Current Interpretive Data was last revised on 2022. Testing performed by: [facility] [address], Medical Office [facility] [address], [place] [address] Imm gran pct 0.1 % [facility] ([place]) Comment: Interpretive Data Percent cell count reference ranges are not reported, since discordance with absolute values may lead to misinterpretation of CBC data. Current Interpretive Data was last revised on 2022. Testing performed by: [facility] [address], Medical Office [facility] [address], [place] [address] Lymphocyte pct 18.3 % [facility] ([place]) Comment: Interpretive Data Percent cell count reference ranges are not reported, since discordance with absolute values may lead to misinterpretation of CBC data. Current Interpretive Data was last revised on 2022. Testing performed by: [facility] [address], Medical Office [address], [place] [address] Monocyte pct 6.4 % [facility] ([place]) Comment: Interpretive Data Percent cell count reference ranges are not reported, since discordance with absolute values may lead to misinterpretation of CBC data. Current Interpretive Data was last revised on 2022. Testing performed by: [facility] [address], Medical Office [facility] B [facility] [address], [place] [address] Eosinophil pct 9.4 % JOHANNY [facility]AIRE[facility] ([place]) Comment: Interpretive Data Percent cell count reference ranges are not reported, since discordance with absolute values may lead to misinterpretation of CBC data. Current Interpretive Data was last revised on 2022. Testing performed by: [facility] [address], Medical Office [facility] B [facility] [address], [place] [address] Basophil pct 1.1 % [facility] ([place]) Comment: Interpretive Data Percent cell count reference ranges are not reported, since discordance with absolute values may lead to misinterpretation of CBC data. Current Interpretive Data was last revised on 2022. Testing performed by: [facility] [address], Medical Office [facility] B [facility] [address], [place] [address] Blood 10/27/2024 9:05 AM CDT 10/27/2024 9:08 AM CDT Johnny Kohler MD LAB BLOOD ORDERABLES Ramya marcos Result [facility] ([place]) [address] [facility] Department [place] [address] * (ABNORMAL) CBC with auto differential (10/27/2024 9:05 AM CDT) WBC 8.15 3.80 - 9.90 K/cumm [facility] ([place]) Comment:Testing performed by : [facility] [address], Medical Office [facility] [address], [place] [address] Hgb 12.6(L) 13.0 - 17.5 g/dL [facility] ([place]) Comment:Testing performed by : [facility] [address], Medical Office [facility] [address], [place] [address] Hct 38.9 38.9 - 50.3 % [facility] ([place]) Comment:Testing performed by : [facility] [address], Medical Office [facility] [address], [place] [address] Plt 193 150 - 400 K/cumm [facility] ([place]) Comment:Testing performed by : [facility] [address], Medical Office [facility] [address], [place] [address] MPV 10.3 9.1 - 12.3 fL [facility] ([place]) Comment:Testing performed by : [facility] [address], Medical Office [facility] [address], [place] [address] RBC 4.53 4.30 - 5.80 M/cumm [facility] ([place]) Comment:Testing performed by : [facility] [address], Medical Office [facility] [address], [place] [address] MCV 85.9 81.3 - 96.4 fL [facility] ([place]) Comment:Testing performed by : [facility] [address], Medical Office [facility] B [facility] [address], [place] [address] MCH 27.8 27.1 - 33.3 pg [facility] ([place]) Comment:Testing performed by : [facility] [address], Medical Office [facility] [address], [place] [address] MCHC 32.4 32.3 - 35.7 g/dL [facility] ([place]) Comment:Testing performed by : [facility] [address], Medical Office [facility] [address], [place] [address] RDW CV 16.3(H) 11.1 - 14.9 % [facility] ([place]) Comment:Testing performed by : [facility] [address], Medical Office [facility] B [facility] [address], [place] [address] RDW SD 52.4(H) 35.7 - 48.1 fL [facility] ([place]) Comment:Testing performed by : [facility] [address], Medical Office [facility] B [facility] [address], [place] [address] Blood 10/27/2024 9:05 AM CDT 10/27/2024 9:08 AM CDT us Johnny Kohler MD LAB BLOOD ORDERABLES Ramya marcos Result [facility] ([place]) 1 [facility] Department [place] [address] * (ABNORMAL) Comprehensive metabolic panel (10/27/2024 9:05 [...] Ramya l Result [facility] CHAIREZ ([place]) 1 [facility] Department [place] [address] * (ABNORMAL) Urinalysis reflex to microscopic and [...] tendency for uric acid stone formation. Source: [facility] [employer] Current Interpretive Data was last revised on [...] GONZALEZ Final Result [facility] CHAIREZ ([place]) 1 [facility] Department [place] [address] * (ABNORMAL) Urinalysis, microscopic only (10/24/2024 7:42 PM CDT) WBC, ur 0-5 0 - 5 /HPF RBC, ur 0-2 0 - 2 /HPF [facility] ([place]) Mucous, ur Present(A) GABBY A ([place]) Hyaline casts, ur 1-5 0 - 10 /LPF [facility] ([place]) Culture Reflex Comment Reflex conditions for urine culture (WBC >10) not met. [facility] ([place]) Urine 10/24/2024 7:42 PM CDT 10/24/2024 7:45 PM CDT Brook MCCARTNEY LAB URINE ORDERABLES Final Resu lt [facility] ([place]) 1 [facility] Department [place] [address] * Influenza A/B, RSV, and COVID-19 PCR Nasopharyngeal (10/24/2024 6:56 PM CDT) COVID-19 RNA Negative Negative Influenza A RNA Negative Negative [facility] ([place]) Influenza B RNA Negative Negative [facility] ([place]) RSV RNA Negative Negative [facility] ([place]) Comment: Interpretive data: Testing performed by [facility]. This test is performed using the [employer] Xpert Xpress CoV-2/Flu/RSV plus assay. This is a multiplex, real- time reverse transcriptase PCR assay intended for the qualitative detection of nucleic acid from SARS-CoV-2, influenza A, influenza B, and respiratory syncytial virus. This assay has been cleared by the [place] Food and Drug administration. The performance characteristics have been verified by the [facility]. Results must be considered in the clinical context, and a negative result does not rule out infection. Interpretive Data last revised 2023 Nasopharyngeal 10/24/2024 6: 56 PM CDT 10/24/2024 7:08 PM CDT Narrative [facility] ([place]) - 10/24/2024 7:50 PM CDT Is the Patient experiencing symptoms consistent with COVID?->Yes Brook MCCARTNEY LAB MICROBIOLOGY - GENERAL ORDE RABLES Final Result Performing Organization Address City/[facility]/ZIP Co de Phone Number [facility] CHAIREZ ([place]) 1 [facility] Department [place] [address] * eGFR (10/24/2024 6:56 PM CDT) eGFR [...] BLOOD ORDERABLES Final Resu lt [facility] CHAIREZ ([place]) 1 [facility] Department [place] [address] * (ABNORMAL) Differential, auto (10/24/2024 6:56 PM [...] Final Resu lt [facility] ([place]) 1 [facility] Department [place] [address] * (ABNORMAL) CBC with auto differential (10/24/2024 [...] Final Resu lt [facility]BY CHAIREZ ([place]) 1 [facility] [employer] [place] [place] [address] * Magnesium (10/24/2024 6:56 PM CDT) Magnesium 1.5 1.4 - 2.5 mg/dL [facility] ([place]) Blood 10/24/2024 6:56 PM CDT 10/24/2024 7:08 PM CDT us Brook MCCARTNEY LAB BLOOD ORDERABLES Final Resu lt [facility] ([place]) 1 [facility] Department [place] [address] * (ABNORMAL) Comprehensive metabolic panel (10/24/2024 6:56 [...] Final Resu lt [facility] CHAIRE[facility] ([place]) 1 [facility] Department [place] [address] * CT Head WO Contrast (10/24/2024 6:27 [...] Guillaume Michaud M.D. MZ: KWAN Report ID: [id number] Reading Location: [id number] Procedure Note Guillaume Michaud MD - 10/24/2024 [...] Guillaume Michaud M.D. MZ: KWAN Report ID: [id number] Reading Location: [id number] [address] PROCEDURES Final Result * [...] Guillaume Michaud M.D. MZ: MZ Report ID: [id number] Reading Location: [id number] Procedure Note Guillaume Michaud MD - 10/24/2024 [...] Guillaume Michaud M.D. MZ: KWAN Report ID: [id number] Reading Location: [place] [address] Brook MCCARTNEY IMG XR PROCEDURES Final Result * ECG 12 lead (10/24/2024 6:15 PM CDT) 10/24/2024 6:15 PM CDT Narrative [facility] - 10/25/2024 8:24 AM CDT Vent Rate: 71 bpm RR Interval: 843 msec NC Interval: 152 msec QRS Duration: 85 msec QT Interval: 362 msec QTC Interval: 384 msec P-R-T [place]: 40 - 17 - 70 degrees IMPRESSION: SINUS RHYTHM NONSPECIFIC T-WAVE ABNORMALITY BORDERLINE ECG No change compared to prior EKG Electronically Signed By: Jerry Bentley MD [facility] Brook MCCARTNEY ECG ORDERABLES Final Result [facility] * eGFR (10/03/2024 9:25 [...] was last reviewed 2020. Testing performed by: [facility], One [facility], [place], [address] Blood 10/03/2024 9:25 AM CDT 10/03/2024 9:39 AM CDT us Johnny Kohler MD LAB BLOOD ORDERABLES Ramya marcos Result [facility] CHAIRE[facility] ([place]) 1 [facility] Department [place] [address] * (ABNORMAL) Differential, auto (10/03/2024 9:25 AM CDT) Neutrophil abs 4.77 1.50 - 6.50 K/cumm [facility] ([place]) Comment:Testing performed by : [facility] [address], Medical Office [facility] [address], [place] [address] Imm gran abs 0.01 0.00 - 0.10 K/cumm [facility] ([place]) Comment:Testing performed by : [facility] [address], Medical Office [facility] [address], [place] [address] Lymphocyte abs 1.19 0.80 - 3.30 K/cumm [facility] ([place]) Comment:Testing performed by : [facility] [address], Medical Office [facility] [address], [place] [address] Monocyte abs 0.53 0.20 - 0.80 K/cumm [facility] ([place]) Comment:Testing performed by : [facility] [address], Medical Office [facility] [address], [place] [address] Eosinophil abs 1.00(H) 0.00 - 0.50 K/cumm [facility] ([place]) Comment:Testing performed by : [facility] [address], Medical Office [address], [place] [address] Basophil abs 0.08 0.00 - 0.10 K/cumm [facility] ([place]) Comment:Testing performed by : [facility] [address], Medical Office [address], [place] [address] Neutrophil pct 62.9 % [facility] ([place]) Comment: Interpretive Data Percent cell count reference ranges are not reported, since discordance with absolute values may lead to misinterpretation of CBC data. Current Interpretive Data was last revised on 2022. Testing performed by: [facility] [address], Medical Office [facility] [address], [place] [address] Imm gran pct 0.1 % [facility] ([place]) Comment: Interpretive Data Percent cell count reference ranges are not reported, since discordance with absolute values may lead to misinterpretation of CBC data. Current Interpretive Data was last revised on 2022. Testing performed by: [facility] [address], Medical Office [facility] [address], [place] [address] Lymphocyte pct 15.7 % [facility] ([place]) Comment: Interpretive Data Percent cell count reference ranges are not reported, since discordance with absolute values may lead to misinterpretation of CBC data. Current Interpretive Data was last revised on 2022. Testing performed by: [facility] [address], Medical Office [facility] [address], [place] [address] Monocyte pct 7.0 % [facility] ([place]) Comment: Interpretive Data Percent cell count reference ranges are not reported, since discordance with absolute values may lead to misinterpretation of CBC data. Current Interpretive Data was last revised on 2022. Testing performed by: [facility] [address], Medical Office [address], [place] [address] Eosinophil pct 13.2 % [facility] ([place]) Comment: Interpretive Data Percent cell count reference ranges are not reported, since discordance with absolute values may lead to misinterpretation of CBC data. Current Interpretive Data was last revised on 2022. Testing performed by: [facility] [address], Medical Office [facility] [address], [place] [address] Basophil pct 1.1 % [facility] ([place]) Comment: Interpretive Data Percent cell count reference ranges are not reported, since discordance with absolute values may lead to misinterpretation of CBC data. Current Interpretive Data was last revised on 2022. Testing performed by: [facility] [address], Medical Office [facility] B [facility] [address], [place] [address] Blood 10/03/2024 9:25 AM CDT 10/03/2024 9:29 AM CDT us Johnny Kohler MD LAB BLOOD ORDERABLES Ramya l Result [facility] CHAIREZ ([place]) 1 [facility] Department [place] [address] * (ABNORMAL) Thyroid Function Cloud (10/03/2024 9:25 AM CDT) TSH 4.93(H) 0.30 - 4.20 mcIUnit/mL G[facility]BY CHAIREZ ([place]) Blood 10/03/2024 9:25 AM CDT 10/03/2024 9:39 AM CDT us Johnny Kohler MD LAB BLOOD ORDERABLES Ramya l Result [facility] CHAIRE[facility] ([place]) 1 [facility] Department [place] [address] * (ABNORMAL) CBC with auto differential (10/03/2024 9:25 AM CDT) WBC 7.58 3.80 - 9.90 K/cumm [facility] CHAI[facility] ([place]) Comment:Testing performed by : [facility] [address], Medical Office [facility] [address], [place] [address] Hgb 11.7(L) 13.0 - 17.5 g/dL [facility]AI[facility] ([place]) Comment:Testing performed by : [facility] [address], Medical Office [facility] B [facility] [address], [place] [address] Hct 37.6(L) 38.9 - 50.3 % [facility] ([place]) Comment:Testing performed by : [facility] [address], Medical Office [facility] [address], [place] [address] Plt 250 150 - 400 K/cumm [facility] ([place]) Comment:Testing performed by : [facility] [address], Medical Office [facility] [address], [place] [address] MPV 9.7 9.1 - 12.3 fL [facility] ([place]) Comment:Testing performed by : [facility] [address], Medical Office [facility] B [facility] [address], [place] [address] RBC 4.30 4.30 - 5.80 M/cumm [facility] ([place]) Comment:Testing performed by : [facility] [address], Medical Office [facility] [address], [place] [address] MCV 87.4 81.3 - 96.4 fL [facility] ([place]) Comment:Testing performed by : [facility] [address], Medical Office [facility] B [facility] [address], [place] [address] MCH 27.2 27.1 - 33.3 pg [facility] ([place]) Comment:Testing performed by : [facility] [address], Medical Office [facility] [address], [place] [address] MCHC 31.1(L) 32.3 - 35.7 g/dL [facility] ([place]) Comment:Testing performed by : [facility] [address], Medical Office [facility] B [facility] [address], [place] [address] RDW CV 17.2(H) 11.1 - 14.9 % [facility] ([place]) Comment:Testing performed by : [facility] [address], Medical Office [facility] [address], [place] [address] RDW SD 55.6(H) 35.7 - 48.1 fL [facility] ([place]) Comment:Testing performed by : [facility] [address], Medical Office [facility] [address], [place] [address] Blood 10/03/2024 9:25 AM CDT 10/03/2024 9:29 AM CDT Johnny Kohler MD LAB BLOOD ORDERABLES Ramya l Result [facility] ([place]) 1 [facility] [place] [place] [address] * T4, free (10/03/2024 9:25 AM CDT) [facility] Free T4 0.92 0.90 - 1.70 ng/dL [facility] ([place]) Blood 10/03/2024 9:25 AM CDT 10/03/2024 9:39 AM CDT Narrative [facility] ([place]) - 10/03/2024 1:41 PM CDT This test was reflexed from a TSH result. Johnny Kohler MD LAB BLOOD ORDERABLES Edit ed Result - Final Performing Organization Address [facility] Co de Phone Number G[facility]BY CHAIREZ ([place]) 1 [place] [address] * Cortisol (10/03/2024 9:25 AM CDT) [facility] Cortisol 11.8 4.8 - 19.5 mcg/dl Comment: Interpretive Data Normal Range: 4.8 - 19.5 mcg/dL; Evening: Half of morning value. This analyte undergoes marked diurnal variation. Ranges indicated apply to morning specimens. Current interpretive data was last revised 2018. Testing performed by: [facility], [address] [place] [address]., [address] Blood 10/03/2024 9:25 AM CDT 10/03/2024 11:19 AM CDT Johnny Kohler MD LAB BLOOD ORDERABLES Ramya l Result GABBY MancusoRA[place]) 1 [place] [address] * (ABNORMAL) Comprehensive metabolic panel (10/03/2024 9:25 [...] MD LAB BLOOD ORDERABLES Ramya marcos Result [facility] ([place]) 1 [facility] Department [place] [address] * CT Chest W Contrast (09/26/2024 8:31 [...] Johnny Ortiz M.D. RB: DOMINIQUE Report ID: [id number] Reading Location: [id number] Procedure Note Johnny Ortiz MD - 09/30/2024 [...] Johnny Ortiz M.D. RB: DOMINIQUE Report ID: [id number] Reading Location: [id number] Johnny Kohler MD IMG CT PROCEDURES Final R esult * (ABNORMAL) Differential, auto (09/12/2024 8:30 AM CDT) Neutrophil abs 3.45 1.50 - 6.50 K/cumm [facility] ([place]) Comment:Testing performed by : [facility] Infusion [facility] [address], Medical Office [address], [place] [address] Imm gran abs 0.02 0.00 - 0.10 K/cumm [facility] ([place]) Comment:Testing performed by : [facility] [address], Medical Office [facility] [address], [place] [address] Lymphocyte abs 1.15 0.80 - 3.30 K/cumm [facility] ([place]) Comment:Testing performed by : [facility] [address], Medical Office [address], [place] [address] Monocyte abs 0.58 0.20 - 0.80 K/cumm [facility] ([place]) Comment:Testing performed by : [facility] [address], Medical Office [address], [place] [address] Eosinophil abs 0.80(H) 0.00 - 0.50 K/cumm [facility] ([place]) Comment:Testing performed by : [facility] [address], Medical Office [address], [place] [address] Basophil abs 0.06 0.00 - 0.10 K/cumm [facility] ([place]) Comment:Testing performed by : [facility] [address], Medical Office [address], [place] [address] Neutrophil pct 56.9 % [facility] ([place]) Comment: Interpretive Data Percent cell count reference ranges are not reported, since discordance with absolute values may lead to misinterpretation of CBC data. Current Interpretive Data was last revised on 2022. Testing performed by: [facility] [address], Medical Office [address], [place] [address] Imm gran pct 0.3 % [facility] ([place]) Comment: Interpretive Data Percent cell count reference ranges are not reported, since discordance with absolute values may lead to misinterpretation of CBC data. Current Interpretive Data was last revised on 2022. Testing performed by: [facility] [address], Medical Office [address], [place] [address] Lymphocyte pct 19.0 % [facility] ([place]) Comment: Interpretive Data Percent cell count reference ranges are not reported, since discordance with absolute values may lead to misinterpretation of CBC data. Current Interpretive Data was last revised on 2022. Testing performed by: [facility] [address], Medical Office [address], [place] [address] Monocyte pct 9.6 % [facility] ([place]) Comment: Interpretive Data Percent cell count reference ranges are not reported, since discordance with absolute values may lead to misinterpretation of CBC data. Current Interpretive Data was last revised on 2022. Testing performed by: [facility] [address], Medical Office [address], [place] [address] Eosinophil pct 13.2 % [facility] ([place]) Comment: Interpretive Data Percent cell count reference ranges are not reported, since discordance with absolute values may lead to misinterpretation of CBC data. Current Interpretive Data was last revised on 2022. Testing performed by: [facility] [address], Medical Office [address], [place] [address] Basophil pct 1.0 % [facility] ([place]) Comment: Interpretive Data Percent cell count reference ranges are not reported, since discordance with absolute values may lead to misinterpretation of CBC data. Current Interpretive Data was last revised on 2022. Testing performed by: [facility] [address], Medical Office [address], [place] [address] Blood 09/12/2024 8:30 AM CDT 09/12/2024 8:35 AM CDT us Johnny Kohler MD LAB BLOOD ORDERABLES Ramya marcos Result [facility] CHAIRE[facility] ([place]) 1 [facility] [place] [address] * (ABNORMAL) CBC with auto differential (09/12/2024 8:30 AM CDT) WBC 6.06 3.80 - 9.90 K/cumm [facility] ([place]) Comment:Testing performed by : [facility] [address], Medical Office [address], [place] [address] Hgb 11.2(L) 13.0 - 17.5 g/dL [facility] ([place]) Comment:Testing performed by : [facility] [address], Medical Office [facility] [address], [place] [address] Hct 36.1(L) 38.9 - 50.3 % [facility] ([place]) Comment:Testing performed by : [facility] [address], Medical Office [facility] [address], [place] [address] Plt 226 150 - 400 K/cumm [facility] ([place]) Comment:Testing performed by : [facility] [address], Medical Office [facility] [address], [place] [address] MPV 9.6 9.1 - 12.3 fL [facility] ([place]) Comment:Testing performed by : [facility] [address], Medical Office [facility] [address], [place] [address] RBC 4.17(L) 4.30 - 5.80 M/cumm [facility] ([place]) Comment:Testing performed by : [facility] [address], Medical Office [facility] [address], [place] [address] MCV 86.6 81.3 - 96.4 fL [facility] ([place]) Comment:Testing performed by : [facility] [address], Medical Office [address], [place] [address] MCH 26.9(L) 27.1 - 33.3 pg [facility] ([place]) Comment:Testing performed by : [facility] [address], Medical Office [address], [place] [address] MCHC 31.0(L) 32.3 - 35.7 g/dL [facility] ([place]) Comment:Testing performed by : [facility] [address], Medical Office [address], [place] [address] RDW CV 17.0(H) 11.1 - 14.9 % [facility] CHAI[facility] ([place]) Comment:Testing performed by : [facility] [address], Medical Office [address], [place] [address] RDW SD 54.7(H) 35.7 - 48.1 fL G[facility] CHAIRE[facility] ([place]) Comment:Testing performed by : [facility] [address], Medical Office [facility] [address], [place] [address] Blood 09/12/2024 8:30 AM CDT 09/12/2024 8:35 AM CDT Johnny Kohler MD LAB BLOOD ORDERABLES Ramya l Result G[facility]BY CHAIREZ ([place]) 1 [facility] Department [place] [address] * eGFR (09/12/2024 8:20 AM CDT) eGFR [...] was last reviewed 2020. Testing performed by: [facility], [facility], [place], [address] Blood 09/12/2024 8:20 AM CDT 09/12/2024 8:44 AM CDT us Johnny Kohler MD LAB BLOOD ORDERABLES Ramya marcos Result [facility] ([place]) 1 [facility] Department [place] [address] * (ABNORMAL) Comprehensive metabolic panel (09/12/2024 8:20 AM CDT) Sodium 139 135 - 145 mmol/L [facility] ([place]) Potassium, pl 4.2 3.3 - 4.9 mmol/L [facility] ([place]) Chloride 103 97 - 110 mmol/L [facility] ([place]) CO2 28 22 - 32 mmol/L CERNER [...] ORDERABLES Ramya l Result Performing Organization Address [facility] Co de Phone Number [facility] ([place]) 1 [facility] [place] [address] * (ABNORMAL) Troponin T high-sensitivity 4-hour (08/31/2024 [...] ORDERABLES Final R esult Performing Organization Address City/[facility] Co de Phone Number GABBY CHAIREZ ([place]) 1 [facility] [place] [employer] [place] [address] * XR Chest Pa Lateral 2 Vw [...] Willian Gutierrez M.D. KR: MELODY Report ID: [id number] Reading Location: [place] [address] Procedure Note Willian Gutierrez MD - 08/31/2024 [...] Willian Gutierrez M.D. KR: MELODY Report ID: [id number] Reading Location: [id number] us Fred MCCARTNEY IMG XR PROCEDURES Final [...] BLOOD ORDERABLES Final R esult [facility] [place] [address] [place] [address] Department [place] [address] * eGFR (08/31/2024 11:08 AM CDT) eGFR [...] MD LAB BLOOD ORDERABLES Final R esult [facility] ([place]) 1 [facility] Department [place] [address] * (ABNORMAL) Differential, auto (08/31/2024 11:08 AM CDT) Neutrophil abs 4.90 1.50 - 6.50 K/cumm Imm gran abs 0.02 0.00 - 0.10 K/cumm [facility] ([place]) Lymphocyte abs 1.01 0.80 - 3.30 K/cumm [facility] ([place]) Monocyte abs 0.51 0.20 - 0.80 K/cumm [facility] ([place]) Eosinophil abs 0.68(H) 0.00 - 0.50 K/cumm [facility] ([place]) Basophil abs 0.07 0.00 - 0.10 K/cumm [...] Final R esult [facility] ([place]) 1 [facility] Department [place] [address] * (ABNORMAL) CBC with auto differential (08/31/2024 [...] BLOOD ORDERABLES Final R esult [facility] ([place]) 1 [facility] Department [place] [address] * (ABNORMAL) Comprehensive metabolic panel (08/31/2024 11:08 [...] ORDERABLES Final R esult Performing Organization Address City/[facility] Co de Phone Number [facility] ([place]) 1 [facility] Department [place] [address] * ECG 12 lead (08/31/2024 11:02 AM CDT) 08/31/2024 11:0 2 AM CDT Narrative [facility] - 08/31/2024 2:09 PM CDT Vent Rate: 93 bpm RR Interval: 641 msec NC Interval: 141 msec QRS Duration: 81 msec QT Interval: 326 msec QTC Interval: 377 msec P-R-T [place]: 49 - 28 - 60 degrees IMPRESSION: SINUS RHYTHM POSSIBLE LEFT ATRIAL ENLARGEMENT [-0.1mV P-WAVE IN V1/V2] BORDERLINE ECG NO CHANGE FROM PREVIOUS TRACING NOTED Electronically Signed By: Mark Mccray MD Kaushal Jordan MD ECG ORDERABLES Final Result Performing Organization Address [facility] de Phone Number [facility] [employer] [facility] * eGFR (08/22/2024 9:00 AM CDT) eGFR [...] was last reviewed 2020. Testing performed by: [facility], [facility], [place], [address] Blood 08/22/2024 9:00 AM CDT 08/22/2024 9:12 AM CDT us Johnny Kohler MD LAB BLOOD ORDERABLES Ramya marcos Result GABBY CHAIREZ ([place]) 1 [facility] Department [place] [address] * (ABNORMAL) Differential, auto (08/22/2024 9:00 AM CDT) Neutrophil abs 5.69 1.50 - 6.50 K/cumm [facility] ([place]) Comment:Testing performed by : [facility] [address], Medical Office [facility] [address], [place] [address] Imm gran abs 0.01 0.00 - 0.10 K/cumm [facility] ([place]) Comment:Testing performed by : [facility] [address], Medical Office [facility] [address], [place] [address] Lymphocyte abs 0.79(L) 0.80 - 3.30 K/cumm [facility] ([place]) Comment:Testing performed by : [facility] [address], Medical Office [facility] [address], [place] [address] Monocyte abs 0.64 0.20 - 0.80 K/cumm [facility] ([place]) Comment:Testing performed by : [facility] [address], Medical Office [facility] [address], [place] [address] Eosinophil abs 0.49 0.00 - 0.50 K/cumm [facility] ([place]) Comment:Testing performed by : [facility] [address], Medical Office [facility] [address], [place] [address] Basophil abs 0.06 0.00 - 0.10 K/cumm [facility] ([place]) Comment:Testing performed by : [facility] [address], Medical Office [facility] [address], [place] [address] Neutrophil pct 74.1 % [facility] R [facility] ([place]) Comment: Interpretive Data Percent cell count reference ranges are not reported, since discordance with absolute values may lead to misinterpretation of CBC data. Current Interpretive Data was last revised on 2022. Testing performed by: [facility] [address], Medical Office [facility] [address], [place] [address] Imm gran pct 0.1 % [facility] ([place]) Comment: Interpretive Data Percent cell count reference ranges are not reported, since discordance with absolute values may lead to misinterpretation of CBC data. Current Interpretive Data was last revised on 2022. Testing performed by: [facility] [address], Medical Office [facility] B [facility] [address], [place] [address] Lymphocyte pct 10.3 % [facility] R [facility] ([place]) Comment: Interpretive Data Percent cell count reference ranges are not reported, since discordance with absolute values may lead to misinterpretation of CBC data. Current Interpretive Data was last revised on 2022. Testing performed by: [facility] [address], Medical Office [facility] B [facility] [address], [place] [address] Monocyte pct 8.3 % [facility] ([place]) Comment: Interpretive Data Percent cell count reference ranges are not reported, since discordance with absolute values may lead to misinterpretation of CBC data. Current Interpretive Data was last revised on 2022. Testing performed by: [facility] [address], Medical Office [facility] [address], [place] [address] Eosinophil pct 6.4 % [facility] R [facility] ([place]) Comment: Interpretive Data Percent cell count reference ranges are not reported, since discordance with absolute values may lead to misinterpretation of CBC data. Current Interpretive Data was last revised on 2022. Testing performed by: [facility] [address], Medical Office [facility] [address], [place] [address] Basophil pct 0.8 % GABBY CHAIREZ ([place]) Comment: Interpretive Data Percent cell count reference ranges are not reported, since discordance with absolute values may lead to misinterpretation of CBC data. Current Interpretive Data was last revised on 2022. Testing performed by: [facility] [address], Medical Office [facility] [address], [place] [address] Blood 08/22/2024 9:00 AM CDT 08/22/2024 9:01 AM CDT us Johnny Kohler MD LAB BLOOD ORDERABLES Ramya l Result GABBY CHAIREZ ([place]) 1 [facility] Department [place] [address] * Thyroid Function Cloud (08/22/2024 9:00 AM CDT) TSH 2.64 0.30 - 4.20 mcIUnit/mL Comment:Testing performed by : [facility], [facility], [place], [address] Blood 08/22/2024 9:00 AM CDT 08/22/2024 9:12 AM CDT us Johnny Kohler MD LAB BLOOD ORDERABLES Ramya l Result GABBY CHAIREZ ([place]) 1 [facility] Department [place] [address] * (ABNORMAL) CBC with auto differential (08/22/2024 9:00 AM CDT) WBC 7.68 3.80 - 9.90 K/cumm GABBY CHAIRE[facility] ([place]) Comment:Testing performed by : [facility] [address], Medical Office [facility] [address], [place] [address] Hgb 10.9(L) 13.0 - 17.5 g/dL GABBY CHAIREZ ([place]) Comment:Testing performed by : [facility] [address], Medical Office [address], [place] [address] Hct 34.9(L) 38.9 - 50.3 % [facility] ([place]) Comment:Testing performed by : [facility] [address], Medical Office [facility] [address], [place] [address] Plt 240 150 - 400 K/cumm [facility] ([place]) Comment:Testing performed by : [facility] [address], Medical Office [facility] [address], [place] [address] MPV 9.3 9.1 - 12.3 fL [facility] ([place]) Comment:Testing performed by : [facility] [address], Medical Office [facility] [address], [place] [address] RBC 4.08(L) 4.30 - 5.80 M/cumm [facility] ([place]) Comment:Testing performed by : [facility] [address], Medical Office [facility] [address], [place] [address] MCV 85.5 81.3 - 96.4 fL [facility] ([place]) Comment:Testing performed by : [facility] [address], Medical Office [facility] [address], [place] [address] MCH 26.7(L) 27.1 - 33.3 pg [facility] ([place]) Comment:Testing performed by : [facility] [address], Medical Office [facility] [address], [place] [address] MCHC 31.2(L) 32.3 - 35.7 g/dL [facility] ([place]) Comment:Testing performed by : [facility] [address], Medical Office [facility] [address], [place] [address] RDW CV 17.1(H) 11.1 - 14.9 % [facility] ([place]) Comment:Testing performed by : [facility] [address], Medical Office [facility] [address], [place] [address] RDW SD 54.2(H) 35.7 - 48.1 fL [facility] ([place]) Comment:Testing performed by : [facility] [address], Medical Office [facility] [address], [place] [address] Blood 08/22/2024 9:00 AM CDT 08/22/2024 9:01 AM CDT us Johnny Kohler MD LAB BLOOD ORDERABLES Ramya l Result Performing Organization Address [facility] Co de Phone Number GABBY CHAIREZ ([place]) 1 [facility] [place] [address] * Cortisol (08/22/2024 9:00 AM CDT) Cortisol 10.5 4.8 - 19.5 mcg/dl Comment: Interpretive Data Normal Range: 4.8 - 19.5 mcg/dL; Evening: Half of morning value. This analyte undergoes marked diurnal variation. Ranges indicated apply to morning specimens. Current interpretive data was last revised 2018. Testing performed by: [facility], [address] [place] [address]., [address] Blood 08/22/2024 9:00 AM CDT 08/22/2024 5:13 PM CDT us Johnny Kohler MD LAB BLOOD ORDERABLES Ramya l Result Performing Organization Address [facility] Co de Phone Number GABBY CHAIREZ ([place]) 1 [facility] [place] [address] * (ABNORMAL) Comprehensive metabolic panel (08/22/2024 9:00 AM CDT) Sodium 135 135 - 145 mmol/L Comment:Testing performed by : [place], [address] Potassium, pl 4.3 3.3 - 4.9 mmol/L [facility] ([place]) Comment:Testing performed by : [place], [address] Chloride 101 97 - 110 mmol/L [facility] ([place]) Comment:Testing performed by : [place], [address] CO2 24 22 - 32 mmol/L [facility] ([place]) Comment:Testing performed by : [place], [address] Anion gap 11 2 - 15 mmol/L [facility] ([place]) Comment:Testing performed by : [facility], [facility], [place], [address] BUN 22 6 - 25 mg/dL [facility] ([place]) Comment:Testing performed by : [facility], [place], [address] Creatinine 0.79(L) 0.80 - 1.30 mg/dL [facility] ([place]) Comment:Testing performed by : [facility], [place], [address] Glucose 106 70 - 199 mg/dL CERNER [...] was last revised 2022. Testing performed by: [facility], [place], [address] Calcium 8.9 8.5 - 10.3 mg/dL [facility] ([place]) Comment:Testing performed by : [facility], [place], [address] Bilirubin, total 0.2 0.1 - 1.2 mg/dL [facility] ([place]) Comment:Testing performed by : [facility], [place], [address] Protein, pl 6.9 6.5 - 8.5 g/dL [facility] ([place]) Comment:Testing performed by : [facility], [place], [address] Albumin 3.3(L) 3.5 - 5.0 g/dL [facility] ([place]) Comment:Testing performed by : [facility], [place], [address] Alk phos 125 40 - 130 Units/L [facility] ([place]) Comment:Testing performed by : [facility], [place], [address] ALT 14 7 - 55 Units/L [facility] ([place]) Comment:Testing performed by : [facility], [place], [address] AST 13 10 - 50 Units/L GABBY [facility] ([place]) Comment:Testing performed by : [place], [address] Blood 08/22/2024 9:00 AM CDT 08/22/2024 9:12 AM CDT Johnny Kohler MD LAB BLOOD ORDERABLES Ramya l Result GABBY CHAIREZ ([place]) 1 [facility] Department of [employer] [place] [address] * (ABNORMAL) Vitamin D 25 hydroxy (08/04/2024 11:47 AM CDT) Vitamin D 25-OH 29(L) 30 - 80 ng/mL Blood 08/04/2024 11:4 7 AM CDT 08/04/2024 12:02 PM CDT Jostin MCCARTNEY LAB BLOOD ORDERABLES Fi nal Result Performing Organization Address [facility] Co de Phone Number GABBY CHAIREZ ([place]) [address] [place] [address] [employer] [place] [address] * (ABNORMAL) Hemoglobin A1c (08/04/2024 11:47 AM CDT) Hgb A1C 6.0(H) 4.0 - 5.6 % Estimated Average Glucose 126 mg/dL G[facility]BY [facility] ([place]) Comment: The ADA recommends reporting an estimated Average Glucose (eAG) with all Hemoglobin A1c results using the equation derived from a study of 507 normal and diabetic adults. Minority populations were underrepresented and children were not included. (Diabetes Care 31:2969-5110, 2008). The eAG is not equivalent to a fasting glucose. Blood 08/04/2024 11:4 7 AM CDT 08/04/2024 12:02 PM CDT us Jostin MCCARTNEY LAB BLOOD ORDERABLES Fi nal Result GABBY [facility] ([place]) 1 [facility] Department [place] [address] * Lipid panel (08/04/2024 11:47 AM CDT) [...] Fi nal Result GABBY CHAIREZ ([place]) 1 [facility] [place] [address] * Tempus xT DNA and RNA - [...] AM CDT [facility] Portal [email or web address] /[email or web address] 08/18/2024 9:35 AM CDT [facility] Comment:[facility]us [...] Trial Match 1 Clinical Trial NCT ID: [id number] Clinical Trial Title: A Study of AMG 193 in Participants With Advanced MTAP-null Solid Tumors (MTAPESTRY 101) Clinical Trial URL: [email or web address] rials.gov/ct2/[email or web address] [email or web address] Clinical Phase: Phase 1/Phase 2 Clinical Trial Matches: CDKN2A deletion Clinical Trial Distance and Location: [address] [place] [address] 08/18/2024 9:35 AM CDT [facility] Tempus: Clinical Trial Match 2 Clinical Trial NCT ID: [id number] Clinical Trial Title: TAPUR: Testing the Use of Food and Drug Administration (FDA) Approved Drugs That Target a Specific Abnormality in a Tumor Gene in People With Advanced Stage Cancer Clinical Trial URL: [email or web address] [email or web address]/[email or web address]/[email or web address] [email or web address] Clinical Phase: Phase 2 Clinical Trial Matches: CDKN2A deletion, CDKN2B deletion Clinical Trial Distance and Location: [address], [facility] [place] 08/18/2024 9:35 AM CDT [facility] Tempus: Clinical Trial Match 3 Clinical Trial NCT ID: [id number] Clinical Trial Title: A Phase I Study of VKH050 in Patients With Advanced Mesothelioma and Other Solid Tumors Clinical Trial URL: [email or web address] [email or web address].gov/[email or web address]/julienne [email or web address] Clinical Phase: Phase 1 Clinical Trial Matches: LATS1 p.K734* mutation Clinical Trial Distance and Location: 240 [address], [place], [place] 08/18/2024 9:35 AM CDT [facility] [...] - Final [facility] [address] [facility], [address] [place] [address], [facility] [phone] [facility] [address] [address] * eGFR (08/01/2024 8:15 AM CDT) eGFR [...] was last reviewed 2020. Testing performed by: [facility], [facility], [place], [address] Blood 08/01/2024 8:15 AM CDT 08/01/2024 8:25 AM CDT us Johnny Kohler MD LAB BLOOD ORDERABLES Ramya marcos Result [facility] ([place]) 1 [facility] Department [place] [address] * Differential, auto (08/01/2024 8:15 AM CDT) Neutrophil abs 4.67 1.50 - 6.50 K/cumm [facility] ([place]) Comment:Testing performed by : [facility] [address], Medical Office [facility] B [facility] [address], [place] [address] Imm gran abs 0.01 0.00 - 0.10 K/cumm [facility] ([place]) Comment:Testing performed by : [facility] [address], Medical Office [facility] B [facility] [address], [place] [address] Lymphocyte abs 1.23 0.80 - 3.30 K/cumm [facility] ([place]) Comment:Testing performed by : [facility] [address], Medical Office [facility] B [facility] [address], [place] [address] Monocyte abs 0.57 0.20 - 0.80 K/cumm [facility] ([place]) Comment:Testing performed by : [facility] [address], Medical Office [facility] B [facility] [address], [place] [address] Eosinophil abs 0.44 0.00 - 0.50 K/cumm [facility] ([place]) Comment:Testing performed by : [facility] [address], Medical Office [facility] [address], [place] [address] Basophil abs 0.07 0.00 - 0.10 K/cumm [facility] ([place]) Comment:Testing performed by : [facility] [address], Medical Office [facility] [address], [place] [address] Neutrophil pct 66.8 % [facility] ([place]) Comment: Interpretive Data Percent cell count reference ranges are not reported, since discordance with absolute values may lead to misinterpretation of CBC data. Current Interpretive Data was last revised on 2022. Testing performed by: [facility] [address], Medical Office [address], [place] [address] Imm gran pct 0.1 % [facility] ([place]) Comment: Interpretive Data Percent cell count reference ranges are not reported, since discordance with absolute values may lead to misinterpretation of CBC data. Current Interpretive Data was last revised on 2022. Testing performed by: [facility] [address], Medical Office [facility] [address], [place] [address] Lymphocyte pct 17.6 % [facility] ([place]) Comment: Interpretive Data Percent cell count reference ranges are not reported, since discordance with absolute values may lead to misinterpretation of CBC data. Current Interpretive Data was last revised on 2022. Testing performed by: [facility] [address], Medical Office dg [address], [place] [address] Monocyte pct 8.2 % [facility] ([place]) Comment: Interpretive Data Percent cell count reference ranges are not reported, since discordance with absolute values may lead to misinterpretation of CBC data. Current Interpretive Data was last revised on 2022. Testing performed by: [facility] [address], Medical Office [facility] [address], [place] [address] Eosinophil pct 6.3 % [facility] ([place]) Comment: Interpretive Data Percent cell count reference ranges are not reported, since discordance with absolute values may lead to misinterpretation of CBC data. Current Interpretive Data was last revised on 2022. Testing performed by: [facility] [address], Medical Office [facility] [address], [place] [address] Basophil pct 1.0 % [facility] ([place]) Comment: Interpretive Data Percent cell count reference ranges are not reported, since discordance with absolute values may lead to misinterpretation of CBC data. Current Interpretive Data was last revised on 2022. Testing performed by: [facility] [address], Medical Office [facility] [address], [place] [address] Blood 08/01/2024 8:15 AM CDT 08/01/2024 8:18 AM CDT us Johnny Kohlre MD LAB BLOOD ORDERABLES Ramya hemant Result GABBY CHAIREZ ([place]) 1 [facility] Department [place] [address] * (ABNORMAL) CBC with auto differential (08/01/2024 8:15 AM CDT) WBC 6.99 3.80 - 9.90 K/cumm [facility] ([place]) Comment:Testing performed by : [facility] [address], Medical Office [facility] [address], [place] [address] Hgb 10.5(L) 13.0 - 17.5 g/dL [facility] ([place]) Comment:Testing performed by : [facility] [address], Medical Office [facility] [address], [place] [address] Hct 34.0(L) 38.9 - 50.3 % [facility] ([place]) Comment:Testing performed by : [facility] [address], Medical Office [facility] [address], [place] [address] Plt 299 150 - 400 K/cumm [facility] ([place]) Comment:Testing performed by : [facility] [address], Medical Office [facility] [address], [place] [address] MPV 9.4 9.1 - 12.3 fL [facility] ([place]) Comment:Testing performed by : [facility] [address], Medical Office [facility] [address], [place] [address] RBC 4.03(L) 4.30 - 5.80 M/cumm [facility] ([place]) Comment:Testing performed by : [facility] [address], Medical Office [address], [place] [address] MCV 84.4 81.3 - 96.4 fL [facility] ([place]) Comment:Testing performed by : [facility] [address], Medical Office [address], [place] [address] MCH 26.1(L) 27.1 - 33.3 pg [facility] ([place]) Comment:Testing performed by : [facility] [address], Medical Office [facility] [address], [place] [address] MCHC 30.9(L) 32.3 - 35.7 g/dL GABBY CHAIREZ ([place]) Comment:Testing performed by : [facility] [address], Medical Office [facility] [address], [place] [address] RDW CV 17.0(H) 11.1 - 14.9 % GABBY CHAIREZ ([place]) Comment:Testing performed by : [facility] [address], Medical Office [facility] [address], [place] [address] RDW SD 52.4(H) 35.7 - 48.1 fL GABBY CHAIREZ ([place]) Comment:Testing performed by : [facility] [address], Medical Office [facility] [address], [place] [address] Blood 08/01/2024 8:15 AM CDT 08/01/2024 8:18 AM CDT us Johnny Kohler MD LAB BLOOD ORDERABLES Ramya l Result GABBY CHAIREZ ([place]) 1 [facility] [place] [address] * Cortisol (08/01/2024 8:15 AM CDT) Cortisol 15.1 4.8 - 19.5 mcg/dl Comment: Interpretive Data Normal Range: 4.8 - 19.5 mcg/dL; Evening: Half of morning value. This analyte undergoes marked diurnal variation. Ranges indicated apply to morning specimens. Current interpretive data was last revised 2018. Testing performed by: [facility], [address] [place] [address], [place]., [address] Blood 08/01/2024 8:15 AM CDT 08/01/2024 1:55 PM CDT us Johnny Kohler MD LAB BLOOD ORDERABLES Ramya l Result GABBY CHAIREZ ([place]) 1 [facility] [place] [address] * (ABNORMAL) Comprehensive metabolic panel (08/01/2024 8:15 AM CDT) Sodium 140 135 - 145 mmol/L Comment:Testing performed by : [facility], [place], [address] Potassium, pl 4.3 3.3 - 4.9 mmol/L [facility] ([place]) Comment:Testing performed by : [facility], [place], [address] Chloride 104 97 - 110 mmol/L [facility] ([place]) Comment:Testing performed by : [facility], [place], [address] CO2 25 22 - 32 mmol/L [facility] ([place]) Comment:Testing performed by : [facility], [place], [address] Anion gap 11 2 - 15 mmol/L [facility] ([place]) Comment:Testing performed by : [facility], [place], [address] BUN 25 6 - 25 mg/dL [facility] ([place]) Comment:Testing performed by : [facility], [place], [address] Creatinine 0.77(L) 0.80 - 1.30 mg/dL [facility] ([place]) Comment:Testing performed by : [facility], [place], [address] Glucose 113 70 - 199 mg/dL CERNER [...] was last revised 2022. Testing performed by: [facility], [place], [address] Calcium 9.1 8.5 - 10.3 mg/dL [facility] ([place]) Comment:Testing performed by : [place], [address] Bilirubin, total 0.2 0.1 - 1.2 mg/dL [facility] ([place]) Comment:Testing performed by : [facility], [place], [address] Protein, pl 7.0 6.5 - 8.5 g/dL [facility] ([place]) Comment:Testing performed by : [facility], [place], [address] Albumin 3.5 3.5 - 5.0 g/dL [facility] ([place]) Comment:Testing performed by : [facility] [facility], [place], [address] Alk phos 120 40 - 130 Units/L [facility] ([place]) Comment:Testing performed by : [facility], [place], [address] ALT 15 7 - 55 Units/L [facility] ([place]) Comment:Testing performed by : [facility], [place], [address] AST 14 10 - 50 Units/L [facility] ([place]) Comment:Testing performed by : [facility], [place], [address] Blood 08/01/2024 8:15 AM CDT 08/01/2024 8:25 AM CDT us Johnny Kohler MD LAB BLOOD ORDERABLES Ramya l Result [facility] ([place]) 1 [facility] Department [place] [address] * PSA screen (07/06/2024 12:07 PM CDT) [...] LAB BLOOD ORDERABLES Final Resul t G[facility] [address] [facility] Department of Laboratories [place] [id number] * COLONOSCOPY (09/17/2022 9:33 AM CDT) Anatomical Region Laterality Modality Other Narrative Procedure Note Rafita Sanchez MD - 09/17/2022 9:33 AM CDT [facility] Patient Name: Rufino Mike Procedure Date: 09/17/2022 9:33 AM Date of : 1945 Admit Type: Outpatient Age: 76 Gender: Male Attending MD: Rafita Sanchez M.D. Room: [facility] ENDOSCOPY ROOM 1 Note Status: [...] under direct vision. The Pediatric Colonoscope PCF-H190L [id number] was introducedthrough the anus and advanced to [...] 9:33 AM Procedure Code(s): --- Professional --- 59872, Colonoscopy, flexible; with biopsy, single or multiple Diagnosis Code(s): --- Professional --- Z86.010, Personal history of colonic polyps K64.8, Other hemorrhoids D12.5, Benign neoplasm of sigmoid colon K57.30, Diverticulosis of large intestine without perforation orabscess without bleeding CPT copyright 2020 [employer]. All rights reserved. The codes documented in this report are preliminary and upon clutch assembler reviewmay be revised to meet current compliance requirements. Recognized by the [employer] for promoting quality in endoscopy Rafita Sanchez MD ENDOSCOPY PROCEDURES Final Result * HEPATITIS C SCREENING (05/01/2016) HEP C Normal Comment:NEGATIVE Historical Provider HEALTH MAINTENANCE Final Result from Last 3 Months or Most Recently Relevant to Health Maintenance Insurance [facility] AD[facility]AGE [facility]AGE [facility] ADVANTAGE WORKERS COMPENSATION [address] [place] [address] Advance Directives For more information, please contact: [phone] * Full Code (Latest Code Status on [...] 3:47 PM 12/12/2021 3:47 PM Care Teams Director Biostatistics Relationship Specialty Start Date End Date Jostin Gregory PA [address] [facility] [place] [address] PCP - General Internal Medicine 10/24/21 Liliana Cameron MD [address] [place] [address] Consulting Physician Cardiology 01/07/23 Libertad Bolden MD [address] [facility] [place] [address] Consulting Physician Sleep Medicine 01/07/23 Johnny Kohler MD [address] [facility] [address] [place] [address] Medical Oncologist/Catering Operations Manager Medical Oncology 06/16/24 Narinder Gore MD PhD [address] [facility] MEDICAL ONCOLOGY, [facility] [address] [place] [address] Medical Oncologist/Catering Operations Manager Medical Oncology 10/05/24
--- OUTSIDE RECORDS SUMMARY | 2024-10-31 07:57 | XMS_ITS ---
Author Organization [facility] Address [address] [place] [address] Care Team Providers Care Town Administrator Name Role Phone Jostin Gregory Primary Care Provider Liliana Cameron MD Unavailable [phone] Libertad Bolden MD Unavailable Johnny Kohler MD Unavailable [phone] Narinder Gore MD PhD Unavailable [phone] Active Problems Patient Care Coordination No te [...] 03/23/2024 Assessment & Plan (03/23/2024 6:22 PM CAN INTAKE WORKER): - Restart home allopurinol VERNELL on CPAP 07/08/2023 Assessment & Plan (07/08/2023 7:04 AM CDT): On CPAP and following w/ Dr. Boledn Anemia of chronic disease 07/08/2023 Overview (07/08/2023): [...] (03/25/2022): Added automatically from request for surgery [id number] Assessment & Plan (06/30/2022 10:47 AM CDT): Last colonoscopy completed 08/2017. Repeat colonoscopy due this year. 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 09/05/2021 Assessment & Plan (03/23/2024 6:20 PM CAN INTAKE WORKER): - Restart pancrelipase Irritable bowel syndrome with diarrhea Pancreatic insufficiency 06/26/2021 Assessment & Plan (06/26/2021 9:58 AM CDT): On creo from gi and helps for most part Benign prostatic hyperplasia 06/26/2021 Assessment & Plan (03/23/2024 6:21 PM CAN INTAKE WORKER): - Restart home finasteride Assessment & Plan (06/26/2021 10:13 AM CDT): See's uro again Orthostatic hypotension 06/26/2021 Assessment & Plan (06/26/2021 10:16 AM CDT): Mild and see if can push sitting bp a l ittle lower and not cause standing light headness Intermittent diarrhea 03/13/2021 Diarrhea 11/30/2020 Assessment & Plan (02/14/2021 4:22 PM CAN INTAKE WORKER): Patient has chronic diarrhea. Will start by [...] 11/30/2020 Assessment & Plan (02/14/2021 4:23 PM CAN INTAKE WORKER): He has symptoms of mild gastroesophageal reflux [...] risk Assessment & Plan (02/10/2019 11:30 AM CAN INTAKE WORKER): Low fall risk Assessment & Plan (02/08/2018 11:05 AM CAN INTAKE WORKER): Low risk PE (physical exam), annual 02/08/2018 [...] Consider Assessment & Plan (02/10/2019 11:30 AM CAN INTAKE WORKER): Low fall risk depresion screen nl cog screen nl had flu shot and both hp shots colon up to date. Consider the shingles s hot series. Activity p rogram is important to ddo Assessment & Plan (02/08/2018 11:33 AM CAN INTAKE WORKER): depresoin screen not meeting criteria but screen to start higher. Declines meds for now and keep tract of. Screening cmp. ldl at 90/. Check spa on return. Colon screen 2017 and 4 monre yrs. psa marek and check onreturn. Flu shot todoay. Shingles shot in future. p shots up to date Chronic right shoulder pain 02/08/2018 Assessment & Plan (02/08/2018 11:27 AM CAN INTAKE WORKER): r shoulder reports partial tear but litle to co to me today. This is anot something to do Surgery for under your discription. So sself pt trial and ortho r\f/u or gl7dkfi Retferral for. Went thru Self pt Coronary artery disease of n ative artery of [place] heart with stable angina pectoris 08/06/2017 Assessment & Plan (09/05/2024 11:17 AM CDT): Chronic condition, stable -Follows with Cardiology. Encouraged to schedule appointmennt for eval sooner than 05/2025 Continue Rx: Atorvastatin, ramipril aspirin daily Assessment & Plan (06/26/2021 10:07 AM CDT): Angina stable and keep meds same Assessment & Plan (03/14/2021 9:38 AM CAN INTAKE WORKER): Stable check pasin and con tmreedds as on Assessment & Plan (09/19/2019 10:36 AM CDT): Chest pain s table and contmeds and risk contorll Assessment & Plan (02/10/2019 11:33 AM CAN INTAKE WORKER): Chest pain r=free ekg with pacs nsr rate 69 axis 25 and nl. The extra b eats I heard are pac's not a fib that was loking for Assessment & Plan (01/13/2019 11:51 AM CAN INTAKE WORKER): Cardiac workup last year was negative patient remains asymptomatic continue current medications and focus on risk factor modifications especially he has borderline diabetes and needs to lose weight Assessment & Plan (05/12/2018 10:52 AM CDT): Stable heart. No changes and risk contorll Assessment & Plan (02/08/2018 11:14 AM CAN INTAKE WORKER): Chest pain free. And cont meds Assessment [...] high Assessment & Plan (02/10/2019 11:28 AM CAN INTAKE WORKER): a1c ag 6.2 and 6.5 diabettes Assessment & Plan (05/12/2018 10:53 AM CDT): a1c at 5.8 and 5.6 nl. Assessment & Plan (02/08/2018 11:14 AM CAN INTAKE WORKER): a1c at 5.7 and 5.6 nl. Assessment & Plan (08/06/2017 8:46 AM CDT): a1c up to 6.0 and watch diet Assessment & Plan (04/08/2017 5:05 PM CAN INTAKE WORKER): a1c at 5.6 and 5.6 andlessnl. Assessment [...] psa Assessment & Plan (02/10/2019 11:32 AM CAN INTAKE WORKER): Check psa on return Assessment & Plan (05/12/2018 10:52 AM CDT): psa at .893 and good. Assessment & Plan (02/08/2018 11:26 AM CAN INTAKE WORKER): Check psa on retiurn. Assessment & Plan (09/17/2016 10:49 AM CDT): chesk psa on return Male hypogonadism 09/03/2016 Assessment & Plan (07/16/2023 11:16 AM CDT): Chronic , stable Continue T replacement Update PSA Assessment & Plan (08/22/2021 2:53 PM CDT): Continue T replacement with Androgel Assessment & Plan (03/14/2021 9:39 AM CAN INTAKE WORKER): ldl at 72 and with known ascvd risk would suggest ading a Small dose of zetia and drop tighte 5 mg on generally joyce drop 20 points and would not expet to need more Or ciet and see. Assessment & Plan (04/20/2020 10:18 AM CAN INTAKE WORKER): Continue T replacement with Androgel Assessment & Plan (09/28/2019 10:07 AM CDT): Continue T replacement with Androgel Assessment & Plan (09/22/2018 9:41 AM CDT): continue T replacement. rx sent Assessment & Plan (09/21/2017 2:42 PM CDT): Continue Androgel. Assessment & Plan (03/23/2017 11:26 AM CAN INTAKE WORKER): Continue Androgel Advised him on seeing his [...] hypertension. Assessment & Plan (03/28/2024 10:23 AM CAN INTAKE WORKER): Recommend DASH diet, heart healthy lifestyle, exercise. Discussed the risks of hypertension. Assessment & Plan (11/12/2023 7:23 AM CDT): Recommend DASH diet, heart healthy lifestyle, exercise. Discussed the risks of hypertension. Assessment & Plan (07/08/2023 7:02 AM CDT): Recommend DASH diet, heart healthy lifestyle, exercise. Discussed the risks of hypertension. Assessment & Plan (01/07/2023 7:03 AM CAN INTAKE WORKER): Recommend DASH diet, heart healthy lifestyle, exercise. [...] bp. Assessment & Plan (03/14/2021 9:39 AM CAN INTAKE WORKER): bp good and heart stable no added [...] hypertension. Assessment & Plan (02/10/2019 11:27 AM CAN INTAKE WORKER): bp stable on meds and no changes an dself check mopnthly the heart st able and ekg essentially nl meds on stay and no changes for now Assessment & Plan (03/18/2018 9:51 AM CAN INTAKE WORKER): BP is now well-controlled and cont current meds. Recommend DASH diet, heart- healthy lifestyle, exercise. Discussed the risks of hypertension. Assessment & Plan (02/08/2018 11:32 AM CAN INTAKE WORKER): Bp[ better then past but still high. [...] bp. Assessment & Plan (04/08/2017 5:03 PM CAN INTAKE WORKER): bp needs tighter given issue in ghte [...] Failure Assessment & Plan (02/08/2018 11:12 AM CAN INTAKE WORKER): Seeing endocrine and treated Assessment & Plan (09/03/2016 11:21 AM CDT): Continue Androgel, 2 packets SE discussed. Exercise is recommended. Hyperlipidemia 07/09/2013 Overview (05/28/2016): MIXED HYPERLIPIDEMIA Assessment & Plan (03/23/2024 6:19 PM CAN INTAKE WORKER): - Restart atorvastatin Assessment & Plan (11/12/2023 [...] today Assessment & Plan (02/10/2019 11:28 AM CAN INTAKE WORKER): ldl at 63 and want in low [...] limited. Assessment & Plan (01/13/2019 11:51 AM CAN INTAKE WORKER): Lipid numbers are good on current doses of statin Assessment & Plan (05/12/2018 10:54 AM CDT): hdl up to 38 ldl down to 67. On fenofiabrate 135 and maxed atorvastin . As not an issue. No side effects and on long-term will cont. His hdl higher from it. Told I would not now start but as wstable and rat exterminator meds will cotn on as is. Your [...] limited. Assessment & Plan (02/08/2018 11:13 AM CAN INTAKE WORKER): ldl at 90 and good for now. [...] limited. Assessment & Plan (04/08/2017 5:04 PM CAN INTAKE WORKER): ldl at 75 and great. No changesYour [...] 08/04/2024 Assessment & Plan (03/23/2024 6:18 PM CAN INTAKE WORKER): 03/23: s/p R thoracoscopy with drainage of [...] (11/26/2021): Added automatically from request for surgery [id number] Assessment & Plan (12/16/2021 12:27 PM CDT): [...] stable Assessment & Plan (03/14/2021 9:38 AM CAN INTAKE WORKER): Wt stable and keep here or drop Assessment & Plan (10/25/2020 10:33 AM CDT): Work to drop wt Assessment & Plan (06/16/2019 10:16 AM CDT): He was counseled on the importance of maintaining a healthy weight and the risks of obesity. Weight loss recommended. PAC (premature atrial contraction) 02/10/2019 06/26/2021 Assessment & Plan (02/10/2019 11:34 AM CAN INTAKE WORKER): ekg not showing a fib that was loking for but a nl varient of irr heart beat that by self not concern . Not aware of but Reviewed diffreencwe Essential hypertension 01/13/201902/10 Assessment & Plan (01/13/2019 11:51 AM CAN INTAKE WORKER): Stable continue current medications BMI 31.0-31.9,adult 02/08/2018 10/26/19 21 Assessment & Plan (09/19/2019 10:41 AM CDT): Work to dorp some Assessment & Plan (02/10/2019 11:30 AM CAN INTAKE WORKER): Work to keep stable Assessment & Plan (05/12/2018 10:52 AM CDT): Work to drop a few Colon cancer screening 08/06/201702/08 Assessment & Plan (08/06/2017 8:50 AM CDT): 5 yr f.u due Other male erectile dysfunction 03/23/2017 02/08/2018 Assessment & Plan (09/21/2017 2:42 PM CDT): On Sildenafil. Assessment & Plan (03/23/2017 11:25 AM CAN INTAKE WORKER): Start Sildenafil. Recurrent abdominal pain 01/22/2017 Assessment & Plan (01/22/2017 3:42 PM CAN INTAKE WORKER): Scattered recurrent abd pain . Pizza last night and now nl. Vomiting seemed to clear c.o Will check sono of gallbaldder and if neg consider a hipatobiliray scan to further eval . Maybe ct. Re fereral next if theyh are not reviiiiiieling Coronary artery disease invo lving [place] coronary artery without angina pectoris 09/17/2016 08/06/2017 Assessment & Plan (04/08/2017 5:04 PM CAN INTAKE WORKER): kep risk controlled so as to reduce risk Assessment & Plan (09/17/2016 10:46 AM CDT): The heart c.o gone and doing weell the risk are well controlled and the ldl at a level that we see some arterial reversal. On asa and plavix Abnormal glucose tolerance test (GTT) 07/09/2013 09/17/2016 Overview (05/30/2016): IMPAIRED ORAL GLUCSE DEB
--- OUTSIDE RECORDS SUMMARY | 2024-10-31 07:57 | XMS_ITS | Encounter Summary ---
Author Organization [facility] Address [address] [place] [address] Care Team Providers Care Real Estate Administrator Name Role Phone Jostin Gregory Primary Care Provider Liliana Cameron MD Unavailable Libertad Bolden MD Unavailable Jacob Adnerson MD Unavailable Sol Alegria MA Unavailable [phone] Johnny Kohler MD Unavailable [phone] Selin Cheung MA Unavailable [phone] Narinder Gore MD PhD Unavailable Encounter Details Date Type Department Care Team (Late st Contact Info) Description 02/15/2024 Telephone [facility] Primary Care at [address] [place] [address] Jostin Gregory PA [address] [place] [address] [address] [place] [address] Social History Tobacco Use Types [...] on file 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 Gender Identity Not on file Sexual Orientation Not on file documented as of this encounter Plan of Treatment Not on file documented as of this encounter Visit Diagnoses Not on filedocumented in this encounter Additional Health Concerns Infection Onset Date Last Indicated Resolved Time COVID: Suspected 10/24/2024 10/24/2024 10/24/2024 7:51 PM CDT documented as of this encounter Care Teams Real Estate Administrator Relationship Specialty Start Date End Date Jostin Gregory PA [address] [facility] [address] [place] [address] PCP - General Internal Medicine 10/24/21 Liliana Cameron MD [address] [place] [address] Consulting Physician Cardiology 01/07/23 Libertad Bolden MD [address] [facility] [address] [place] [address] Consulting Physician Sleep Medicine 01/07/23 Jacob Anderson MD [address] [facility] [address] [place] [address] Surgeon Orthopedic Surgery 07/08/23 08/21/24 Sol Alegria MA [address] [place] [address] [address] [place] [address] ACO Care Motor Driver 03/25/24 03/25/24 Johnny Kohler MD [address] [place] [address] [address] [place] [address] Medical Oncologist/Meat Molder Medical Oncology 06/16/24 Selin Cheung MA [address] [facility] [address] [place] [address] ACO Care Motor Driver 09/01/24 09/01/24 Narinder Gore MD PhD [address] [facility] MEDICAL ONCOLOGY, [facility] [address] [address] Medical Oncologist/Meat Molder Medical Oncology 10/05/24 [facility] Optometry 08/04/24 08/21/24 documented as of this encounter
--- OUTSIDE RECORDS SUMMARY | 2024-10-31 07:58 | XMS_ITS | Encounter Summary ---
Author Organization [facility] Address [address] [place] [address] Phone Care Team Providers Care Manager Sales Name Role Phone Rufino Kang MD Primary Care Provi alexia Jostin Gregory Primary Care Provider Jostin Gregory Primary Care Provider Bianca Malik MA Unavailable Laure Spence MA Unavailable Liliana Cameron MD Unavailable Libertad Bolden MD Unavailable Jacob Anderson MD Unavailable Sol Alegria MA Unavailable [phone] Johnny Kohler MD Unavailable [phone] Selin Cheung MA Unavailable [phone] Narinder Gore MD PhD Unavailable Encounter Details Date Type Department Care Team (Late st Contact Info) Description 07/17/2017 Orders Only [facility] ProviderBenita MD [address] [place] [address] Social History Tobacco Use Types Packs/Day Years Used Date Smoking Tobacco: Never Smokeless Tobacco: Never Alcohol Use Standard Drinks/Week Comments No 0 (1 standard drink = 0.6 oz pur e alcohol) Sex and Gender Information Value Date Recorded Sex Assigned at Not on file 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 02/04/2022 03/07/2022 05/05/2022 3:05 AM C DT COVID: Suspected 10/24/2024 10/24/2024 10/24/2024 7:51 PM CDT documented as of this encounter Care Teams Manager Sales Relationship Specialty Start Date End Date Rufino Kang MD PCP - General 05/23/16 10/20/21 Jostin Gregory PA [address] [place] [address] [place] [address] PCP - General Internal Medicine 10/24/21 Jostin Gregory PA [address] [place] [address] [address] [place] [address] PCP - General 10/21/21 10/23/21 Bianca Malik MA [address] [facility] [address] [place] [address] ACO Care Table Assembler Metal 12/16/21 12/17/21 Laure Spence MA [address] [place] [address] [address] [place] [address] ACO Care Table Assembler Metal 05/26/22 05/28/22 Liliana Cameron MD [address] [place] [address] Consulting Physician Cardiology 01/07/23 Libertad Bolden MD [address] [place] [address] [address] [place] [address] Consulting Physician Sleep Medicine 01/07/23 Jacob Anderson MD [address] [place] [address] [address] [place] [address] Surgeon Orthopedic Surgery 07/08/23 08/21/24 Sol Alegria MA [address] [place] [address] [address] [place] [address] ACO Care Table Assembler Metal 03/25/24 03/25/24 Johnny Kohler MD [address] [place] [address] [address] [place] [address] Medical Oncologist/Hostess Medical Oncology 06/16/24 Selin Cheung MA [address] [place] [address] [address] [place] [address] ACO Care Table Assembler Metal 09/01/24 09/01/24 Narinder Gore MD PhD [address] [facility] DIV MEDICAL ONCOLOGY, [address] [place] [address] Medical Oncologist/Hostess Medical Oncology 10/05/24 [facility] Optometry 08/04/24 08/21/24 documented as of this encounter
--- OUTSIDE RECORDS SUMMARY | 2024-10-31 07:58 | XMS_ITS | Encounter Summary ---
Author Organization [facility] Address [address] [place] [address] Phone Care Team Providers Care Order Analyst Name Role Phone Rufino Kang MD Primary Care Provi alexia Jostin Gregory Primary Care Provider Jostin Gregory Primary Care Provider Bianca Malik MA Unavailable Laure Spence MA Unavailable Liliana Cameron MD Unavailable Libertad Bolden MD Unavailable Jacob Anderson MD Unavailable Sol Alegria MA Unavailable [phone] Johnny Kohler MD Unavailable [phone] Selin Cheung MA Unavailable [phone] Narinder Gore MD PhD Unavailable Encounter Details Date Type Department Care Team (Late st Contact Info) Description 03/11/2017 Orders Only [facility] ProviderBenita MD [address] [place] [address] Social History Tobacco Use Types Packs/Day Years Used Date Smoking Tobacco: Never Smokeless Tobacco: Never Alcohol Use Standard Drinks/Week Comments No 0 (1 standard drink = 0.6 oz pur e alcohol) Sex and Gender Information Value Date Recorded Sex Assigned at Not on file Legal 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 Historical Provider LAB BLOOD ORDERABLES Ramya l Result documented in this encounter Visit Diagnoses Not on filedocumented in this encounter Additional Health Concerns Infection Onset Date Last Indicated Resolved Time COVID: Suspected 01/25/2022 01/25/2022 01/25/2022 10:58 AM WARDROBE CUSTODIAN COVID19 01/25/2022 01/25/2022 02/04/2022 3:05 AM WARDROBE CUSTODIAN COVID: Recovered Comment:Added based on recent COVID infection. 02/04/2022 03/07/2022 05/05/2022 3:05 AM C DT COVID: Suspected 10/24/2024 10/24/2024 10/24/2024 7:51 PM CDT documented as of this encounter Care Teams Order Analyst Relationship Specialty Start Date End Date Rufino Kang MD PCP - General 05/23/16 10/20/21 Jostin Gregory PA [address] [place] [address] [place] [id number] PCP - General Internal Medicine 10/24/21 Jostin Gregory PA [address] [place] [address] [place] [id number] PCP - General 10/21/21 10/23/21 Bianca Malik MA [address] [place] [address] [address] [place] [address] ACO Care Gas Regulator Repairer Helper 12/16/21 12/17/21 Laure Spence MA [address] [place] [address] [address] [place] [address] ACO Care Gas Regulator Repairer Helper 05/26/22 05/28/22 Liliana Cameron MD [address] [place] [address] Consulting Physician Cardiology 01/07/23 Libertad Bolden MD [address] [place] [address] [address] [place] [address] Consulting Physician Sleep Medicine 01/07/23 Jacob Anderson MD [address] [place] [address] [address] [place] [address] Surgeon Orthopedic Surgery 07/08/23 08/21/24 Sol Alegria MA [address] [place] [address] [address] [place] [address] ACO Care Gas Regulator Repairer Helper 03/25/24 03/25/24 Johnny Kohler MD [address] [place] [address] [address] [place] [address] Medical Oncologist/Instrument Repair Specialist Medical Oncology 06/16/24 Selin Cheung MA [address] [place] [address] [address] [place] [address] ACO Care Gas Regulator Repairer Helper 09/01/24 09/01/24 Narinder Gore MD PhD [address] [facility] DIV MEDICAL ONCOLOGY, [address] [place] [address] Medical Oncologist/Instrument Repair Specialist Medical Oncology 10/05/24 [facility] Optometry 08/04/24 08/21/24 documented as of this encounter
[2024-10-31] MEDS: LIPASE/AMYLASE/PROTEASE 12,000 UNITS CAP 6 CAP PO ×3 (08:27→17:08)
[2024-10-31] MEDS: ATORVASTATIN 40 MG TABLET 80 MG PO (08:29)
[2024-10-31] MEDS: SERTRALINE HCL 50 MG TABLET PO (08:29)
[2024-10-31] MEDS: FINASTERIDE 5 MG TABLET PO (08:29)
[2024-10-31] MEDS: TERAZOSIN HCL 5 MG CAPSULE PO (08:30)
[2024-10-31] MEDS: FAMOTIDINE 20 MG TABLET PO ×2 (08:30→20:07)
[2024-10-31 09:23] LABS: Cholesterol 123 mg/dL (0-200); HDL Direct 45 mg/dL; Triglycerides 76 mg/dL (<150)
--- NOTE | 2024-10-31 12:45 | WPDNEURCNPN ---
Assessment and Plan Assessment and plan (1) TIA (transient ischemic attack): Code(s): G45.9 - Transient cerebral ischemic attack, unspecified Status: Acute (2) HTN (hypertension): Code(s): I10 - Essential (primary) hypertension Status: Acute (3) Mesothelioma: Code(s): C45.9 - Mesothelioma, unspecified Status: Acute Plan Neurologic exam findings are within normal limits. CT scan of brain CT angiogram head and neck have been performed and I reviewed them and they are within acceptable normal limits. His LDL is 45. Patient already has been on a statin. He follows with a primary care provider and [facility]. His vitamin B12 level was 318. I have advised to take vitamin B12 500 mcg tablet 1 tablet daily for next 2 months. In addition his on aspirin and atorvastatin 80 mg a day. He may continue with these. The MRI has been performed the results are awaited From Radiology. However reviewing the films it does not appear that there is any significant new finding. Some white matter changes were noted. There is some questionable hyperintensity in DWI sequence in the left area however this could be not significant. At this time out suggest an echocardiogram and EEG complete the workup. I reviewed the CBC and chemistry profile. He is mildly anemic. He is also following with the oncologist regarding mesothelioma. Consult date: 10/31/24 HPI: Rufino Mike is a 79 year old male who presented to the hospital with the history of sudden onset of speech difficulty. He thought he was also confused. It also suspected the was having expressive aphasia. he managed to get to home. Is a concern for stroke-like symptoms. He could not remember things for while but he had difficulty finding the words to say what he wants to say. There is no prior history of stroke. He had the symptoms last for nearly all evening although there are gradually improving. By this morning he thinks that is close to being normal. He has some tingling and numbness in both hands but no symptoms in the lower limbs. He has been able to talk and walk around the room and go to the bathroom according to the nursing staff. Patient is very pleasant and cooperative in providing history. He lives by himself but has a girlfriend. In the emergency room he had initial evaluation and also CT scan of brain and CT angiogram of the head and neck which did not show any significant abnormalities. Patient has history of mesothelioma diagnosed in December 2023 and he has had a large amount of pleural fluid taken out the tube at [facility]. After that he has had some chemotherapy and is following up with them. He thinks the tumor is taking care of however this needs some follow-up. He has been on oxycodone on fentanyl but he has not taken them for last 1 week. His toxicology screen at the time of presentation was also negative for any of these. Patient denies any headache. No diplopia or difficulty speech or swallowing. He thinks that he has some problem the memory but he is in line with other people of his age group. He is independent with activities of daily living. Review of Systems Review of Systems: All systems reviewed & are unremarkable except as noted in HPI and below PMFSH Past Medical History Medical History (Updated 10/31/24 @ 12:52 by Ekaterina Blanton MD) TIA (transient ischemic attack) Mesothelioma BPH (benign prostatic hyperplasia) HLD (hyperlipidemia) HTN (hypertension) Family History Family History (Updated 10/30/24 @ 23:36 by Lakshmi Lee RN) Father History of blood clots Mother Colon cancer Social History Social History Smoking status: Never smoker Alcohol intake: never Substance use: never Lack of Transportation: No Lack of Food: Never True Current Housing: I Have Housing Concerned About Future Housing: No Difficulty Paying Gas/Electric Bills: No Difficulty Paying for Meds: No Currently Unemployed: No Education: High School Diploma/GED Difficulty w/ Childcare or Family Care: No Spiritual care concerns: No Meds Home Medications and Allergies Home Medications ?Medication ?Instructions ?Recorded ?Confirmed ?Type allopurinol 300 mg tablet 300 mg PO DAILY 04/12/23 10/30/24 History amlodipine 10 mg tablet 10 mg PO DAILY 04/12/23 10/30/24 History atorvastatin 80 mg tablet 80 mg PO DAILY 04/12/23 10/30/24 History finasteride 5 mg tablet 5 mg PO DAILY 04/12/23 10/30/24 History terazosin 5 mg capsule 5 mg PO DAILY 04/12/23 10/30/24 History testosterone 50 mg/5 gram (1 %) 2 packet transdermal DAILY 04/12/23 10/30/24 History transdermal gel famotidine 20 mg tablet 20 mg PO Q12H 10/30/24 10/30/24 History fentanyl 25 mcg/hr transdermal 1 patch topical Q72H 10/30/24 10/30/24 History patch [id number] 2 cap PO .TIDMEALS 10/30/24 10/30/24 History 36,000-114,000-180,000 unit capsule,delay rel (Creon) oxybutynin chloride 10 mg 10 mg PO DAILY 10/30/24 10/30/24 History tablet,extended release 24 hr oxycodone 5 mg tablet 5 mg PO Q4H PRN pain 10/30/24 10/30/24 History sertraline 50 mg tablet 50 mg PO Q24H 10/30/24 10/30/24 History vibegron 75 mg tablet (Gemtesa) 75 mg PO DAILY 10/30/24 10/30/24 History Allergies Allergy/AdvReac Type Severity Reaction Status Date / Time No Known Allergies Allergy Verified 10/31/24 00:48 Vital Signs Vital Signs - 24 hr 10/30/24 20:36 10/30/24 21:08 10/30/24 21:08 Temperature 98.3 F Pulse Rate 92 76 75 Respiratory Rate 18 15 Blood Pressure 143/67 H 176/71 H Pulse Oximetry 97 98 Oxygen Delivery Room Air 10/30/24 21:15 10/30/24 23:07 10/30/24 23:31 Temperature 97.9 F Pulse Rate 80 75 79 Respiratory Rate 16 16 18 Blood Pressure 176/71 H 186/79 H 184/70 H Pulse Oximetry 100 98 98 Oxygen Delivery 10/31/24 02:36 10/31/24 04:00 10/31/24 04:00 Temperature 98.2 F Pulse Rate 71 72 69 Respiratory Rate 20 Blood Pressure 153/56 H Pulse Oximetry 97 Oxygen Delivery 10/31/24 08:00 10/31/24 08:00 10/31/24 08:00 Temperature Pulse Rate 76 77 Respiratory Rate 14 Blood Pressure 144/59 H Pulse Oximetry 96 Oxygen Delivery Room Air 10/31/24 12:00 Temperature Pulse Rate 70 Respiratory Rate 16 Blood Pressure 164/65 H Pulse Oximetry 96 Oxygen Delivery Exam Const: General: cooperative, well developed and alert Orientation/consciousness: oriented to person, oriented to place and oriented to time Other: No aphasia or dysarthria. Patient able to follow commands. He also felt to read and follow two-step commands. HENMT: Head: atraumatic Mouth: Yes oropharynx normal Eyes: Alignment and Position: position normal Pupils: Equal, round and reactive pupils present EOM: EOMs intact bilaterally Neck: Neck: supple Resp: Effort & Inspection: normal respiratory effort Cardio: Rhythm: regular rhythm Skin: General skin exam: normal color Neuro: Cranial nerves: Yes CN's II-XII intact bilaterally, Yes Equal, round and reactive pupils present, Yes Bilaterally intact EOM present, Yes Nystagmus not present, Yes facial symmetry, Yes Midline tongue present, Yes Symmetric palate elevation present and Yes Ability to bilaterally elevate shoulders present Cognition (Neuro): normal cognition Speech: normal speech Motor exam (neuro): 5/5 motor strength present throughout, Motor fasciculations not present, Normal motor muscle tone present throughout and Motor abnormalities not present Sensory Exam: normal sensation Coordination: [id number]-[id number] test normal and Normal rapid alternating movements of the distal upper extremity present (Neuro) Other: Deep tendon reflexes were 0 to 1/4 but no asymmetry was noted. Results Labs 10/31/24 04:39 10/31/24 04:39 Labs: Short CBC 10/30/24 10/31/24 Range/Units 21:00 04:39 WBC 8.6 8.4 (4.5-10.0) K/mm3 Hgb 11.1 L 11.6 L (14.0-18.0) g/dL Hct 34.7 L 35.4 L (42.0-52.0) % Plt Count 233 205 (150-375) k/mm3 [facility] 10/30/24 10/31/24 21:00 04:39 Sodium 136 L 135 L Potassium 4.3 4.3 Chloride 103 102 Carbon Dioxide 26 27 BUN 33 H 25 H Creatinine 0.81 0.66 L Glucose 100 104 Calcium 9.0 9.0 Liver Function 10/30/24 10/31/24 Range/Units 21:00 04:39 Total Bilirubin 0.3 0.4 (0.2-1.3) mg/dL AST 28 32 (17-59) U/L ALT 28 29 (6-50) U/L Alkaline Phosphatase 122 117 (38-126) U/L Albumin 3.9 3.8 (3.5-5.1) g/dL Urine 10/30/24 Range/Units 21:18 Urine Color Yellow (Yellow) Urine Appearance Clear (Clear) Urine pH 6.5 (5.0-9.0) Ur Specific [place] 1.037 H (1.001-1.035) Urine Protein 1+ H (Negative) mg/dL Urine Glucose (UA) Negative (Negative) mg/dL
[2024-10-31] MEDS: PERFLUTREN LIPID MICROSPHERES 1.5 ML VIAL DILUTED TO 10 ML TOTAL VOLUME IV PUSH (13:45)
--- NOTE | 2024-10-31 13:45 | IVDEFINITY ---
Prior to administration of IV Definity the patient was educated on the risks and benefits of the imaging enhancing agent including potential adverse side effects. The patient verbalized understanding. Allergies were verified. No exclusion criteria were identified and at least one of the following inclusion criteria were met: 1) physician request, 2) patient technically difficult to image (per the [place] [employer]ocardi[employer] guidelines of two or more segments not discernable within the apical view), or 3) questionable left ventricular function. ?
[2024-11-01] VITALS: BP 166/70; PULSE 63; PULSE 67; RESP 20; TEMP 36.8; O2SAT 98
[2024-11-01 04:00] VITALS: BP 168/73; PULSE 62; PULSE 64; RESP 20; TEMP 36.5; O2SAT 98
[2024-11-01 05:10] LABS: Hematocrit 36.8 % (42.0-52.0); Hemoglobin 11.6 g/dL (14.0-18.0); Immature Granulocyte Percent A 0.3 % (0-0.5); Lymphocytes Absolute Auto 1.27 K/mm3 (0.9-3.2); Mean Corpuscular HGB Conc 31.5 g/dl (32-36); Mean Corpuscular Hemoglobin 27.6 pg (26-34); Mean Corpuscular Volume 87.6 fl (80-100); Nucleated Red Blood Cells Absolute Auto 0.000 K/mm3 (0.0-0.012); Nucleated Red Blood Cells Perc 0.0 % (0.0-0.2); Platelet Count Result 235 k/mm3 (150-375); Red Blood Count 4.20 M/mm3 (4.6-6.20); White Blood Count 7.7 K/mm3 (4.5-10.0)
[2024-11-01 05:41] LABS: Alanine Aminotransferase 31 U/L (6-50); Albumin Level 3.6 g/dL (3.5-5.1); Alkaline Phosphatase 118 U/L (38-126); Anion Gap 7 mmol/L (4-12); Aspartate Amino Transferase 34 U/L (17-59); Bilirubin,Total 0.3 mg/dL (0.2-1.3); Blood Urea Nitrogen 18 mg/dL (9-20); Calcium 9.2 mg/dL (8.4-10.2); Carbon Dioxide 25 mmol/L (22-30); Chloride 102 mmol/L (98-107); Estimated CRCL calculation 77 ml/min; Estimated Glomerular Filt Rate > 60; Glucose 101 mg/dL (65-110); Potassium 4.2 mmol/L (3.4-5.0); Sodium 134 mmol/L (137-145); Total Protein 6.6 g/dL (6.3-8.2)
[2024-11-01 08:00] VITALS: BP 162/68; PULSE 63; PULSE 67; RESP 20; TEMP 36.6; O2SAT 98
[2024-11-01] MEDS: TERAZOSIN HCL 5 MG CAPSULE PO (08:59)
[2024-11-01] MEDS: SERTRALINE HCL 50 MG TABLET PO (08:59)
[2024-11-01] MEDS: FAMOTIDINE 20 MG TABLET PO (08:59)
[2024-11-01] MEDS: ATORVASTATIN 40 MG TABLET 80 MG PO (08:59)
[2024-11-01] MEDS: LIPASE/AMYLASE/PROTEASE 12,000 UNITS CAP 6 CAP PO ×2 (08:59→11:13)
[2024-11-01] MEDS: FINASTERIDE 5 MG TABLET PO (08:59)
[2024-11-01] MEDS: ASPIRIN 81 MG ENTERIC TABLET PO (09:00)
--- NOTE | 2024-11-01 11:41 | P.NEURO_ITS ---
Neurology EEG Report General Information Date of Study: 11/01/24 TEST EEG DIAGNOSIS Possible TIA CONDITION OF RECORDING awake, drowsy and asleep. EEG NUMBER [id number] CLINICAL HISTORY 79 years old male who had an episode of trouble finding speech and confusion. Patient stated he was speaking with his girlfriend when he could not find the right words to say and seemed confused about what he was saying. Patient stated that prior to this episode it was raining outside and he got lost going home. During tracing, patient seemed alert and oriented, did have trouble finding the right words to say at times and would for CT what he was saying which was frustrating to him. EEG DESCRIPTION Basic resting occipital frequency consists of low to medium voltage 9 to 11 hertz per 2nd alpha admixed with low-voltage 15 to 21 hertz per 2nd beta. Low- voltage beta activity seen diffusely admixed with waxing and waning posterior alpha rhythm and intermittent low to medium voltage 5 to 7 hertz per 2nd theta activity during drowsiness. Bilateral symmetrical sleep activity is noted during sleep is bihemispheric symmetrical sleep spindles and also multiple movements artifacts of the eyes. Photic stimulation not done. Hyperventilation not done. Non paroxysmal. Nonfocal. Non lateralizing. IMPRESSION No significant abnormalities noted. Clinical correlation recommended.
[2024-11-01 11:49] VITALS: BMI 24.8
[2024-11-01 12:00] VITALS: BP 167/55; PULSE 72; PULSE 77; RESP 18; TEMP 36.6; O2SAT 99
--- NOTE | 2024-11-01 15:55 | PM.DS ---
DS: Admitting Diagnosis Discharge Date 11/01/2024 Admitting Diagnosis confusion and expressive aphasia DS: Discharge Diagnosis Discharge Diagnosis (1) Confusion: Code(s): R41.0 - Disorientation, unspecified Status: Acute Assessment and Plan: patient lives alone but girlfriend reported he had new onset confusion minutes prior to arrival denies trauma or recent illness s/p CT brain and CTA head and neck with no significant stenosis in the carotid or vertebral arteries. No intracranial hemmorhage, mass effect or edema. Neurology consulted MRI brain reviewed Apririn 325 mg daily, changed to 81 mg daily prior to discharge atorvastatin hold fentanyl and oxycodone for now, restart oxycodone on discharge, fentanyl held until follow up with his oncologist permissive hypertension - hold home antihypertensives, restarted on discharge (2) Expressive aphasia: Code(s): R47.01 - Aphasia Status: Acute Assessment and Plan: s/p CT brain and CTA head and neck with no significant stenosis in the carotid or vertebral arteries. No intracranial hemmorhage, mass effect or edema. Neurology consulted, will await recommendations MRI brain ordered, results reviewed Apririn 325 mg daily, changed to 81 mg prior to discharge atorvastatin hold fentanyl and oxycodone for now permissive hypertension - hold home antihypertensives, restart on discharge (3) BPH (benign prostatic hyperplasia): Code(s): N40.0 - Benign prostatic hyperplasia without lower urinary tract symptoms Status: Acute Assessment and Plan: continue finasteride continue terazosin (4) HTN (hypertension): Code(s): I10 - Essential (primary) hypertension Status: Acute Assessment and Plan: allow for permissive HTN at this time hold home amlodipine for now, restart on discharge (5) HLD (hyperlipidemia): Code(s): E78.5 - Hyperlipidemia, unspecified Status: Acute Assessment and Plan: continue atorvastatin 80 mg PO daily FLP (6) Mesothelioma: Code(s): C45.9 - Mesothelioma, unspecified Status: Acute Assessment and Plan: patient takes oxycodone and fentanyl at home hold home medications at this time patient ok to restart oxycodone on dischrage, fentanyl stopped and patient to follow up with his oncologist prior to restarting DS: Summary Hospital Course Reason for hospitalization: confusion and expressive aphasia Hospital Course: Patient presents the ER with complaints of acute onset of confusion and expressive aphasia. Stat head and neck CTA showed no significant stenosis in the carotid or vertebral arteries and no intracranial hemorrhage, mass effect or edema. Patient's lab work was essentially unremarkable, urine drug screen was negative. Neurology was consulted. An patient was started on aspirin 325 mg daily in addition to his home atorvastatin. Patient's home pain medications of oxycodone and fentanyl were held on admission. Patient had an MRI of the brain is still not show any acute stroke. patient's mental status returned to baseline a and he had no additional episodes of aphasia while he was in the hospital. Patient was cleared for discharge by Neurology and aspirin was changed to 81 mg p.o. daily. Patient was restarted on his home medications with the exception of final on discharge. Patient is to follow-up with his oncologist before restarting fentanyl as he is not using it on an ongoing basis as it is ordered. Patient was discharged home and will follow-up with his PCP within 1-2 weeks of discharge. Patient will follow-up with his oncologist within 1-2 weeks to discuss pain medications. Time Spent with Patient Time attestation: Total time spent providing and/or coordinating discharge services: Time spent: Greater than 30 minutes Exam Const: General: comfortable and no acute distress Other: A&O x3 HENMT: Mouth: Yes moist mucous membranes Eyes: Pupils: Equal, round and reactive pupils present Other: Pupils 3 mm bilaterally, reactive to light Neck: Neck: supple Resp: Effort & Inspection: normal respiratory effort Auscultation: clear to auscultation bilaterally Cardio: Rate: regular rate Rhythm: regular rhythm GI: Inspection: non-distended Auscultation: normal bowel sounds : General: Yes bladder normal to palpation Skin: General skin exam: normal color and no rashes or lesions noted Neuro: General: deep tendon reflexes 2+ bilaterally Cranial nerves: Yes Equal, round and reactive pupils present Motor exam (neuro): 5/5 motor strength present throughout and Normal motor muscle tone present throughout Sensory Exam: normal sensation Extrem: General: no edema Psych: Other: Distracted thoughts, strings multiple thoughts and ideas together in 1 long sentence. Cannot stay focused on the topic of conversation past a few seconds. DS: Data Data Completed and Pending Labs on day of discharge: Labs from last 24 hours 11/01/24 04:33 WBC 7.7 RBC 4.20 L Hgb 11.6 L Hct 36.8 L MCV 87.6 MCH 27.6 MCHC 31.5 L RDW 16.3 H Plt Count 235 MPV 10.3 Immature Gran % (Auto) 0.3 Neut % (Auto) 62.2 Lymph % (Auto) 16.5 L [place] % (Auto) 8.8 H Eos % (Auto) 11.2 H Baso % (Auto) 1.0 Lymph # (Auto) 1.27 [place] # (Auto) 0.7 H Eos # (Auto) 0.9 H Baso # (Auto) 0.1 Abs Immat Gran (auto) 0.02 Absolute Neuts (auto) 4.8 Absolute Nucleated RBC 0.000 Nucleated RBC % 0.0 Sodium 134 L Potassium 4.2 Chloride 102 Carbon Dioxide 25 Anion Gap 7 BUN 18 Creatinine 0.62 L Estim Creat Clear Calc 77 Estimated GFR > 60 Glucose 101 Calcium 9.2 Total Bilirubin 0.3 AST 34 ALT 31 Alkaline Phosphatase 118 Total Protein 6.6 Albumin 3.6 Preliminary micro results at discharge 10/30/24 23:57 Blood Culture - Preliminary Blood 10/30/24 23:57 Blood Culture - Preliminary Blood Discharge Plan Discharge Attending physician on discharge: Jena Carlson Consulting providers: Ekaterina Blanton; Lion Del Toro; Kanchan Mcdonald; Kalpesh Malhotra; Reese Jamil; Willian Castaneda Discharging Clinician: Kanchan Mcdonald Patient Disposition: Home Activity: as tolerated Diet: heart healthy Discharge Instructions: Please contact your PCP on discharge and ask for a new Echocardiogram to be ordered as an outpatient as part of the images obtained here in the hospital were not adequate. Patient Language: Yi Stand Alone Forms: General Discharge Information Follow-up/Referrals: Bri,BIB Greer [Primary Care Provider, Unknown] Referral Note: Call for an appointment to be seen within 1-2 weeks of discharge. You will need a repeat echocardiogram ordered to be completed as an outpatient. Discharge Medications: New aspirin 81 mg Tablet,Delayed Release (Dr/Ec) 81 mg PO DAILY@0800 Qty: 30 0RF Continued testosterone 50 mg/5 gram (1 %) gel 2 packet transdermal DAILY terazosin 5 mg capsule 5 mg PO DAILY atorvastatin 80 mg tablet 80 mg PO DAILY amlodipine 10 mg tablet 10 mg PO DAILY finasteride 5 mg tablet 5 mg PO DAILY allopurinol 300 mg tablet 300 mg PO DAILY famotidine 20 mg tablet 20 mg PO Q12H Creon 36,000-114,000- 180,000 unit capsule,delayed release(DR/EC) 2 cap PO .TIDMEALS Rx Instructions: 1 CAPSULE WITH SNACKS oxybutynin chloride 10 mg tablet extended release 24hr 10 mg PO DAILY oxycodone 5 mg tablet 5 mg PO Q4H PRN (Reason: pain) sertraline 50 mg tablet 50 mg PO Q24H Gemtesa 75 mg tablet 75 mg PO DAILY Discontinued fentanyl 25 mcg/hr patch 72 hour 1 patch topical Q72H Patient Comments: HASN'T HAD ONE ON FOR 1 WEEK Date of admission: 10/31/24 07:39 Primary Care Provider: Bri,Jostin Ardon Admitting Provider: Jena Carlson Attending physician on admission: Jena Carlson Condition: Improved Quality VTE Prophylaxis VTE prophylaxis: mechanical ordered
[2024-11-01 16:00] VITALS: PULSE 70
--- NOTE | 2024-11-01 17:00 | PC.NURSE ---
Resources given to family from Care Coordination.
== END 2024-11-01 17:00 | disposition home or self-care (01) ==
LOC: ANHED 22:41 → ANH2MED 10-31 16:38
PROVIDERS: Nurse Practitioner Adult Health; Admitting Provider General Practice; Emergency Provider Emergency Medicine; PCP Physician Assistant; Visit Provider General Practice
DX: G45.9 Transient cerebral ischemic attack, unspecified (principal); I10 Essential (primary) hypertension; N40.0 Benign prostatic hyperplasia without lower urinary tract symptoms; E78.5 Hyperlipidemia, unspecified; D64.9 Anemia, unspecified; C45.9 Mesothelioma, unspecified; Z79.891 Long term (current) use of opiate analgesic; Z79.899 Other long term (current) drug therapy; Z80.0 Family history of malignant neoplasm of digestive organs; Z83.2 Family history of diseases of the blood and blood-forming organs and certain disorders involving the immune mechanism
CPT/HCPCS: 36415; 70450; 70496; 70498; 70553; 71045; 80053; 80061; 80307; 81001; 82140; 82607; 82948; 83735; 84443; 85025; 85610; 85730; 87040; 93005; 93306; 95816; 96374; 96375; 97161; 99285; A9270; A9577; C8929; G0378; Q9957; Q9967